=== PATIENT | male | born 1975 | race Caucasian/White ===

== ENCOUNTER 2017-08-25 01:57 | Emergency (ER) | payer BC, OTHER ==
[~2017-08-25] VITALS: Ht 172.7 cm; Wt 94.3 kg
[~2017-08-25 01:57] MED LIST: ERYTHROMYCIN S PO; LEVAQUIN500 MG PO; LORTAB 7.5-5001 EACH PO; PREDNISONE10 MG PO; SYMBICORT 80-10.2 GM INH; TAMSULOSIN HCL0.4 MG PO; TYLENOL WITH C1 EACH PO; VICODIN ES 7.51 EACH PO; ZOFRAN8 MG PO
[2017-08-25] MEDS ORDERED: TRAZODONE HCL50 MG PO (02:51)
[2017-08-25] MEDS ORDERED: PERCOCET 10-321 EACH (02:51)
[2017-08-25] MEDS ORDERED: XANAX0.5 MG (02:51)
[2017-08-25] MEDS ORDERED: BACLOFEN10 MG PO (02:51)
[2017-08-25] MEDS ORDERED: GABAPENTIN400 MG PO (02:51)
[2017-08-25] MEDS ORDERED: METHYLPREDNISOLONE SOD SUCC 125 MG/2ML VIAL IM ONE (03:00)
== END 2017-08-25 02:55 | disposition home or self-care (01) ==
LOC: FSED 01:57
DX: T63.441A Toxic effect of venom of bees, accidental (unintentional), initial encounter (principal); S60.465A Insect bite (nonvenomous) of left ring finger, initial encounter; T78.49XA Other allergy, initial encounter; F17.210 Nicotine dependence, cigarettes, uncomplicated
CPT/HCPCS: 99282; J2930

== ENCOUNTER 2018-02-27 18:04 | Emergency (ER) | payer OTHER ==
[~2018-02-27] VITALS: Ht 172.7 cm; Wt 94.3 kg
[~2018-02-27 18:04] MED LIST changes: +BACLOFEN10 MG PO; +GABAPENTIN400 MG PO; +PERCOCET 10-321 EACH; +TRAZODONE HCL50 MG PO; +XANAX0.5 MG
--- OUTSIDE RECORDS SUMMARY | 2018-02-27 18:11 | XMS REPORT | CCD ---
Author Author Auto Generated Organization [facility] Address Unknown Phone Unavailable Care Team Providers Care Melter Helper Name Role Phone Vic Mauricio CP Allergies, Adverse Reactions, Alerts Substance Reaction Status naproxen Active penicillins Active [place] C Active Toradol Active traMADol Active Ultram Active Zofran Active Problem List Condition Effective Dates Status Kidney calculus Resolved Stent Resolved Medications Medication Instructions Start Date End Date Status morphine Sulfate 4 mg, Route: IVP, Drug form: INJ, 05/16/2013 05/16/2013 Completed ONCE, Dosing Weight 88.636, kg, Priority: STAT, Start date: 05/16/13 15:16:00, Stop date: 05/16/13 15:16:00 Phenergan 12.5 mg, Route: IVPB, ONCE, Dosing 05/16/2013 05/16/2013 Completed Weight 88.636, kg, Priority: STAT, Start date: 05/16/13 15:16:00, Stop date: 05/16/13 15:16:00 Sodium Chloride 0.9% 1,000 mL, Rate: 1,000 ml/hr, Infuse 05/16/2013 05/16/2013 Completed (Bolus) IV 1000 mL over: 1 hr, Route: IV, Dosing Weight 88.636 kg, Total Volume: 1,000, Priority: STAT, Start date: 05/16/13 15:16:00, Duration: 1 doses or times, Stop date: 05/16/13 16:15:00, Bolus Dose Bolus Dose [place] 7.5/325 oral See Instructions, Pain, 1-2 tab PO 05/16/2013 Ordered tablet Q4-6H 5 day, # 12 tab, 0 Refill(s) 1-2 tab PO Q4-6H 5 day morphine Sulfate 2 mg, Route: IVP, Drug form: INJ, 05/16/2013 05/16/2013 Completed ONCE, Dosing Weight 88.636, kg, Priority: STAT, Start date: 05/16/13 16:44:00, Stop date: 05/16/13 16:44:00 influenza virus 0.5 ml, Route: IM, Drug Form: INJ, 02/20/2007 02/20/2007 Completed vaccine, inactivated Start date: 02/20/07 9:00:00 Immunizations Vaccine Date Status influenza virus vaccine, inactivated 02/20/2007 Modified Vital Signs Most recent to oldest [Reference Range]: 1 2 Height 177.8 cm (05/16/2013 15:02:00) Temperature Oral [96.4-99.1 DegF] 98.4 DegF (05/16/2013 17:40:00) 98.2 DegF (05/16/2013 15:02:00) Systolic Blood Pressure [90-140 mmHg] 107 mmHg (05/16/2013 17:40:00) 122 mmHg (05/16/2013 15:02:00) Diastolic Blood Pressure [60-90 mmHg] 65 mmHg (05/16/2013 17:40:00) 79 mmHg (05/16/2013 15:02:00) Respiratory Rate [14-20 BRMIN] 18 BRMIN (05/16/2013 17:40:00) 18 BRMIN (05/16/2013 15:02:00) Peripheral Pulse Rate [60-100 bpm] 62 bpm (05/16/2013 17:40:00) 96 bpm (05/16/2013 15:02:00) Weight 88.636 kg (05/16/2013 15:02:00) Results URINALYSIS Most recent to oldest [Reference Range]: 1 UA Turbidity [Clear] Marked *ABN* (05/16/2013:25:00) UA Color [Yellow] Yellow *NA* (05/16/2013:25:00) UA pH [5.0-8.0] 6.0 (05/16/2013:25:00) UA Spec Grav [<=1.030] 1.011 (05/16/2013:25:00) UA Glucose [Negative mg/dL] Negative mg/dL *NA* (05/16/2013:25:00) UA Blood [Negative] Large *ABN* (05/16/2013:25:00) UA Ketones [Negative mg/dL] Negative mg/dL *NA* (05/16/2013:25:00) UA Protein [Negative mg/dL] Negative mg/dL (05/16/2013:25:00) UA Urobilinogen [0.1-1.0 mg/dL] <=1.0 mg/dL *NA* (05/16/2013:25:00) UA Bili [Negative] Negative *NA* (05/16/2013:25:00) UA Leuk Est [Negative] Small *ABN* (05/16/2013:25:00) UA Nitrite [Negative] Negative (05/16/2013:25:00) UA WBC [0-5 /HPF] 7 /HPF *HI* (05/16/2013:25:00) UA RBC [0-2 /HPF] >182 /HPF *HI* (05/16/2013:25:00) UA Bacteria [None Seen /HPF] Occasional /HPF *NA* (05/16/2013:25:00) UA Sq Epi [Few /LPF] Few /LPF *NA* (05/16/2013:25:00) UA Mucus [None Seen /LPF] Few /LPF *NA* (05/16/2013:25:00) CHEMISTRY Most recent to oldest [Reference Range]: 1 Sodium Lvl [135-145 mEq/L] 138 mEq/L (05/16/2013 15:46:00) Potassium Lvl [3.5-5.1 mEq/L] 3.4 mEq/L *LOW* (05/16/2013:46:00) Chloride Lvl [95-109 mEq/L] 105 mEq/L (05/16/2013:46:00) CO2 [24-32 mEq/L] 25 mEq/L (05/16/2013:46:00) AGAP [10.0-20.0 mEq/L] 11.4 mEq/L (05/16/2013:46:00) Creatinine Lvl [0.5-1.4 mg/dL] 0.9 mg/dL (05/16/2013:46:00) eGFR 106 mL/min/1.73m2 1 *NA* (05/16/2013 15:46:00) BUN [7-22 mg/dL] 6 mg/dL *LOW* (05/16/2013:46:00) Glucose Lvl [70-99 mg/dL] 105 mg/dL 2 *HI* (05/16/2013:46:00) Calcium Lvl [8.5-10.5 mg/dL] 10.2 mg/dL (05/16/2013:46:00) 1Result Comment: The eGFR is calculated using the CKD-EPI formula. In most young, healthy individuals the eGFR will be >90 mL/min/1.73m2. The eGFR declines with age. An eGFR of 60-89 may be normal in some populations, particularly the elderly, for whom the CKD-EPI formula has not been extensively validated. Use of the eGFR is not recommended in the following populations: Individuals with unstable creatinine concentrations, including patients and those with serious co-morbid conditions. Patients with extremes in muscle mass or diet. The data above are obtained from the National Kidney Disease Education Program ( NKDEP) which additionally recommends that when the eGFR is used in patients with extremes of body mass index for purposes of drug dosing, the eGFR should be mul tiplied by the estimated BMI. 2Interpretive Data: Adult reference range values reflect the clinical guidelines of the [place] [employer]. HEMATOLOGY Most recent to oldest [Reference Range]: 1 WBC [3.7-10.4 K/CMM] 13.9 K/CMM *HI* (05/16/2013:46:) RBC [4.70-6.10 M/CMM] 5.01 M/CMM (05/16/2013:46:00) Hgb [14.0-18.0 g/dL] 14.8 g/dL (05/16/2013:46:00) Hct [42.0-54.0 %] 44.3 % (05/16/2013:46:00) MCV [80.0-94.0 fL] 88.4 fL (05/16/2013:46:00) MCH [27.0-31.0 pg] 29.5 pg (05/16/2013:46:00) MCHC [32.0-36.0 g/dL] 33.4 g/dL (05/16/2013 15:46:00) RDW [11.5-14.5 %] 15.7 % *HI* (05/16/2013 15:46:00) Platelet [133-450 K/CMM] 205 K/CMM (05/16/2013 15:46:00) MPV [7.4-10.4 fL] 9.7 fL (05/16/2013 15:46:00) Segs [45.0-75.0 %] 74.8 % (05/16/2013 15:46:00) Lymphocytes [20.0-40.0 %] 17.1 % *LOW* (05/16/2013 15:46:00) Monocytes [2.0-12.0 %] 5.5 % (05/16/2013 15:46:00) Eosinophils [0.0-4.0 %] 2.1 % (05/16/2013 15:46:00) Basophils [0.0-1.0 %] 0.5 % (05/16/2013 15:46:00) Segs-Bands # [1.5-8.1 K/CMM] 10.4 K/CMM *HI* (05/16/2013 15:46:00) Lymphocytes # [1.0-5.5 K/CMM] 2.4 K/CMM (05/16/2013 15:46:00) Monocytes # [0.0-0.8 K/CMM] 0.8 K/CMM (05/16/2013 15:46:00) Eosinophils # [0.0-0.5 K/CMM] 0.3 K/CMM (05/16/2013 15:46:00) Basophils # [0.0-0.2 K/CMM] 0.1 K/CMM (05/16/2013 15:46:00) PT [12.0-14.7 seconds] 11.4 seconds *LOW* (05/16/2013 15:46:00) INR [0.85-1.17] 0.83 3 *LOW* (05/16/2013 15:46:00) PTT [22.9-35.8 seconds] 27.1 seconds 4 (05/16/2013 15:46:00) 3Interpretive Data: RECOMMENDED RANGES FOR PROTIME INR: 2.0-3.0 for most medical and surgical thromboembolic states. 2.5-3.5 for artificial heart valves and recurrent embolism. INR SHOULD BE USED ONLY FOR PATIENTS ON STABLE ANTICOAGULANT THERAPY. 4Interpretive Data: Heparin Therapeutic Range: 57 - 92 Seconds
--- OUTSIDE RECORDS SUMMARY | 2018-02-27 18:11 | XMS REPORT | CCD ---
Author Author Auto Generated Organization [facility] Address Unknown Phone Unavailable Care Team Providers Care Dice Table Person Name Role Phone Vic Mauricio CP Allergies, Adverse Reactions, Alerts Substance Reaction Status naproxen Active penicillins Active [place] C Active Toradol Active traMADol Active Ultram Active Zofran Active Problem List Condition Effective Dates Status Kidney calculus Resolved Stent Resolved Medications Medication Instructions Start Date End Date Status influenza virus 0.5 ml, Route: IM, Drug Form: INJ, 02/20/2007 02/20/2007 Completed vaccine, inactivated Start date: 02/20/07 9:00:00 Immunizations Vaccine Date Status influenza virus vaccine, inactivated 02/20/2007 Modified Vital Signs Most recent to oldest [Reference Range]: 1 Height 177.8 cm (02/25/2013 15:47:00) Temperature Oral [96.4-99.1 DegF] 98.5 DegF (02/25/2013 15:47:00) Systolic Blood Pressure [90-140 mmHg] 109 mmHg (02/25/2013 15:47:00) Diastolic Blood Pressure [60-90 mmHg] 65 mmHg (02/25/2013 15:47:00) Respiratory Rate [14-20 BRMIN] 18 BRMIN (02/25/2013 15:47:00) Peripheral Pulse Rate [60-100 bpm] 88 bpm (02/25/2013 15:47:00) Weight 88.636 kg (02/25/2013 15:47:00)
--- OUTSIDE RECORDS SUMMARY | 2018-02-27 18:11 | XMS REPORT | Continuity of Care Document ---
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 ml/hr, Infuse over: 4 hr, Route: IV, Dosing Weight 94.591 kg, Total Volume: 500, Start date: 05/23/16 10:10:00 [employer], Duration: 30 day, Stop date: 06/22/16 10:09:00 [employer] No Longer Active 05/23/2016 [facility] Calcium Chloride 0.0014 MEQ/ML / Potassium Chloride 0.004 MEQ/ML / Sodium Chloride 0.103 MEQ/ML / Sodium Lactate 0.028 MEQ/ML Injectable Solution 1,000 mL, Rate: 125 ml/hr, Infuse over: 8 hr, Route: IV, Dosing Weight 94.591 kg, Total Volume: 1,000, Start date: 05/23/16 10:10:00 [employer], Duration: 30 day, Stop date: 06/22/16 10:09:00 [employer] No Longer Active 05/23/2016 [facility] propofol (ANES) Route: IV, Drug form: INJ, ONCE, Stop date: 05/23/16 10:01:00 [employer] Inactive 05/23/2016 [facility] lidocaine (ANES) Route: IV, Drug form: INJ, ONCE, Stop date: 05/23/16 10:01:00 [employer] Inactive 05/23/2016 [facility] fentaNYL (ANES) Route: IV, Drug form: INJ, ONCE, Stop date: 05/23/16 10:01:00 [employer] Inactive 05/23/2016 [facility] dexamethasone (ANES) Route: IV, Drug form: INJ, ONCE, Stop date: 05/23/16 9:56:00 [employer] Inactive 05/23/2016 [facility] famotidine (ANES) Route: IV, Drug form: INJ, ONCE, Stop date: 05/23/16 9:56:00 [employer] Inactive 05/23/2016 [facility] metoclopramide (ANES) Route: IV, Drug form: INJ, ONCE, Stop date: 05/23/16 9:56:00 [employer] Inactive 05/23/2016 [facility] midazolam (ANES) Route: IV, Drug form: SOLN, ONCE, Stop date: 05/23/16 9:46:00 [employer] Inactive 05/23/2016 [facility] LR 1000 mL INJ (ANES) Route: IV, Total Volume: 1,000, Start date: 05/23/16 9:05:00 [employer], Stop date: 05/23/16 10:05:00 [employer] Inactive 05/23/2016 [facility] Albuterol 0.833 MG/ML / Ipratropium Barry 0.167 MG/ML Inhalant Solution 3 mL, Route: NEB, Dosing Weight 94.591, kg, ONCE, STAT, Start date: 05/23/16 8:55:00 [employer], Stop date: 05/23/16 8:55:00 [employer] Inactive 05/23/2016 [facility] Calcium Chloride 0.0014 MEQ/ML / Potassium Chloride 0.004 MEQ/ML / Sodium Chloride 0.103 MEQ/ML / Sodium Lactate 0.028 MEQ/ML Injectable Solution 1,000 mL, Rate: 25 ml/hr, Infuse over: 40 hr, Route: IV, Dosing Weight 94.591 kg, Total Volume: 1,000, Start date: 05/23/16 8:55:00 [employer], Duration: 30 day, Stop date: 06/22/16 8:54:00 [employer] Inactive 05/23/2016 [facility] Sodium Chloride 0.154 MEQ/ML Injectable Solution 500 mL, Rate: 25 ml/hr, Infuse over: 20 hr, Route: IV, Dosing Weight 94.591 kg, Total Volume: 500, Start date: 05/23/16 8:55:00 [employer], Duration: 30 day, Stop date: 06/22/16 8:54:00 [employer] Inactive 05/23/2016 [facility] Breo Ellipta INHALATION, Daily, 0 Refill(s) Active 05/21/2016 [facility] Albuterol 1 MG/ML Inhalant Solution 2.5 mg, INHALATION, Q6H, PRN wheezing, # 20 ea, 0 Refill(s) Active 05/21/2016 [facility] Acetaminophen 33.3 MG/ML / Diphenhydramine Hydrochloride 1.67 MG/ML Oral Solution [Tylenol PM] 30 ml, PO, Bedtime, PRN for sleep, # 240 ml, 0 Refill(s) Active 05/21/2016 [facility] Trazodone PO, 0 Refill(s) Active 05/21/2016 [facility] Acetaminophen 325 MG / Hydrocodone Bitartrate 10 MG Oral Tablet [[place] 10/325] 1 tab, PO, Q6H, 0 Refill(s) Active 05/21/2016 [facility] Cipro 400 mg, Route: IVPB, [id number], Dosing Weight 99.716, kg, Start date: 05/18/16 9:00:00 [employer], Duration: 30 day, Stop date: 06/16/16 21:00:00 [employer] No Longer Active 05/18/2016 [facility] Breo Ellipta 1 puff Inhalation Active 100-25 MCG/INH Inhalation Once a day Ijeoma 05/09/2016 [facility]ерг[facility] Medrol as directed Orally Active 4 MG Orally as directed 05/09/2016 Сергей [facility] Albuterol Sulfate HFA 2 puffs as needed Inhalation Active 108 (90 Base) MCG/ACT Inhalation every 4 hrs 05/09/2016 Сергей Morales MethylPREDNISolone as directed Orally Active 4 MG Orally as directed 03/14/2016 Сергей Morales Carbamide Peroxide as directed Otic Active 6.5 % Otic as directed 03/14/2016 Сергей Morales Levofloxacin 1 tablet Orally Active 500 MG Orally Once a day 03/14/2016 Сергей Marshall Permethrin as directed Externally Active 1 % Externally as directed 02/06/2016 Сергей Morales Acetaminophen-Codeine #3 1 tablet as needed Orally Active 300- 30 MG Orally twice a day (bid) as needed (prn) [facility] 11/25/2015 Сергей Morales Synthroid 1 tablet Orally Active 75 MCG Orally Once a day [facility] 07/14/2015 Сергей Morales fentaNYL 50 mcg/hr transdermal film, extended release 1 patch, TOP, Q72H, # 10 patch, 0 Refill(s), given to patient Active 11/04/2014 [facility] Acetaminophen 325 MG / Hydrocodone Bitartrate 10 MG Oral Tablet [[place] 10/325] 1 tab, PO, Q4H, PRN for pain, X 10 day, # 60 tab, 0 Refill(s), given to patient Active 11/04/2014 [facility] Duragesic-50 1 patch, Route: TOP, Dosing Weight 88.636, kg, Q72H, Start date: 11/04/14 14:00:00, Duration: 30 day, Stop date: 12/01/14 14:00:00 Inactive 11/04/2014 [facility] Metronidazole 500 MG Oral Tablet [Flagyl] 500 mg=1 tab, PO, Q8H, X 7 day, # 21 tab, 0 Refill(s) Active 11/04/2014 [facility] Ciprofloxacin 500 MG Oral Tablet [Cipro] 500 mg=1 tab, PO, Q12H, X 7 day, # 14 tab, 0 Refill(s) Active 11/04/2014 [facility] temazepam 15 mg oral capsule 15 mg=1 cap, PO, Bedtime, PRN Sleep, # 30 cap, 0 Refill(s) Active 11/04/2014 [facility] levothyroxine 75 mcg (0.075 mg) oral tablet 75 microgram=1 tab, PO, Daily, # 30 tab, 0 Refill(s) Active 11/04/2014 [facility] Duragesic-25 1 patch, Route: TOP, Drug Form: ERFILM, Q72H, Start date: 11/04/14 10:00:00, Duration: 30 day, Stop date: 12/01/14 10:00:00Notes: (Same as: Duragesic) Check for product integrity. Apply to intact skin "Remove old patch before application of new patch" Inactive 11/04/2014 [facility] Acetaminophen 325 MG / Hydrocodone Bitartrate 10 MG Oral Tablet 1 tab, Route: PO, Drug Form: TAB, Dosing Weight 88.636, kg, Q4H, PRN Pain Score 1-5, Start date: 11/04/14 9:23:00, Duration: 30 day, Stop date: 12/04/14 9:22:00Notes: Do not exceed 4gm/day of acetaminophen. (Same as: [place] 325/10) Inactive 11/04/2014 [facility] pantoprazole 40 mg, 1 tab, Route: PO, Drug form: ECTAB, Before Dinner, Dosing Weight 88.636, kg, Start date: 11/03/14 16:30:00, Duration: 30 day, Stop date: 12/02/14 16:30:00Notes: Tablet should not be chewed or crushed. (Same as: Protonix) No Longer Active 11/03/2014 [facility] meropenem 500 mg, Route: IVPB, ABXQ6H, Dosing Weight 88.636, kg, CrCL=26 -49 ml/min, Extended infusion, infuse over 3 hours, Start date: 11/03/14 11:00:00, Duration: 30 day, Stop date: 12/03/14 5:00:00Notes: Same as Merrem MEDICATION WASTE Product Size: 500 mg Product Wasted: ___ mg No Longer Active 11/03/2014 [facility] Tylenol 650 mg, 2 tab, Route: PO, Drug form: TAB, TID, Dosing Weight 88.636, kg, PRN For Temp > 100.4 F, Start date: 11/03/14 10:09:00, Duration: 30 day, Stop date: 12/03/14 10:08:00, feverNotes: Do not exceed 4 gm/day. (Same as: Tylenol) No Longer Active 11/03/2014 [facility] pantoprazole 40 mg, 1 tab, Route: PO, Drug form: ECTAB, Daily, Dosing Weight 88.636, kg, Start date: 11/03/14 9:00:00, Duration: 30 day, Stop date: 12/02/14 9:00:00Notes: Tablet should not be chewed or crushed. ( Same as: Protonix) No Longer Active 11/03/2014 [facility] Famotidine 20 mg, 1 tab, Route: PO, Drug form: TAB, Q12H, Dosing Weight 88.636, kg, Start date: 11/02/14 21:00:00, Duration: 30 day, Stop date: 12/02/14 9:00:00Notes: (Same as: Pepcid) No Longer Active 11/03/2014 [facility] Dilaudid 0.5 mg, Route: IVP, ONCE, Dosing Weight 88.636, kg, Priority: STAT, Start date: 11/02/14 14:38:00, Stop date: 11/02/14 14:38:00 Inactive 11/02/2014 [facility] Dilaudid 0.5 mg, Route: IVP, ONCE, Dosing Weight 88.636, kg, Priority: STAT, Start date: 11/02/14 14:36:00, Stop date: 11/02/14 14:36:00 Inactive 11/02/2014 [facility] Fentanyl 50 microgram, Route: IVP, ONCE, Dosing Weight 88.636, kg, Start date: 11/02/14 14:26:00, Stop date: 11/02/14 14:26:00 Inactive 11/02/2014 [facility] Fentanyl 50 microgram, Route: IVP, ONCE, Dosing Weight 88.636, kg, Start date: 11/02/14 14:18:00, Stop date: 11/02/14 14:18:00 Inactive 11/02/2014 [facility] NS + KCL 20mEq/L 1000ml (Premix) 1,000 mL 1,000 mL, Rate: 60 ml/hr, Infuse over: 16.7 hr, Route: IV, Dosing Weight 88.636 kg, Total Volume: 1,000, Start date: 11/02/14 13:28:00, Duration: 30 day, Stop date: 12/02/14 13:27:00Notes: PREMIX IV - Do Not Alter No Longer Active 11/02/2014 [facility] Hydromorphone 1 mg, 1 mL, Route: IVP, Drug form: INJ, Q3H, Dosing Weight 88.636, kg, PRN Pain Score 4-6, Start date: 11/02/14 13:28:00, Duration: 30 day, Stop date: 12/02/14 13:27:00 No Longer Active 11/02/2014 [facility] Ondansetron 4 mg, 2 mL, Route: IVP, Drug form: INJ, Q6H, Dosing Weight 88.636, kg, PRN Nausea & Vomiting, Start date: 11/02/14 13:28:00, Duration: 30 day, Stop date: 12/02/14 13:27:00Notes: (Same as: Zofran) MEDICATION WASTE Product Size: 4 mg Product Wasted: ___ mg No Longer Active 11/02/2014 [facility] Cefoxitin 2 gm, Route: IVPB, ONCE, Dosing Weight 88.636, kg, Start date: 11/02/14 12:14:00, Stop date: 11/02/14 12:14:00Notes: (Same As: Mefoxin) MEDICATION WASTE Product Size: 2000 mg Product Wasted: ___ mg Inactive 11/02/2014 [facility] onabotulinumtoxinA 100 unit, Route: INJ, Drug form: INJ, ONCE, Dosing Weight 88.636, kg, Start date: 11/02/14 12:04:00, Stop date: 11/02/14 12:04:00Notes: "TO BE RECONSTITUTED AND ADMINISTERED ONLY BY A PHYSICIAN" Reconstitute with preservative free NS only. Stability=4 hours after reconstitution. (Same As: Botox) Inactive 11/02/2014 [facility] Exparel 20 mL, Route: InFILtration(local), Drug Form: INJ, Dosing Weight 88.636, kg, ONCALL, For Hemorrhoidectomy, Start date: 11/02/14 12:00:00, Duration: 1 day, Stop date: 11/03/14 11:59:00Notes: (Same as: Exparel) NOT FOR IV use Postoperative analgesia: Infiltration (local): Dose is based on surgical site and volume required to cover the area (in general, the maximum total dose is 266 mg). Bunionectomy: 7 mL into the tissues surrounding the osteotomy and 1 mL into the subcutaneous tissue of the surgical site (total dose=8 mL [106 mg]) Hemorrhoidectomy: 30 mL (20 mL vial diluted with 10 mL NS) d ivided and administered as 6 injections of 5 mL each (total dose=30 mL [266 mg]) No Longer Active 11/02/2014 [facility] Lactated Ringers IV 500 mL 500 mL, Rate: 25 ml/hr, Infuse over: 20 hr, Route: IV, Dosing Weight 88.636 kg, Total Volume: 500, Start date: 11/02/14 11:41:00, Duration: 30 day, Stop date: 12/02/14 11:40:00 Inactive 11/02/2014 [facility] Ativan 1 mg, 0.5 mL, Route: IVP, Drug form: INJ, ONCE, Dosing Weight 88.636, kg, PRN Anxiety, Start date: 11/02/14 9:31:00Notes: (Same as: Ativan) Inactive 11/02/2014 [facility] 120 ACTUAT Fluticasone propionate 0.05 MG/ACTUAT Nasal Inhaler 50 microgram, Route: NASAL, Drug Form: SPRY, Dosing Weight 88.636, kg, Daily, Start date: 11/02/14 9:00:00, Duration: 30 day, Stop date: 12/01/14 9:00:00Notes: (Same as: Flonase) No Longer Active 11/02/2014 [facility] Thyroxine 50 microgram, 1 tab, Route: PO, Drug form: TAB, Q630AM, Dosing Weight 88.636, kg, Start date: 11/02/14 6:30:00, Duration: 30 day, Stop date: 12/01/14 6:30:00Notes: Take 1 hour before or 2 hours after meal; Enteral feeds may interefere with the absorption of this medication.(Same as:Levothroid, Synthroid) No Longer Active 11/02/2014 [facility] Amitriptyline 25 mg, 1 tab, Route: PO, Drug form: TAB, Bedtime, Dosing Weight 88.636, kg, Start date: 11/01/14 21:00:00, Duration: 30 day, Stop date: 11/30/14 21:00:00Notes: (Same as: Elavil) No Longer Active 11/02/2014 [facility] quetiapine 100 mg, 1 tab, Route: PO, Drug form: TAB, Bedtime, Dosing Weight 88.636, kg, Start date: 11/01/14 21:00:00, Duration: 30 day, Stop date: 11/30/14 21:00:00Notes: (Same as: SEROquel) No Longer Active 11/02/2014 [facility] Temazepam 15 mg, 1 cap, Route: PO, Drug form: CAP, Bedtime, Dosing Weight 88.636, kg, PRN Sleep, Start date: 11/01/14 17:24:00, Duration: 30 day, Stop date: 12/01/14 17:23:00Notes: (Same As: Restoril) No Longer Active 11/01/2014 [facility] metaxalone 800 mg, 1 tab, Route: PO, Drug form: TAB, BID, Dosing Weight 88.636, kg, Start date: 11/01/14 17:00:00, Duration: 30 day, Stop date: 12/01/14 9:00:00Notes: (Same as: Skelaxin) No Longer Active 11/01/2014 [facility] Hydrocortisone 25 MG/ML Rectal Cream [Anusol HC] 1 appl, Route: KS, BID, Drug form: CRM/A, Start date: 11/01/14 17:00:00, Duration: 30 day, Stop date: 12/01/14 9:00:00Notes: (Same as: Anusol-HC, Proctosol-HC) No Longer Active 11/01/2014 [facility] pantoprazole 40 mg, 1 tab, Route: PO, Drug form: ECTAB, Before Dinner, Dosing Weight 88.636, kg, Start date: 11/01/14 16:30:00, Duration: 30 day, Stop date: 11/30/14 16:30:00Notes: Tablet should not be chewed or crushed. (Same as: Protonix) No Longer Active 11/01/2014 [facility] Duragesic-25 1 patch, Route: TOP, Drug Form: ERFILM, Q72H, Start date: 11/01/14 15:00:00, Duration: 30 day, Stop date: 11/28/14 15:00:00Notes: (Same as: Duragesic) Check for product integrity. Apply to intact skin "Remove old patch before application of new patch" No Longer Active 11/01/2014 [facility] Dilaudid 1 mg, 1 mL, Route: IVP, Drug form: INJ, Q3H, Dosing Weight 88.636, kg, PRN Pain Score 7-10, Start date: 11/01/14 14:56:00, Duration: 30 day, Stop date: 12/01/14 14:55:00 No Longer Active 11/01/2014 [facility] Nicotine Route: TOP, Drug form: ERFILM, Q24H, Dosing Weight 88.636, kg, Start date: 11/01/14 13:00:00, Duration: 30 day, Stop date: 11/30/14 13:00:00Notes: (Same as: Habitrol) "Remove old patch before application of new patch" No Longer Active 11/01/2014 [facility] gabapentin 600 MG Oral Tablet 600 mg, 2 cap, Route: PO, Drug form: CAP, TID, Dosing Weight 88.636, kg, Start date: 11/01/14 13:00:00, Duration: 30 day, Stop date: 12/01/14 9:00:00Notes: (Same as: Neurontin) No Longer Active 11/01/2014 [facility] Baclofen Route: PO, Drug form: TAB, TID, Dosing Weight 88.636, kg, Start date: 11/01/14 13:00:00, Duration: 30 day, Stop date: 12/01/14 9:00:00Notes: (Same As: Lioresal) No Longer Active 11/01/2014 [facility] Alprazolam 2 MG Oral Tablet [Xanax] 2 mg, 2 tab, Route: PO, Drug form: TAB, TID, Dosing Weight 88.636, kg, Start date: 11/01/14 13:00:00, Duration: 30 day, Stop date: 12/01/14 9:00:00Notes: With food or milk (Same as: Xanax) No Longer Active 11/01/2014 [facility] Fentanyl 25 microgram, Route: TOP, Drug form: ERFILM, Q72H, Dosing Weight 88.636, kg, Start date: 11/01/14 11:00:00, Duration: 30 day, Stop date: 11/28/14 11:00:00Notes: (Same as: Duragesic) Check for product integrity. Apply to intact skin "Remove old patch before application of new patch" Inactive 11/01/2014 [facility] Phenergan 12.5 mg, 0.5 mL, Route: IVPB, TID, Dosing Weight 88.636, kg, PRN as needed for nausea/vomiting, Priority: STAT, Start date: 11/01/14 10:49:00, Duration: 30 day, Stop date: 12/01/14 10:48:00Notes: Do not give IV push. (Same as: Phenergan) No Longer Active 11/01/2014 [facility] Docusate 100 mg, Route: PO, BID, Dosing Weight 88.636, kg, PRN Constipation, Start date: 11/01/14 10:47:00, Duration: 30 day, Stop date: 12/01/14 10:46:00 Inactive 11/01/2014 [facility] Promethazine 25 mg, 1 tab, Route: PO, Drug form: TAB, Q6H, Dosing Weight 88.636, kg, PRN as needed for nausea/vomiting, Start date: 11/01/14 10:43:00, Duration: 30 day, Stop date: 12/01/14 10:42:00Notes: (Same as : Phenergan) No Longer Active 11/01/2014 [facility] Docusate Sodium 100 MG Oral Capsule [Colace] 100 mg, 1 cap, Route: PO, Drug form: CAP, BID, Dosing Weight 88.636, kg, PRN as needed for constipation, Start date: 11/01/14 10:42:00, Duration: 30 day, Stop date: 12/01/14 10:41:00Notes: (Same as: Colace) (Do Not Crush) No Longer Active 11/01/2014 [facility] Acetaminophen 325 MG / Hydrocodone Bitartrate 10 MG Oral Tablet 1 tab, Route: PO, Drug Form: TAB, Dosing Weight 88.636, kg, Q6H, PRN Pain Score 1-5, Start date: 11/01/14 10:42:00, Duration: 30 day, Stop date: 12/01/14 10:41:00Notes: Do not exceed 4gm/day of acetaminophen. (Same as: [place] 325/10) No Longer Active 11/01/2014 [facility] Phenergan 12.5 mg, 0.5 mL, Route: IVPB, ONCE, Dosing Weight 88.636, kg, Priority: STAT, Start date: 11/01/14 9:21:00, Stop date: 11/01/14 9:21:00Notes: Do not give IV push. (Same as: Phenergan) Inactive 11/01/2014 [facility] Morphine 4 mg, 2 mL, Route: IVP, Drug form: INJ, ONCE, Dosing Weight 88.636, kg, Priority: STAT, Start date: 11/01/14 7:35:00, Stop date: 11/01/14 7:35:00Notes: (Same as:MORPhine Sulfate) Inactive 11/01/2014 [facility] Sodium Chloride 0.154 MEQ/ML Injectable Solution 1,000 mL, 1000 ml/hr, Infuse Over: 1 hr, Route: IV, 1,000, Drug form: INJ, ONCE, Priority: STAT, Dosing Weight 88.636 kg, Start date: 11/01/14 7:35:00, Duration: 1 doses or times, Stop date: 11/01/14 7:35:00 Inactive 11/01/2014 [facility] Saline Flush 0.9% 10 mL, Route: IVP, Drug Form: INJ, Dosing Weight 88.636, kg, PRN, PRN Line Flush, Start date: 11/01/14 7:35:00, Duration: 30 day, Stop date: 12/01/14 7:34:00Notes: (Same as: BD Posiflush) No Longer Active 11/01/2014 [facility] Alprazolam 2 MG Oral Tablet [Xanax] 2 mg=1 tab, PO, TID, 0 Refill(s) Active 11/01/2014 [facility] quetiapine 100 mg, PO, Bedtime, 0 Refill(s) Active 11/01/2014 [facility] metaxalone 800 mg, PO, BID, 0 Refill(s) Active 11/01/2014 [facility] Lidocaine 40 MG/ML Topical Cream 1 appl, Route: TOP, TID, Start date: 10/22/14 9:00:00, Duration: 30 day, Stop date: 11/20/14 17:00:00 Inactive 10/22/2014 [facility] Docusate Sodium 100 MG Oral Capsule [Colace] 100 mg=1 cap, PO, BID, PRN Constipation, # 20 cap, 0 Refill(s) Active 10/22/2014 [facility] Hydrocortisone 25 MG/ML Rectal Cream [Anusol HC] 1 appl, KS, BID, X 14 day, # 30 gm, 0 Refill(s) Active 10/22/2014 [facility] Lidocaine 40 MG/ML Topical Cream 1 appl, Route: TOP, ONCE, Drug form: OINT, Start date: 10/22/14 3:53:00, Stop date: 10/22/14 3:53:00Notes: (Same as: Xylocaine) Inactive 10/22/2014 [facility] 24 HR Nicotine 0.875 MG/HR Transdermal Patch =1 patch, TOP, Daily, X 42 day, # 42 patch, 0 Refill(s) Active 09/27/2014 [facility] Aspirin 81 MG Enteric Coated Tablet 81 mg=1 tab, PO, Daily, 0 Refill(s) Active 09/27/2014 [facility] pantoprazole 40 mg, 1 tab, Route: PO, Drug form: ECTAB, Daily, Dosing Weight 89.091, kg, Start date: 09/27/14 9:00:00, Duration: 30 day, Stop date: 10/26/14 9:00:00Notes: Tablet should not be chewed or crushed. ( Same as: Protonix) Inactive 09/27/2014 [facility] Thyroxine 50 microgram, 1 tab, Route: PO, Drug form: TAB, Daily, Dosing Weight 89.091, kg, Start date: 09/27/14 9:00:00, Duration: 30 day, Stop date: 10/26/14 9:00:00Notes: Take 1 hour before or 2 hours after meal; Enteral feeds may interefere with the absorption of this medication.(Same as:Levothroid, Synthroid) Inactive 09/27/2014 [facility] gabapentin 600 MG Oral Tablet 600 mg, 2 cap, Route: PO, Drug form: CAP, TID, Dosing Weight 89.091, kg, Start date: 09/27/14 9:00:00, Duration: 30 day, Stop date: 10/26/14 17:00:00Notes: (Same as: Neurontin) No Longer Active 09/27/2014 [facility] 120 ACTUAT Fluticasone propionate 0.05 MG/ACTUAT Nasal Inhaler 50 microgram, Route: NASAL, Drug Form: SPRY, Dosing Weight 89.091, kg, Daily, Start date: 09/27/14 9:00:00, Duration: 30 day, Stop date: 10/26/14 9:00:00Notes: (Same as: Flonase) Inactive 09/27/2014 [facility] Baclofen Route: PO, Drug form: TAB, TID, Dosing Weight 89.091, kg, Start date: 09/27/14 9:00:00, Duration: 30 day, Stop date: 10/26/14 17:00:00Notes: (Same As: Lioresal) No Longer Active 09/27/2014 [facility] Aspirin 81 MG Enteric Coated Tablet 81 mg, 1 tab, Route: PO, Drug form: ECTAB, Daily, Dosing Weight 89.205, kg, Start date: 09/27/14 9:00:00, Duration: 30 day, Stop date: 10/26/14 9:00:00Notes: Do not crush or chew. (Same As: Ecotrin) Inactive 09/27/2014 [facility] Baclofen Route: PO, Drug form: TAB, TID, Dosing Weight 89.091, kg, Start date: 09/26/14 21:00:00, Duration: 30 day, Stop date: 10/26/14 17:00:00Notes: (Same As: Lioresal) No Longer Active 09/27/2014 [facility] gabapentin 600 MG Oral Tablet 600 mg, 2 cap, Route: PO, Drug form: CAP, TID, Dosing Weight 89.091, kg, Start date: 09/26/14 21:00:00, Duration: 30 day, Stop date: 10/26/14 17:00:00Notes: (Same as: Neurontin) No Longer Active 09/27/2014 [facility] Amitriptyline 25 mg, 1 tab, Route: PO, Drug form: TAB, Bedtime, Dosing Weight 89.091, kg, Start date: 09/26/14 21:00:00, Duration: 30 day, Stop date: 10/25/14 21:00:00Notes: (Same as: Elavil) No Longer Active 09/27/2014 [facility] Saline Flush 0.9% 10 ml, Route: IVP, Drug Form: INJ, Dosing Weight 89.205, kg, Q12H, Start date: 09/26/14 21:00:00, Duration: 30 day, Stop date: 10/26/14 9:00:00Notes: (Same as: BD Posiflush) No Longer Active 09/27/2014 [facility] Fentanyl 25 microgram, Route: TOP, Drug form: ERFILM, Q72H, Dosing Weight 89.091, kg, Start date: 09/26/14 18:00:00, Duration: 30 day, Stop date: 10/23/14 18:00:00Notes: (Same as: Duragesic) Check for product integrity. Apply to intact skin "Remove old patch before application of new patch" No Longer Active 09/26/2014 [facility] Promethazine 25 mg, 1 tab, Route: PO, Drug form: TAB, Q6H, Dosing Weight 89.091, kg, PRN as needed for nausea/vomiting, Start date: 09/26/14 17:52:00, Duration: 30 day, Stop date: 10/26/14 17:51:00Notes: (Same as : Phenergan) No Longer Active 09/26/2014 [facility] Acetaminophen 325 MG / Hydrocodone Bitartrate 10 MG Oral Tablet [[place] 10/325] 2 tab, Route: PO, Drug Form: TAB, Dosing Weight 89.091, kg, Q6H, PRN Pain Score 6-10, Start date: 09/26/14 17:51:00, Duration: 30 day, Stop date: 10/26/14 17:50:00Notes: Do not exceed 4gm/day of acetaminophen. (Same as: [place] 325/10) No Longer Active 09/26/2014 [facility] Acetaminophen 325 MG / Hydrocodone Bitartrate 10 MG Oral Tablet 1 tab, Route: PO, Drug Form: TAB, Dosing Weight 89.091, kg, Q6H, PRN Pain Score 1-5, Start date: 09/26/14 17:51:00, Duration: 30 day, Stop date: 10/26/14 17:50:00Notes: Do not exceed 4gm/day of acetaminophen. (Same as: [place] 325/10) No Longer Active 09/26/2014 [facility] Nicotine 21 mg, 1 patch, Route: TOP, Drug form: ERFILM, Daily, Dosing Weight 89.091, kg, Priority: NOW, Start date: 09/26/14 16:18:00, Duration: 30 day, Stop date: 10/26/14 9:00:00Notes: (Same as: Habitrol) &quo t;Remove old patch before application of new patch" No Longer Active 09/26/2014 [facility] gabapentin 600 MG Oral Tablet 600 mg=1 tab, PO, TID Active 09/26/2014 [facility] fentaNYL 25 mcg/hr transdermal film, extended release 1 patch, TOP, Q72H Active 09/26/2014 [facility] promethazine 25 mg oral tablet 25 mg=1 tab, PO, Q6H, PRN as needed for nausea/vomiting, 0 Refill(s) Active 09/26/2014 [facility] Acetaminophen 325 MG / Hydrocodone Bitartrate 10 MG Oral Tablet [[place] 10/325] 2 tab, PO, Q6H, PRN Pain Score 6-10, 0 Refill(s) No Longer Active 09/26/2014 [facility] amitriptyline 25 mg oral tablet 25 mg=1 tab, PO, Bedtime, 0 Refill(s) Active 09/26/2014 [facility] atropine 0.5 mg, 5 mL, Route: IVP, Drug form: INJ, PRN, PRN Bradycardia, Start date: 09/26/14 14:56:00, Duration: 30 day, Stop date: 10/26/14 14:55:00 No Longer Active 09/26/2014 [facility] Saline Flush 0.9% 10 ml, Route: IVP, Drug Form: INJ, Dosing Weight 89.205, kg, PRN, PRN Line Flush, Start date: 09/26/14 14:42:00, Duration: 30 day, Stop date: 10/26/14 14:41:00 Inactive 09/26/2014 [facility] Nitroglycerin 0.4 mg, 1 tab, Route: SL, Drug form: TAB, Q5Min, Dosing Weight 89.205, kg, PRN Chest Pain, Start date: 09/26/14 14:42:00, Duration: 3 doses or times, Stop date: Limited # of timesNotes: (Same as:Nitroqu ick, Nitrostat) "Do Not Crush" Sublingual tablet No Longer Active 09/26/2014 [facility] Lovenox 90 mg, 0.9 mL, Route: SUB-Q, Drug form: INJ, ONCE, Dosing Weight 89.205, kg, Priority: NOW, Start date: 09/26/14 14:04:00, Stop date: 09/26/14 14:04:00Notes: Nurse to ensure documentation of patient education per anticoagulation policy. (Same as: Lovenox) Inactive 09/26/2014 [facility] 120 ACTUAT Fluticasone propionate 0.05 MG/ACTUAT Nasal Inhaler 1 spray, NASAL, Daily, in each nostrilSpecial Instructions: in each nostril Active 09/26/2014 [facility] baclofen 10 mg oral tablet 1 tab-2tab, PO, TID Active 09/26/2014 [facility] gabapentin 300 MG Oral Capsule 600 mg=2 cap, PO, TID Inactive 09/26/2014 [facility] Acetaminophen 325 MG / Hydrocodone Bitartrate 10 MG Oral Tablet 1 tab, PO, Q6H, PRN Pain Score 1-5 Active 09/26/2014 [facility] fentaNYL 50 mcg/hr transdermal film, extended release 1 patch, TOP, Q72H Inactive 09/26/2014 [facility] levothyroxine 50 mcg (0.05 mg) oral tablet 50 microgram=1 tab, PO, Daily Active 09/26/2014 [facility] pantoprazole 40 mg oral enteric coated tablet 40 mg=1 tab, PO, Daily Active 09/26/2014 [facility] Aspirin 324 mg, Route: PO, ONCE, Dosing Weight 89.205, kg, Priority: STAT, Start date: 09/26/14 8:08:00, Stop date: 09/26/14 8:08:00 Inactive 09/26/2014 [facility] Saline Flush 0.9% 10 mL, Route: IVP, Drug Form: INJ, Dosing Weight 89.205, kg, PRN, PRN Line Flush, Start date: 09/26/14 8:08:00, Duration: 30 day, Stop date: 10/26/14 8:07:00Notes: (Same as: BD Posiflush) Inactive 09/26/2014 [facility] Acetaminophen 325 MG / Hydrocodone Bitartrate 5 MG Oral Tablet [[place] 5/325] 1-2 tab, PO, Q4-6H, PRN Pain, X 5 day, # 15 tab, 0 Refill(s) Active 08/29/2014 [facility] Dilaudid 0.5 mg, Route: IM, ONCE, Dosing Weight 84.545, kg, Start date: 08/29/14 12:12:00, Stop date: 08/29/14 12:12:00 Inactive 08/29/2014 [facility] Morphine 4 mg, Route: IVP, Drug form: INJ, ONCE, Dosing Weight 84.545, kg, Priority: STAT, Start date: 08/29/14 11:41:00, Stop date: 08/29/14 11:41:00 Inactive 08/29/2014 [facility] Acetaminophen 325 MG / Hydrocodone Bitartrate 5 MG Oral Tablet [[place] 5/325] 2 tab, Route: PO, Dosing Weight 84.545, kg, ONCE, Start date: 08/29/14 10:41:00, Stop date: 08/29/14 10:41:00 Inactive 08/29/2014 [facility] Acetaminophen 325 MG / Hydrocodone Bitartrate 7.5 MG Oral Tablet [[place] 7.5/325] 1 tab, Route: PO, Dosing Weight 87.273, kg, ONCE, Start date: 09/21/13 21:09:00, Stop date: 09/21/13 21:09:00 Inactive 09/22/2013 [facility] Acetaminophen 325 MG / Hydrocodone Bitartrate 5 MG Oral Tablet [[place] 5/325] 1-2 tab, PO, Q4-6H, Pain, # 24 tab, 0 Refill(s) Active 09/22/2013 [facility] [place] 7.5/325 oral tablet See Instructions, Pain, 1-2 tab PO Q4-6H 5 day, # 12 tab, 0 Refill(s)1-2 tab PO Q4-6H 5 day Active Osiel 05/16/2013 [facility] morphine Sulfate 2 mg, Route: IVP, Drug form: INJ, ONCE, Dosing Weight 88.636, kg, Priority: STAT, Start date: 05/16/13 16:44:00, Stop date: 05/16/13 16:44:00 Inactive Enrique 05/16/2013 [facility] morphine Sulfate 4 mg, Route: IVP, Drug form: INJ, ONCE, Dosing Weight 88.636, kg, Priority: STAT, Start date: 05/16/13 15:16:00, Stop date: 05/16/13 15:16:00 Inactive Nunez 05/16/2013 [facility] Phenergan 12.5 mg, Route: IVPB, ONCE, Dosing Weight 88.636, kg, Priority: STAT, Start date: 05/16/13 15:16:00, Stop date: 05/16/13 15:16:00 Inactive Nunez 05/16/2013 [facility] Sodium Chloride 0.9% (Bolus) IV 1000 mL 1,000 mL, Rate: 1,000 ml/hr, Infuse over: 1 hr, Route: IV, Dosing Weight 88.636 kg, Total Volume: 1,000, Priority: STAT, Start date: 05/16/13 15:16:00, Duration: 1 doses or times, Stop date: 05/16/13 16:15:00, Bolus DoseBolus Dose Inactive Nunez 05/16/2013 [facility] influenza virus vaccine, inactivated 0.5 ml, Route: IM, Drug Form: INJ, Start date: 02/20/07 9:00:00 Inactive Kt 02/20/2007 [facility] Fentanyl 1 patch to skin Transdermal Active 25 MCG/HR Transdermal Ijeoma Marshall Albuterol Sulfate 3 ml as needed Inhalation Active 0.083 Inhalation every 6 hrs Ijeoma [facility] Tizanidine HCl 1 tablet as needed Orally Active 4 mg Orally twice a day (bid) Ijeoma [facility] Percocet 1 tablet as needed Orally Active 10-325 MG Orally every 6 hrs Ijeoma [facility] Gabapentin 1 tablet Orally Active 600 MG Orally Three times a day Ijeoma [facility] Seroquel 2 tablet at bedtime Orally Active 400 MG Orally once every night Ijeoma [facility] Xanax 1 tablet Orally Active 2 MG Orally Three times a day [facility] Trazodone HCl 1 tablet at bedtime as needed Orally Active 50 mg Orally Once a day [facility] Protonix 1 tablet Orally Active 40 MG Orally Once a day Ijeoma Enlewis Morales Quetiapine Fumarate TAKE TWO TABLETS BY MOUTH AT BEDTIME ONCE EVERY NIGHT FOR 15 DAYS NA Active 400MG [facility] Сергей Morales Trazodone HCl 1 tablet at bedtime as needed Orally Active 50 mg Orally Once a day [facility] Сергей Morales Gabapentin 1 tablet Orally Active 800 MG Orally Three times a day [facility] Сергей Morales Allergies, Adverse Reactions, Alerts Substance Category Reaction Severity Reaction type Status Date Reported Comments Source penicillin Adverse Reaction anaphylaxis Adverse Reaction Active 05/09/2016 Сергей Morales naproxen Assertion Drug allergy Active [facility] penicillins Assertion breathing trouble Drug allergy Active [facility] Stedman C Assertion Drug allergy Active [facility] Toradol Assertion Drug allergy Active [facility] traMADol Assertion Drug allergy Active [facility] Ultram Assertion Drug allergy Active [facility] Zofran Assertion Drug allergy Active [facility] Other Food Allergy Assertion coconut Drug allergy Active [facility] lamoTRIgine Assertion rash Drug allergy Active [facility] Immunizations Immunization Date Given Site Status Last Updated Comments Source pneumococcal 23-valent vaccine 04/02/2017 Left deltoid completed [facility] influenza virus vaccine, inactivated 04/01/2017 Right deltoid completed [facility] DEPO MEDROL 40 mg 03/14/2016 [facility] Rocephin 250 mg 03/14/2016 completed Сергей [facility] influenza virus vaccine, inactivated 02/20/2007 [facility] influenza virus vaccine, inactivated 02/20/2007 Right Deltoid completed [facility] Results Order Name Results Value Reference Range Date Interpretation Comments Source ED Abdomen/Pelvis IV contrast only CT ED Abdomen/Pelvis IV contrast only CT Exam: ED Abdomen/Pelvis IV contrast only CT Clinical Indication: Right lower quadrant abdominal pain with nausea; diarrhea with dark stools. Comparison: CT pelvis 11/01/[address] abdomen and pelvis 05/16/2013 TECHNIQUE: Sequential trans-axial images of the abdomen and pelvis were obtained with a multi-detector helical CT after administration of intravenous iodinated contrast. Coronal and sagittal reconstructions were obtained. 100 mL of intravenous omnipaque contrast material was used for the exam. Oral contrast was not administered for the exam. CT imaging performed at this location utilizes radiation dose optimization techniques which include one or more of the following: -Automated exposure control -Adjustment of the mA and/or kV according to patient size -Use of iterative reconstruction technique CT Radiation Dose DLP 1139.69 mGy-cm FINDINGS: VISUALIZED LUNG BASES: Mild left lower lobe and lingula subsegmental atelectasis and minimal right lower lobe dependent atelectasis. ABDOMINAL SOLID ORGANS: The liver, spleen, pancreas, adrenals and kidneys are unremarkable. Status post cholecystectomy. No significant extrahepatic or intrahepatic biliary dilatation. STOMACH AND BOWEL: The stomach is unremarkable. The small bowel loops are unremarkable without evidence of obstruction. Evidence of prior appendectomy. The colon is unremarkable without evidence of obstruction. PERITONEUM AND RETROPERITONEUM: No pneumoperitoneum or ascites. The retroperitoneal region appears unremarkable. LYMPH NODES: No abdominal, pelvic, or inguinal adenopathy. VASCULAR STRUCTURES: The abdominal aorta appears unremarkable. The inferior vena cava appears normal. The renal veins, mesenteric veins and portal vein appear unremarkable. BLADDER: The urinary bladder appears unremarkable. REPRODUCTIVE ORGANS: The prostate and seminal vesicles are unremarkable. OSSEOUS STRUCTURES: No acute osseous abnormality identified. SOFT TISSUE STRUCTURES: Unremarkable. IMPRESSION: 1. No acute abdominal or pelvic abnormalities. 2. Status post cholecystectomy and appendectomy. SL: [id number] 01/26/2018 - - Read by: Vikash Ortega MD Dictated Date/time: 01/26/18 09:16 Electronically Signed by: Vikash Ortega MD 01/26/18 09:21 FINAL REPORT [facility] ELECTROLYTES AGAP 12.2 meq/L 10.0 - 20.0 03/31/2017 [facility] ELECTROLYTES eGFR 97 mL/min/1.73m2 03/31/2017 Result Comment: The eGFR is calculated using the [...] from the National Kidney Disease Education Program (NKDEP) which additionally recommends that when the eGFR is used in patients with extremes of body mass index for purposes of drug dosing, the eGFR should be multiplied by the estimated BMI. [facility] ELECTROLYTES BUN 12 mg/dL 7 - 22 03/31/2017 [facility] ELECTROLYTES Glucose Lvl 120 mg/dL 70 - 99 03/31/2017 [facility] ELECTROLYTES Calcium Lvl 9.0 mg/dL 8.5 - 10.5 03/31/2017 [facility] ELECTROLYTES Chloride Lvl 99 meq/L 95 - 109 03/31/2017 [facility] ELECTROLYTES CO2 30 meq/L 24 - 32 03/31/2017 [facility] ELECTROLYTES Potassium Lvl 4.2 meq/L 3.5 - 5.1 03/31/2017 [facility] ELECTROLYTES Sodium Lvl 137 meq/L 135 - 145 03/31/2017 [facility] ELECTROLYTES Creatinine Lvl 0.96 mg/dL 0.50 - 1.40 03/31/2017 [facility] HEMATOLOGY Platelet 179 K/CMM 133 - 450 03/31/2017 [facility] HEMATOLOGY RDW 16.9 % 11.5 - 14.5 03/31/2017 [facility] HEMATOLOGY MPV 9.8 fL 7.4 - 10.4 03/31/2017 [facility] MCV 84.1 fL 80.0 - 94.0 03/31/2017 [facility] MCHC 33.3 g/dL 32.0 - 36.0 03/31/2017 [facility] HEMATOLOGY WBC 10.9 K/CMM 3.7 - 10.4 03/31/2017 [facility] HEMATOLOGY RBC 4.95 M/CMM 4.70 - 6.10 03/31/2017 [facility] HEMATOLOGY Hct 41.6 % 42.0 - 54.0 03/31/2017 [facility] MCH 28.0 pg 27.0 - 31.0 03/31/2017 [facility] Hgb 13.9 g/dL 14.0 - 18.0 03/31/2017 [facility] HEMATOLOGY Monocytes # 0.3 K/CMM 0.0 - 0.8 03/31/2017 [facility] HEMATOLOGY Lymphocytes # 0.6 K/CMM 1.0 - 5.5 03/31/2017 [facility] HEMATOLOGY Monocytes 2.6 % 2.0 - 12.0 03/31/2017 [facility] HEMATOLOGY Eosinophils 0.6 % 0.0 - 4.0 03/31/2017 [facility] Lymphocytes 6.0 % 20.0 - 40.0 03/31/2017 [facility] HEMATOLOGY Eosinophils # 0.1 K/CMM 0.0 - 0.5 03/31/2017 [facility] HEMATOLOGY Basophils 0.1 % 0.0 - 1.0 03/31/2017 [facility] HEMATOLOGY Segs-Bands # 9.8 K/CMM 1.5 - 8.1 03/31/2017 [facility] HEMATOLOGY Segs 90.7 % 45.0 - 75.0 03/31/2017 [facility] Chest wo contrast CT Chest wo contrast CT Patient Name: ZOHRA JOSEPH : 1975; Age: 41 years y/o Male MR: [id number] Study: Chest wo contrast CT 03/30/2017 7:38 PM [employer] Clinical Indication: CT dose DLP 337.38 mGy-cm - possible pneumonia/ Shortness of Breath; Comparison: 09/26/2014 TECHNIQUE: Sequential trans-axial images were obtained thru the chest and upper abdomen without the administration of intravenous contrast. Coronal and sagittal reconstructions were obtained. FINDINGS: AIRWAY: The tracheobronchial tree is unremarkable. LUNG PARENCHYMA AND PLEURA: Emphysematous changes are seen about the upper lungs bilaterally with small bullae about the lung apices bilaterally. There is patchy areas of groundglass opacity scattered about the right upper lobe, left upper lobe and right lower lobe representing nonspecific alveolitis bilaterally. There is a small amount of pleural thickening seen to the posterior left mid lung and left lung base. Small amount of consolidation along the posterior aspect of the left lower lobe felt to represent atelectatic change. No other parenchymal lung abnormality identified bilaterally. No pleural effusion bilaterally. No pneumothorax bilaterally. MEDIASTINUM: Small nonspecific pretracheal, anterior mediastinal and subcarinal nodes are similar to prior study. No mediastinal, hilar or axillary adenopathy. No pericardial effusion. No evidence for thoracic aortic aneurysm. OSSEOUS STRUCTURES: There are no definite significant osseous abnormalities seen. VISUALIZED NON-CONTRAST UPPER ABDOMEN: Patient is status post cholecystectomy. Views of the upper abdomen are otherwise unremarkable. IMPRESSION: 1. Scattered patchy groundglass opacity about the upper lobes bilaterally and right lower lobe representing nonspecific bilateral alveolitis. 2. Small amount of pleural thickening to the posterior left mid lung and left lung base with atelectasis in the posterior left lower lobe as above. 3. Status post cholecystectomy. 4. Emphysematous changes. SL: LAWSON 03/30/2017 - - Read by: Bladimir Zhao MD Dictated Date/time: 03/30/17 21:21 Electronically Signed by: Bladimir Zhao MD 03/30/17 21:30 FINAL REPORT [facility] CARDIAC ENZYMES Troponin-I null 0.00 - 0.40 03/30/2017 [facility] CARDIAC ENZYMES BNP 34 pg/mL <=100 pg/mL 03/30/2017 [facility] CARDIAC ENZYMES Total CK 68 unit/L 12 - 191 03/30/2017 [facility] CARDIAC ENZYMES CK MB 1.0 ng/mL 0.5 - 3.6 03/30/2017 [facility] CARDIAC ENZYMES CK MB Index 1.5 0.0 - 2.5 03/30/2017 [facility] CHEM PANEL Magnesium Lvl 2.3 mg/dL 1.8 - 2.4 03/30/2017 [facility] CHEM PANEL eGFR 101 mL/min/1.73m2 03/30/2017 Result Comment: The eGFR is calculated using the [...] from the National Kidney Disease Education Program (NKDEP) which additionally recommends that when the eGFR is used in patients with extremes of body mass index for purposes of drug dosing, the eGFR should be multiplied by the estimated BMI. [facility] CHEM PANEL Chloride Lvl 99 meq/L 95 - 109 03/30/2017 [facility] CHEM PANEL A/G Ratio 1.0 0.7 - 1.6 03/30/2017 [facility] CHEM PANEL Globulin 3.8 g/dL 2.7 - 4.2 03/30/2017 [facility] CHEM PANEL CO2 33 meq/L 24 - 32 03/30/2017 [facility] CHEM PANEL Potassium Lvl 3.9 meq/L 3.5 - 5.1 03/30/2017 [facility] CHEM PANEL Total Protein 7.5 g/dL 6.4 - 8.4 03/30/2017 [facility] CHEM PANEL Albumin Lvl 3.7 g/dL 3.5 - 5.0 03/30/2017 [facility] CHEM PANEL Calcium Lvl 8.7 mg/dL 8.5 - 10.5 03/30/2017 [facility] CHEM PANEL Sodium Lvl 139 meq/L 135 - 145 03/30/2017 [facility] CHEM PANEL Bili Total 0.4 mg/dL 0.2 - 1.3 03/30/2017 [facility] CHEM PANEL B/C Ratio 11 6 - 25 03/30/2017 [facility] CHEM PANEL AGAP 10.9 meq/L 10.0 - 20.0 03/30/2017 [facility] CHEM PANEL AST 12 unit/L 0 - 37 03/30/2017 [facility] CHEM PANEL ALT 13 unit/L 0 - 65 03/30/2017 [facility] CHEM PANEL Alk Phos 115 unit/L 39 - 136 03/30/2017 [facility] CHEM PANEL BUN 10 mg/dL 7 - 22 03/30/2017 [facility] CHEM PANEL Creatinine Lvl 0.92 mg/dL 0.50 - 1.40 03/30/2017 [facility] CHEM PANEL Glucose Lvl 96 mg/dL 70 - 99 03/30/2017 [facility] CHEM PANEL Lactic Acid Lvl 0.6 mMol/L 0.5 - 2.2 03/30/2017 [facility] HEMATOLOGY INR 0.81 0.85 - 1.17 03/30/2017 [facility] HEMATOLOGY PT 11.2 s 12.0 - 14.7 03/30/2017 [facility] HEMATOLOGY RDW 17.0 % 11.5 - 14.5 03/30/2017 [facility] HEMATOLOGY Platelet 192 K/CMM 133 - 450 03/30/2017 [facility] MCHC 33.3 g/dL 32.0 - 36.0 03/30/2017 [facility] MCH 28.0 pg 27.0 - 31.0 03/30/2017 [facility] MCV 84.1 fL 80.0 - 94.0 03/30/2017 [facility] HEMATOLOGY MPV 9.8 fL 7.4 - 10.4 03/30/2017 [facility] HEMATOLOGY Hct 42.4 % 42.0 - 54.0 03/30/2017 [facility] Hgb 14.1 g/dL 14.0 - 18.0 03/30/2017 [facility] HEMATOLOGY RBC 5.04 M/CMM 4.70 - 6.10 03/30/2017 [facility] HEMATOLOGY WBC 12.3 K/CMM 3.7 - 10.4 03/30/2017 [facility] HEMATOLOGY Eosinophils # 0.3 K/CMM 0.0 - 0.5 03/30/2017 [facility] HEMATOLOGY Monocytes # 1.0 K/CMM 0.0 - 0.8 03/30/2017 [facility] HEMATOLOGY Lymphocytes # 2.1 K/CMM 1.0 - 5.5 03/30/2017 [facility] HEMATOLOGY Segs-Bands # 8.8 K/CMM 1.5 - 8.1 03/30/2017 [facility] HEMATOLOGY Basophils 0.4 % 0.0 - 1.0 03/30/2017 [facility] HEMATOLOGY Eosinophils 2.6 % 0.0 - 4.0 03/30/2017 [facility] HEMATOLOGY Segs 71.6 % 45.0 - 75.0 03/30/2017 [facility] Monocytes 8.0 % 2.0 - 12.0 03/30/2017 [facility] Lymphocytes 17.4 % 20.0 - 40.0 03/30/2017 [facility] VIRAL - SEROLOGY Influ A Negative (03/30/17 10:35 AM) Negative 03/30/2017 [facility] VIRAL - SEROLOGY Influ B Negative (03/30/17 10:35 AM) Negative 03/30/2017 [facility] Chest 2 views DX Chest 2 views DX Chest 2 views DX 03/30/2017 10:19 AM [employer] Ordering Physician: Loi Dumont MD CLINICAL HISTORY: - cough, congestion; shortness of breath; history pneumonia TECHNIQUE: PA and lateral upright views of the chest were obtained. COMPARISON: August 2014 FINDINGS: Lungs are clear. No pleural effusion or pneumothorax is present. Cardiomediastinal silhouette is normal. Bones are normal. IMPRESSION: No acute abnormality of the chest. SL: [id number] 03/30/2017 - - Read by: Mica Bernard MD Dictated Date/time: 03/30/17 10:33 Electronically Signed by: Mica Bernard MD 03/30/17 10:35 FINAL REPORT [facility] Basophils # 0.1 K/CMM 0.0 - 0.2 12/11/2016 [facility] HEMATOLOGY Lymphocytes 28.6 % 20.0 - 40.0 12/11/2016 [facility] HEMATOLOGY Segs 60.6 % 45.0 - 75.0 12/11/2016 [facility] HEMATOLOGY Monocytes 6.5 % 2.0 - 12.0 12/11/2016 [facility] HEMATOLOGY Segs-Bands # 4.5 K/CMM 1.5 - 8.1 12/11/2016 [facility] HEMATOLOGY Basophils 0.8 % 0.0 - 1.0 12/11/2016 [facility] HEMATOLOGY Lymphocytes # 2.1 K/CMM 1.0 - 5.5 12/11/2016 [facility] HEMATOLOGY Eosinophils 3.5 % 0.0 - 4.0 12/11/2016 [facility] HEMATOLOGY Eosinophils # 0.3 K/CMM 0.0 - 0.5 12/11/2016 [facility] HEMATOLOGY Monocytes # 0.5 K/CMM 0.0 - 0.8 12/11/2016 [facility] MPV 9.6 fL 7.4 - 10.4 12/11/2016 [facility] Platelet 208 K/CMM 133 - 450 12/11/2016 [facility] Hct 41.5 % 42.0 - 54.0 12/11/2016 [facility] Hgb 13.7 g/dL 14.0 - 18.0 12/11/2016 [facility] RBC 4.87 M/CMM 4.70 - 6.10 12/11/2016 [facility] WBC 7.5 K/CMM 3.7 - 10.4 12/11/2016 [facility] MCH 28.1 pg 27.0 - 31.0 12/11/2016 [facility] MCV 85.1 fL 80.0 - 94.0 12/11/2016 [facility] RDW 17.2 % 11.5 - 14.5 12/11/2016 [facility] MCHC 33.0 g/dL 32.0 - 36.0 12/11/2016 [facility] RBC 5.41 M/CMM 4.70 - 6.10 11/14/2016 [facility] MCV 84.5 fL 80.0 - 94.0 11/14/2016 [facility] Hgb 15.2 g/dL 14.0 - 18.0 11/14/2016 [facility] WBC 9.9 K/CMM 3.7 - 10.4 11/14/2016 [facility] HEMATOLOGY Hct 45.7 % 42.0 - 54.0 11/14/2016 [facility] RDW 16.9 % 11.5 - 14.5 11/14/2016 [facility] HEMATOLOGY Platelet 214 K/CMM 133 - 450 11/14/2016 [facility] MCHC 33.3 g/dL 32.0 - 36.0 11/14/2016 [facility] MPV 10.0 fL 7.4 - 10.4 11/14/2016 [facility] MCH 28.1 pg 27.0 - 31.0 11/14/2016 [facility] HEMATOLOGY Monocytes 6.2 % 2.0 - 12.0 11/14/2016 [facility] HEMATOLOGY Eosinophils 1.9 % 0.0 - 4.0 11/14/2016 [facility] Basophils 1.5 % 0.0 - 1.0 11/14/2016 [facility] HEMATOLOGY Segs-Bands # 6.7 K/CMM 1.5 - 8.1 11/14/2016 [facility] Lymphocytes # 2.2 K/CMM 1.0 - 5.5 11/14/2016 [facility] Monocytes # 0.6 K/CMM 0.0 - 0.8 11/14/2016 [facility] Eosinophils # 0.2 K/CMM 0.0 - 0.5 11/14/2016 [facility] Basophils # 0.1 K/CMM 0.0 - 0.2 11/14/2016 [facility] Segs 68.0 % 45.0 - 75.0 11/14/2016 [facility] Lymphocytes 22.4 % 20.0 - 40.0 11/14/2016 [facility] Renal pyelogram retrograde DX Renal pyelogram retrograde DX Bilateral retrograde pyelogram: Spot images from Cystoscopy are submitted. Bilateral ureteroscopy is demonstrated with the scope demonstrated in the both collecting systems. Contrast injection shows moderate dilatation of the renal pelvis bilaterally. Final images show bilateral ureteral stents in good position. SL DLAWRENCE-PC 05/23/2016 - - Read by: Dex Wiggins MD Dictated Date/time: 05/23/16 17:51 Electronically Signed by: Dex Wiggins MD 05/23/16 17:53 FINAL REPORT [facility] CHEM PANEL Calcium Lvl 9.7 mg/dL 8.5 - 10.5 05/21/2016 [facility] CHEM PANEL Potassium Lvl 4.0 meq/L 3.5 - 5.1 05/21/2016 [facility] CHEM PANEL Chloride Lvl 101 meq/L 95 - 109 05/21/2016 [facility] CHEM PANEL CO2 29 meq/L 24 - 32 05/21/2016 [facility] CHEM PANEL eGFR 92 mL/min/1.73m2 05/21/2016 Result Comment: The eGFR is calculated using the [...] from the National Kidney Disease Education Program (NKDEP) which additionally recommends that when the eGFR is used in patients with extremes of body mass index for purposes of drug dosing, the eGFR should be multiplied by the estimated BMI. [facility] CHEM PANEL BUN 10 mg/dL 7 - 22 05/21/2016 [facility] CHEM PANEL Creatinine Lvl 1.00 mg/dL 0.50 - 1.40 05/21/2016 [facility] CHEM PANEL Sodium Lvl 137 meq/L 135 - 145 05/21/2016 [facility] CHEM PANEL Glucose Lvl 81 mg/dL 70 - 99 05/21/2016 [facility] CHEM PANEL AGAP 11.0 meq/L 10.0 - 20.0 05/21/2016 [facility] HEMATOLOGY Segs 72.5 % 45.0 - 75.0 05/21/2016 [facility] HEMATOLOGY Lymphocytes 20.7 % 20.0 - 40.0 05/21/2016 [facility] HEMATOLOGY Monocytes 4.8 % 2.0 - 12.0 05/21/2016 [facility] HEMATOLOGY Eosinophils 1.2 % 0.0 - 4.0 05/21/2016 [facility] HEMATOLOGY Monocytes # 0.5 K/CMM 0.0 - 0.8 05/21/2016 [facility] HEMATOLOGY Lymphocytes # 2.2 K/CMM 1.0 - 5.5 05/21/2016 [facility] HEMATOLOGY Eosinophils # 0.1 K/CMM 0.0 - 0.5 05/21/2016 [facility] HEMATOLOGY Segs-Bands # 7.7 K/CMM 1.5 - 8.1 05/21/2016 [facility] HEMATOLOGY Basophils 0.8 % 0.0 - 1.0 05/21/2016 [facility] HEMATOLOGY Basophils # 0.1 K/CMM 0.0 - 0.2 05/21/2016 [facility] HEMATOLOGY MCV 85.6 fL 80.0 - 94.0 05/21/2016 [facility] HEMATOLOGY Hct 46.7 % 42.0 - 54.0 05/21/2016 [facility] MCH 28.3 pg 27.0 - 31.0 05/21/2016 [facility] HEMATOLOGY RDW 17.5 % 11.5 - 14.5 05/21/2016 [facility] MCHC 33.1 g/dL 32.0 - 36.0 05/21/2016 [facility] HEMATOLOGY MPV 9.6 fL 7.4 - 10.4 05/21/2016 [facility] HEMATOLOGY Platelet 292 K/CMM 133 - 450 05/21/2016 [facility] HEMATOLOGY Hgb 15.4 g/dL 14.0 - 18.0 05/21/2016 [facility] RBC 5.45 M/CMM 4.70 - 6.10 05/21/2016 [facility] WBC 10.6 K/CMM 3.7 - 10.4 05/21/2016 [facility] MCH 28.5 pg 27.0 - 31.0 11/04/2014 [facility] MCV 86.0 fL 80.0 - 94.0 11/04/2014 [facility] Hct 34.0 % 42.0 - 54.0 11/04/2014 [facility] MCHC 33.1 g/dL 32.0 - 36.0 11/04/2014 [facility] WBC 8.4 K/CMM 3.7 - 10.4 11/04/2014 [facility] RDW 15.1 % 11.5 - 14.5 11/04/2014 [facility] Platelet 145 K/CMM 133 - 450 11/04/2014 [facility] MPV 10.0 fL 7.4 - 10.4 11/04/2014 [facility] RBC 3.95 M/CMM 4.70 - 6.10 11/04/2014 [facility] Hgb 11.3 g/dL 14.0 - 18.0 11/04/2014 [facility] Basophils # 0.1 K/CMM 0.0 - 0.2 11/04/2014 [facility] HEMATOLOGY Basophils 0.7 % 0.0 - 1.0 11/04/2014 [facility] Lymphocytes # 1.9 K/CMM 1.0 - 5.5 11/04/2014 [facility] HEMATOLOGY Segs-Bands # 5.1 K/CMM 1.5 - 8.1 11/04/2014 [facility] HEMATOLOGY Eosinophils # 0.5 K/CMM 0.0 - 0.5 11/04/2014 [facility] HEMATOLOGY Monocytes # 0.8 K/CMM 0.0 - 0.8 11/04/2014 [facility] HEMATOLOGY Monocytes 9.7 % 2.0 - 12.0 11/04/2014 [facility] HEMATOLOGY Eosinophils 5.9 % 0.0 - 4.0 11/04/2014 [facility] HEMATOLOGY Lymphocytes 22.6 % 20.0 - 40.0 11/04/2014 [facility] HEMATOLOGY Segs 61.1 % 45.0 - 75.0 11/04/2014 [facility] ELECTROLYTES Sodium Lvl 139 meq/L 135 - 145 11/03/2014 [facility] ELECTROLYTES Potassium Lvl 3.6 meq/L 3.5 - 5.1 11/03/2014 [facility] ELECTROLYTES Chloride Lvl 104 meq/L 95 - 109 11/03/2014 [facility] ELECTROLYTES eGFR 106 mL/min/1.73m2 11/03/2014 1Result Comment: The eGFR is calculated using [...] from the National Kidney Disease Education Program (NKDEP) which additionally recommends that when the eGFR is used in patients with extremes of body mass index for purposes of drug dosing, the eGFR should be multiplied by the estimated BMI. [facility] ELECTROLYTES Calcium Lvl 8.8 mg/dL 8.5 - 10.5 11/03/2014 [facility] ELECTROLYTES CO2 28 meq/L 24 - 32 11/03/2014 [facility] ELECTROLYTES BUN 8 mg/dL 7 - 22 11/03/2014 [facility] ELECTROLYTES Creatinine Lvl 0.9 mg/dL 0.5 - 1.4 11/03/2014 [facility] ELECTROLYTES Glucose Lvl 98 mg/dL 70 - 99 11/03/2014 3Interpretive Data: Adult reference range values reflect the clinical guidelines of the [place] [employer]. [facility] ELECTROLYTES AGAP 10.6 meq/L 10.0 - 20.0 11/03/2014 [facility] Hct 36.0 % 42.0 - 54.0 11/03/2014 [facility] Hgb 12.0 g/dL 14.0 - 18.0 11/03/2014 [facility] INR 1.02 0.85 - 1.17 11/02/2014 5Interpretive Data: RECOMMENDED RANGES FOR PROTIME INR: 2.0-3.0 for most medical and surgical thromboembolic states. 2.5-3.5 for artificial heart valves and recurrent embolism. INR SHOULD BE USED ONLY FOR PATIENTS ON STABLE ANTICOAGULANT THERAPY. [facility] PT 13.4 s 12.0 - 14.7 11/02/2014 [facility] MCH 28.8 pg 27.0 - 31.0 11/02/2014 [facility] MCHC 33.5 g/dL 32.0 - 36.0 11/02/2014 [facility] MCV 86.1 fL 80.0 - 94.0 11/02/2014 [facility] RDW 15.1 % 11.5 - 14.5 11/02/2014 [facility] Platelet 160 K/CMM 133 - 450 11/02/2014 [facility] MPV 10.2 fL 7.4 - 10.4 11/02/2014 [facility] Hct 36.7 % 42.0 - 54.0 11/02/2014 [facility] Hgb 12.3 g/dL 14.0 - 18.0 11/02/2014 [facility] RBC 4.26 M/CMM 4.70 - 6.10 11/02/2014 [facility] WBC 6.6 K/CMM 3.7 - 10.4 11/02/2014 [facility] Monocytes 8.7 % 2.0 - 12.0 11/02/2014 [facility] Segs 50.5 % 45.0 - 75.0 11/02/2014 [facility] Lymphocytes 32.9 % 20.0 - 40.0 11/02/2014 [facility] Eosinophils 7.3 % 0.0 - 4.0 11/02/2014 [facility] Basophils 0.6 % 0.0 - 1.0 11/02/2014 [facility] Segs-Bands # 3.3 K/CMM 1.5 - 8.1 11/02/2014 [facility] Lymphocytes # 2.2 K/CMM 1.0 - 5.5 11/02/2014 [facility] HEMATOLOGY Monocytes # 0.6 K/CMM 0.0 - 0.8 11/02/2014 [facility] HEMATOLOGY Eosinophils # 0.5 K/CMM 0.0 - 0.5 11/02/2014 [facility] LIPIDS VLDL 35 11/02/2014 [facility] LIPIDS LDL (Calculated) 121 mg/dL <=99 mg/dL 11/02/2014 [facility] LIPIDS CHD Risk 7.24 4.00 - 7.30 11/02/2014 [facility] LIPIDS Trig 175 mg/dL <=149 mg/dL 11/02/2014 [facility] LIPIDS Chol 181 mg/dL <=199 mg/dL 11/02/2014 [facility] LIPIDS HDL 25 mg/dL >=61 mg/dL 11/02/2014 [facility] THYROID PANEL TSH 11.200 uIU/mL 0.360 - 3.740 11/02/2014 [facility] THYROID PANEL T3 Uptake 33 % 31 - 39 11/02/2014 [facility] THYROID PANEL T4 6.1 ug/dl 4.7 - 13.3 11/02/2014 [facility] THYROID PANEL FTI 2.0 11/02/2014 [facility] URINE AND STOOL UA Sq Epi None Seen 11/02/2014 [facility] URINE AND STOOL UA Spec Grav >=1.050 *ABN* (11/01/14 11:35 PM) <=1.030 11/02/2014 [facility] URINE AND STOOL UA Urobilinogen <=1.0 mg/dL 0.1 - 1.0 11/02/2014 [facility] URINE AND STOOL UA Color Ltyellow 11/02/2014 [facility] URINE AND STOOL UA RBC 1 /HPF 0 - 2 11/02/2014 [facility] URINE AND STOOL UA WBC 1 /HPF 0 - 5 11/02/2014 [facility] URINE AND STOOL UA Ketones Negative mg/dL Negative mg/dL 11/02/2014 [facility] URINE AND STOOL UA Nitrite Negative (11/01/14 11:35 PM) Negative 11/02/2014 [facility] URINE AND STOOL UA Leuk Est Negative (11/01/14 11:35 PM) Negative 11/02/2014 [facility] URINE AND STOOL UA Blood Small *ABN* (11/01/14 11:35 PM) Negative 11/02/2014 [facility] URINE AND STOOL UA Bili Negative *NA* (7/6/15 11:35 PM) Negative 11/02/2014 [facility] URINE AND STOOL UA Protein Negative mg/dL Negative mg/dL 11/02/2014 [facility] URINE AND STOOL UA Glucose Negative mg/dL Negative mg/dL 11/02/2014 [facility] URINE AND STOOL UA pH 6.0 5.0 - 8.0 11/02/2014 [facility] URINE AND STOOL UA Turbidity Clear (11/01/14 11:35 PM) Clear 11/02/2014 [facility] CHEM PANEL Phosphorus 3.6 mg/dL 2.5 - 4.5 11/02/2014 [facility] CHEM PANEL Magnesium Lvl 1.9 mg/dL 1.8 - 2.4 11/02/2014 [facility] Pelvis w IV contrast CT Pelvis w IV contrast CT EXAMINATION: CT of the pelvis with contrast HISTORY: Abdominal pain, acute COMPARISON: CT of the abdomen and pelvis from 05/16/2013. DLP: 906.94 TECHNIQUE: Multiple transaxial images through the pelvis were acquired following administration of intravenous contrast material. Oral contrast was administered. Multiplanar reformatted images were performed. FINDINGS: The lung bases are clear bilaterally. The bladder and prostate are unremarkable. Postoperative changes of appendectomy are seen. No intraperitoneal free air or free fluid is seen. Mildly prominent bilateral inguinal lymph nodes are seen with largest measuring 2.4 cm in greatest axial dimension on the right. The superficial soft tissues are unremarkable. Specifically, no perinephric fluid collections are seen. Osseous structures are unremarkable. IMPRESSION: No acute abnormality of the pelvis and no evidence of perirectal abscess. SL: 16 11/01/2014 - - Read by: Santosh Oviedo MD Dictated Date/time: 11/01/14 20:21 Electronically Signed by: Santosh Oviedo MD 11/01/14 20:23 FINAL REPORT [facility] BLOOD BANK RESULTS ABO/Rh B POS 11/01/2014 [facility] BLOOD BANK RESULTS Antibody Scrn Negative (11/01/14 7:32 AM) 11/01/2014 [facility] ELECTROLYTES Sodium Lvl 140 meq/L 135 - 145 11/01/2014 [facility] ELECTROLYTES Potassium Lvl 3.4 meq/L 3.5 - 5.1 11/01/2014 [facility] ELECTROLYTES Chloride Lvl 106 meq/L 95 - 109 11/01/2014 [facility] ELECTROLYTES eGFR 93 mL/min/1.73m2 11/01/2014 2Result Comment: The eGFR is calculated using the [...] from the National Kidney Disease Education Program (NKDEP) which additionally recommends that when the eGFR is used in patients with extremes of body mass index for purposes of drug dosing, the eGFR should be multiplied by the estimated BMI. [facility] ELECTROLYTES AST 16 unit/L 0 - 37 11/01/2014 [facility] ELECTROLYTES ALT 16 unit/L 0 - 65 11/01/2014 [facility] ELECTROLYTES Alk Phos 111 unit/L 39 - 136 11/01/2014 [facility] ELECTROLYTES Bili Total 0.2 mg/dL 0.2 - 1.3 11/01/2014 [facility] ELECTROLYTES Albumin Lvl 3.5 g/dL 3.5 - 5.0 11/01/2014 [facility] ELECTROLYTES Total Protein 7.2 g/dL 6.4 - 8.4 11/01/2014 [facility] ELECTROLYTES Glucose Lvl 90 mg/dL 70 - 99 11/01/2014 4Interpretive Data: Adult reference range values reflect the clinical guidelines of the [place] [employer]. [facility] ELECTROLYTES Creatinine Lvl 1.0 mg/dL 0.5 - 1.4 11/01/2014 [facility] ELECTROLYTES BUN 12 mg/dL 7 - 22 11/01/2014 [facility] ELECTROLYTES Calcium Lvl 9.1 mg/dL 8.5 - 10.5 11/01/2014 [facility] ELECTROLYTES CO2 26 meq/L 24 - 32 11/01/2014 [facility] ELECTROLYTES Globulin 3.7 g/dL 2.0 - 4.0 11/01/2014 [facility] ELECTROLYTES B/C Ratio 12 6 - 25 11/01/2014 [facility] ELECTROLYTES AGAP 11.4 meq/L 10.0 - 20.0 11/01/2014 [facility] ELECTROLYTES A/G Ratio 0.9 0.7 - 1.6 11/01/2014 [facility] HEMATOLOGY Segs-Bands # 6.7 K/CMM 1.5 - 8.1 11/01/2014 [facility] HEMATOLOGY Monocytes # 0.9 K/CMM 0.0 - 0.8 11/01/2014 [facility] HEMATOLOGY Lymphocytes # 1.8 K/CMM 1.0 - 5.5 11/01/2014 [facility] HEMATOLOGY Eosinophils # 0.6 K/CMM 0.0 - 0.5 11/01/2014 [facility] Basophils # 0.1 K/CMM 0.0 - 0.2 11/01/2014 [facility] HEMATOLOGY Segs 66.2 % 45.0 - 75.0 11/01/2014 [facility] Eosinophils 6.4 % 0.0 - 4.0 11/01/2014 [facility] Basophils 0.7 % 0.0 - 1.0 11/01/2014 [facility] Lymphocytes 18.2 % 20.0 - 40.0 11/01/2014 [facility] Monocytes 8.5 % 2.0 - 12.0 11/01/2014 [facility] RBC 4.36 M/CMM 4.70 - 6.10 11/01/2014 [facility] MCV 85.8 fL 80.0 - 94.0 11/01/2014 [facility] MCHC 33.7 g/dL 32.0 - 36.0 11/01/2014 [facility] MCH 28.9 pg 27.0 - 31.0 11/01/2014 [facility] Platelet 189 K/CMM 133 - 450 11/01/2014 [facility] RDW 15.5 % 11.5 - 14.5 11/01/2014 [facility] MPV 10.6 fL 7.4 - 10.4 11/01/2014 [facility] WBC 10.0 K/CMM 3.7 - 10.4 11/01/2014 [facility] PTT 31.8 s 22.9 - 35.8 11/01/2014 6Interpretive Data: Heparin Therapeutic Range: 57 - 92 Seconds [facility] BLOOD BANK RESULTS ABO/Rh B POS 10/22/2014 [facility] BLOOD BANK RESULTS Antibody Scrn Negative (10/22/14 4:05 AM) 10/22/2014 [facility] CHEM PANEL eGFR 83 mL/min/1.73m2 10/22/2014 1Result Comment: The eGFR is calculated using [...] from the National Kidney Disease Education Program (NKDEP) which additionally recommends that when the eGFR is used in patients with extremes of body mass index for purposes of drug dosing, the eGFR should be multiplied by the estimated BMI. [facility] CHEM PANEL Calcium Lvl 9.2 mg/dL 8.5 - 10.5 10/22/2014 [facility] CHEM PANEL Potassium Lvl 3.7 meq/L 3.5 - 5.1 10/22/2014 [facility] CHEM PANEL Creatinine Lvl 1.1 mg/dL 0.5 - 1.4 10/22/2014 [facility] CHEM PANEL Chloride Lvl 107 meq/L 95 - 109 10/22/2014 [facility] CHEM PANEL Sodium Lvl 140 meq/L 135 - 145 10/22/2014 [facility] CHEM PANEL Bili Total null 0.2 - 1.3 10/22/2014 [facility] CHEM PANEL CO2 27 meq/L 24 - 32 10/22/2014 [facility] CHEM PANEL Albumin Lvl 3.5 g/dL 3.5 - 5.0 10/22/2014 [facility] CHEM PANEL Total Protein 7.3 g/dL 6.4 - 8.4 10/22/2014 [facility] CHEM PANEL Alk Phos 118 unit/L 39 - 136 10/22/2014 [facility] CHEM PANEL AST 13 unit/L 0 - 37 10/22/2014 [facility] CHEM PANEL ALT 17 unit/L 0 - 65 10/22/2014 [facility] CHEM PANEL BUN 10 mg/dL 7 - 22 10/22/2014 [facility] CHEM PANEL Glucose Lvl 95 mg/dL 70 - 99 10/22/2014 2Interpretive Data: Adult reference range values reflect the clinical guidelines of the [place] [employer]. [facility] CHEM PANEL AGAP 9.7 meq/L 10.0 - 20.0 10/22/2014 [facility] CHEM PANEL Globulin 3.8 g/dL 2.0 - 4.0 10/22/2014 [facility] CHEM PANEL B/C Ratio 9 6 - 25 10/22/2014 [facility] CHEM PANEL A/G Ratio 0.9 0.7 - 1.6 10/22/2014 [facility] HEMATOLOGY Lymphocytes # 2.7 K/CMM 1.0 - 5.5 10/22/2014 [facility] HEMATOLOGY Monocytes # 0.6 K/CMM 0.0 - 0.8 10/22/2014 [facility] HEMATOLOGY Eosinophils # 0.8 K/CMM 0.0 - 0.5 10/22/2014 [facility] HEMATOLOGY Basophils # 0.1 K/CMM 0.0 - 0.2 10/22/2014 [facility] HEMATOLOGY Segs 68.9 % 45.0 - 75.0 10/22/2014 [facility] Lymphocytes 20.4 % 20.0 - 40.0 10/22/2014 [facility] Monocytes 4.3 % 2.0 - 12.0 10/22/2014 [facility] Eosinophils 5.8 % 0.0 - 4.0 10/22/2014 [facility] Basophils 0.6 % 0.0 - 1.0 10/22/2014 [facility] Segs-Bands # 9.2 K/CMM 1.5 - 8.1 10/22/2014 [facility] PTT 32.6 s 22.9 - 35.8 10/22/2014 4Interpretive Data: Heparin Therapeutic Range: 57 - 92 Seconds [facility] PT 13.2 s 12.0 - 14.7 10/22/2014 [facility] INR 1.00 0.85 - 1.17 10/22/2014 3Interpretive Data: RECOMMENDED RANGES FOR PROTIME INR: 2.0-3.0 for most medical and surgical thromboembolic states. 2.5-3.5 for artificial heart valves and recurrent embolism. INR SHOULD BE USED ONLY FOR PATIENTS ON STABLE ANTICOAGULANT THERAPY. [facility] MPV 9.2 fL 7.4 - 10.4 10/22/2014 [facility] Hct 38.1 % 42.0 - 54.0 10/22/2014 [facility] Hgb 12.8 g/dL 14.0 - 18.0 10/22/2014 [facility] MCV 86.5 fL 80.0 - 94.0 10/22/2014 [facility] MCH 29.0 pg 27.0 - 31.0 10/22/2014 [facility] RDW 15.8 % 11.5 - 14.5 10/22/2014 [facility] HEMATOLOGY Platelet 266 K/CMM 133 - 450 10/22/2014 [facility] HEMATOLOGY MCHC 33.5 g/dL 32.0 - 36.0 10/22/2014 [facility] HEMATOLOGY RBC 4.40 M/CMM 4.70 - 6.10 10/22/2014 [facility] WBC 13.4 K/CMM 3.7 - 10.4 10/22/2014 [facility] ELECTROLYTES AGAP 9.3 meq/L 10.0 - 20.0 09/27/2014 [facility] ELECTROLYTES eGFR 93 mL/min/1.73m2 09/27/2014 1Result Comment: The eGFR is calculated using [...] from the National Kidney Disease Education Program (NKDEP) which additionally recommends that when the eGFR is used in patients with extremes of body mass index for purposes of drug dosing, the eGFR should be multiplied by the estimated BMI. [facility] ELECTROLYTES CO2 30 meq/L 24 - 32 09/27/2014 [facility] ELECTROLYTES Creatinine Lvl 1.0 mg/dL 0.5 - 1.4 09/27/2014 [facility] ELECTROLYTES BUN 13 mg/dL 7 - 22 09/27/2014 [facility] ELECTROLYTES Glucose Lvl 83 mg/dL 70 - 99 09/27/2014 3Interpretive Data: Adult reference range values reflect the clinical guidelines of the [place] [employer]. [facility] ELECTROLYTES Calcium Lvl 9.5 mg/dL 8.5 - 10.5 09/27/2014 [facility] ELECTROLYTES Sodium Lvl 140 meq/L 135 - 145 09/27/2014 [facility] ELECTROLYTES Chloride Lvl 105 meq/L 95 - 109 09/27/2014 [facility] ELECTROLYTES Potassium Lvl 4.3 meq/L 3.5 - 5.1 09/27/2014 [facility] HEMATOLOGY Segs-Bands # 5.5 K/CMM 1.5 - 8.1 09/27/2014 [facility] HEMATOLOGY Basophils 1.1 % 0.0 - 1.0 09/27/2014 [facility] HEMATOLOGY Eosinophils 10.3 % 0.0 - 4.0 09/27/2014 [facility] HEMATOLOGY Monocytes # 0.7 K/CMM 0.0 - 0.8 09/27/2014 [facility] HEMATOLOGY Monocytes 7.1 % 2.0 - 12.0 09/27/2014 [facility] HEMATOLOGY Lymphocytes # 2.5 K/CMM 1.0 - 5.5 09/27/2014 [facility] HEMATOLOGY Lymphocytes 25.4 % 20.0 - 40.0 09/27/2014 [facility] HEMATOLOGY Segs 56.1 % 45.0 - 75.0 09/27/2014 [facility] HEMATOLOGY Eosinophils # 1.0 K/CMM 0.0 - 0.5 09/27/2014 [facility] HEMATOLOGY Basophils # 0.1 K/CMM 0.0 - 0.2 09/27/2014 [facility] MPV 9.6 fL 7.4 - 10.4 09/27/2014 [facility] Hct 39.1 % 42.0 - 54.0 09/27/2014 [facility] Platelet 217 K/CMM 133 - 450 09/27/2014 [facility] RDW 16.6 % 11.5 - 14.5 09/27/2014 [facility] MCHC 33.3 g/dL 32.0 - 36.0 09/27/2014 [facility] MCH 29.1 pg 27.0 - 31.0 09/27/2014 [facility] MCV 87.2 fL 80.0 - 94.0 09/27/2014 [facility] WBC 9.7 K/CMM 3.7 - 10.4 09/27/2014 [facility] Hgb 13.0 g/dL 14.0 - 18.0 09/27/2014 [facility] RBC 4.48 M/CMM 4.70 - 6.10 09/27/2014 [facility] DRUG SCREEN U Benzodia Scr Negative *NA* (09/26/14 10:45 PM) Negative 09/27/2014 [facility] DRUG SCREEN U Cocaine Scr Negative *NA* (09/26/14 10:45 PM) Negative 09/27/2014 [facility] DRUG SCREEN U Cannab Scr Negative *NA* (09/26/14 10:45 PM) Negative 09/27/2014 [facility] DRUG SCREEN U Amira Scr Negative *NA* (09/26/14 10:45 PM) Negative 09/27/2014 [facility] DRUG SCREEN U Amph Scr Negative *NA* (09/26/14 10:45 PM) Negative 09/27/2014 [facility] DRUG SCREEN U Phencyc Scr Negative *NA* (09/26/14 10:45 PM) Negative 09/27/2014 [facility] DRUG SCREEN UDS Note See Note 5 (09/26/14 10:45 PM) 09/27/2014 5Interpretive Data: Drugs reported as positive have not been confirmed by a second method and should be used for medical purposes only. To order confirmation, contact laboratory. note: Below are cut-off concentrations for all urine drugs of abuse performed in the laboratory. Some drugs listed in the table may not be included in this panel. Description Cut-off concentration Amphetamine 1000 ng/mL Barbiturates 200 ng/mL Benzodiazepines 300 ng/mL Cocaine metabolites 300 ng/mL Opiates 300 ng/mL Phencyclidine 25 ng/mL Propoxyphene 300 ng/mL Marijuana metabolites 50 ng/mL Methadone 300 ng/mL Urine alcohol 20 mg/dL [facility] DRUG SCREEN U Opiate Scr Positive *ABN* (09/26/14 10:45 PM) Negative 09/27/2014 [facility] CARDIAC ENZYMES Troponin-I null 0.00 - 0.40 09/27/2014 [facility] CARDIAC ENZYMES Total CK 82 unit/L 12 - 191 09/27/2014 [facility] CARDIAC ENZYMES CK MB Index null 0.0 - 2.5 09/27/2014 [facility] CARDIAC ENZYMES CK MB null 0.5 - 3.6 09/27/2014 [facility] CARDIAC ENZYMES Troponin-I null 0.00 - 0.40 09/26/2014 [facility] CARDIAC ENZYMES Total CK 92 unit/L 12 - 191 09/26/2014 [facility] CARDIAC ENZYMES CK MB Index 0.8 0.0 - 2.5 09/26/2014 [facility] CARDIAC ENZYMES CK MB 0.7 ng/mL 0.5 - 3.6 09/26/2014 [facility] CARDIAC ENZYMES proBNP 115 pg/mL 0 - 125 09/26/2014 [facility] CARDIAC ENZYMES CK MB 1.0 ng/mL 0.5 - 3.6 09/26/2014 [facility] CARDIAC ENZYMES Total CK 124 unit/L 12 - 191 09/26/2014 [facility] CARDIAC ENZYMES Troponin-I null 0.00 - 0.40 09/26/2014 [facility] CARDIAC ENZYMES CK MB Index 0.8 0.0 - 2.5 09/26/2014 [facility] CHEM PANEL Phosphorus 2.6 mg/dL 2.5 - 4.5 09/26/2014 [facility] CHEM PANEL Magnesium Lvl 2.0 mg/dL 1.8 - 2.4 09/26/2014 [facility] ELECTROLYTES Chloride Lvl 105 meq/L 95 - 109 09/26/2014 [facility] ELECTROLYTES Sodium Lvl 137 meq/L 135 - 145 09/26/2014 [facility] ELECTROLYTES Potassium Lvl 4.2 meq/L 3.5 - 5.1 09/26/2014 [facility] ELECTROLYTES eGFR 106 mL/min/1.73m2 09/26/2014 2Result Comment: The eGFR is calculated using the [...] from the [employer] (NKDEP) which additionally recommends that when the eGFR is used in patients with extremes of body mass index for purposes of drug dosing, the eGFR should be multiplied by the estimated BMI. [facility] ELECTROLYTES B/C Ratio 12 6 - 25 09/26/2014 [facility] ELECTROLYTES Globulin 3.2 g/dL 2.0 - 4.0 09/26/2014 [facility] ELECTROLYTES AGAP 10.2 meq/L 10.0 - 20.0 09/26/2014 [facility] ELECTROLYTES Bili Total 0.3 mg/dL 0.2 - 1.3 09/26/2014 [facility] ELECTROLYTES A/G Ratio 1.1 0.7 - 1.6 09/26/2014 [facility] ELECTROLYTES Alk Phos 98 unit/L 39 - 136 09/26/2014 [facility] ELECTROLYTES AST 18 unit/L 0 - 37 09/26/2014 [facility] ELECTROLYTES Albumin Lvl 3.5 g/dL 3.5 - 5.0 09/26/2014 [facility] ELECTROLYTES ALT 19 unit/L 0 - 65 09/26/2014 [facility] ELECTROLYTES Total Protein 6.7 g/dL 6.4 - 8.4 09/26/2014 [facility] ELECTROLYTES Calcium Lvl 8.8 mg/dL 8.5 - 10.5 09/26/2014 [facility] ELECTROLYTES CO2 26 meq/L 24 - 32 09/26/2014 [facility] ELECTROLYTES Creatinine Lvl 0.9 mg/dL 0.5 - 1.4 09/26/2014 [facility] ELECTROLYTES BUN 11 mg/dL 7 - 22 09/26/2014 [facility] ELECTROLYTES Glucose Lvl 98 mg/dL 70 - 99 09/26/2014 4Interpretive Data: Adult reference range values reflect the clinical guidelines of the [place] [employer]. [facility] MCH 29.4 pg 27.0 - 31.0 09/26/2014 [facility] Hgb 13.0 g/dL 14.0 - 18.0 09/26/2014 [facility] MCV 87.4 fL 80.0 - 94.0 09/26/2014 [facility] RBC 4.42 M/CMM 4.70 - 6.10 09/26/2014 [facility] Hct 38.6 % 42.0 - 54.0 09/26/2014 [facility] WBC 11.5 K/CMM 3.7 - 10.4 09/26/2014 [facility] Platelet 211 K/CMM 133 - 450 09/26/2014 [facility] RDW 17.2 % 11.5 - 14.5 09/26/2014 [facility] MCHC 33.7 g/dL 32.0 - 36.0 09/26/2014 [facility] MPV 9.8 fL 7.4 - 10.4 09/26/2014 [facility] D-Dimer 2.57 ug/mL FEU 09/26/2014 7Interpretive Data: In DIC, quantitative D-Dimer is generally greater than 0.66 ug/mL FEU. Values of quantitative D-Dimer less than 0.40 ug/mL FEU have been reported to be associated with a low probability of deep vein thrombosis/pulmonary embolism. This test alone should not be used to rule out DVT/PE. [facility] HEMATOLOGY INR 0.96 0.85 - 1.17 09/26/2014 6Interpretive Data: RECOMMENDED RANGES FOR PROTIME INR: 2.0-3.0 for most medical and surgical thromboembolic states. 2.5-3.5 for artificial heart valves and recurrent embolism. INR SHOULD BE USED ONLY FOR PATIENTS ON STABLE ANTICOAGULANT THERAPY. [facility] PTT 33.3 s 22.9 - 35.8 09/26/2014 8Interpretive Data: Heparin Therapeutic Range: 57 - 92 Seconds [facility] PT 12.8 s 12.0 - 14.7 09/26/2014 [facility] Basophils # 0.1 K/CMM 0.0 - 0.2 09/26/2014 [facility] Segs 65.0 % 45.0 - 75.0 09/26/2014 [facility] Eosinophils 10.0 % 0.0 - 4.0 09/26/2014 [facility] Monocytes 8.1 % 2.0 - 12.0 09/26/2014 [facility] Lymphocytes 15.7 % 20.0 - 40.0 09/26/2014 [facility] Lymphocytes # 1.8 K/CMM 1.0 - 5.5 09/26/2014 [facility] Monocytes # 0.9 K/CMM 0.0 - 0.8 09/26/2014 [facility] Eosinophils # 1.2 K/CMM 0.0 - 0.5 09/26/2014 [facility] Basophils 1.2 % 0.0 - 1.0 09/26/2014 [facility] Segs-Bands # 7.5 K/CMM 1.5 - 8.1 09/26/2014 [facility] Chest Pulmonary Embolism CTA Chest Pulmonary Embolism CTA HISTORY: Chest pain with elevated d-dimer. CT chest with IV contrast, attention pulmonary arteries. 3-D CTA post process reformat imaging. FINDINGS: No CT or CTA evidence for pulmonary embolus. No thoracic aortic aneurysm or dissection. Bullous emphysematous and fibrotic changes are noted within upper lobes and lung apices. Residual thymic tissue within the anterior mediastinum. No pathologically enlarged mediastinal or hilar lymph node. Limited visualized upper abdomen demonstrates previous cholecystectomy. Nondisplaced healing fracture or the left lateral sixth and seventh ribs. Small left pleural effusion and left lower lobe atelectasis. IMPRESSION: No evidence for pulmonary embolus. Bullous and fibrotic changes within the upper lung zones. Left rib fractures which appear recent, although some early healing may be present. Small left pleural fluid and left lung base atelectasis. No pneumothorax. SL:13 09/26/2014 - - Read by: Ronald Foster MD Dictated Date/time: 09/26/14 11:16 Electronically Signed by: Ronald Foster MD 09/26/14 11:21 FINAL REPORT [facility] Chest 1view DX Chest 1view DX HISTORY: Chest pain. Portable chest one view. Comparison 08/29/2014. Lungs are clear. Cardiac silhouette normal. No pleural effusion or pneumothorax. IMPRESSION: Negative. SL:09/26/2014 - - Read by: Ronald Foster MD Dictated Date/time: 09/26/14 09:50 Electronically Signed by: Ronald Foster MD 09/26/14 09:52 FINAL REPORT [facility] Ribs unilateral 3 views w PA chest DX Ribs unilateral 3 views w PA chest DX LEFT RIB SERIES WITH PA CHEST 5 VIEWS INDICATION: Trauma COMPARISON: Chest radiograph 02/19/2007 IMPRESSION: 1. No fractures or osteolytic or sclerotic lesions are visualized. 2. No acute intrathoracic abnormalities are visualized. SL: 16 08/29/2014 - - Read by: Jim Cerna MD Dictated Date/time: 08/29/14 11:41 Electronically Signed by: Jim Cerna MD 08/29/14 11:43 FINAL REPORT [facility] Finger AP lateral oblique Finger AP lateral oblique Left thumb 3 views: There is a nondisplaced longitudinal fracture involving the mid and distal shaft of the proximal phalanx. There does not appear to be any definite articular involvement on either side There is no other fracture or dislocation. SL:09/21/2013 - - Read by: Dex Wiggins MD Dictated Date/time: 09/21/13 19:18 Electronically Signed by: Dex Wiggins MD 09/21/13 19:19 FINAL REPORT [facility] CHEMISTRY eGFR 106 mL/min/1.73m2 05/16/2013 1Result Comment: The eGFR is calculated using [...] from the National Kidney Disease Education Program (NKDEP) which additionally recommends that when the eGFR is used in patients with extremes of body mass index for purposes of drug dosing, the eGFR should be multiplied by the estimated BMI. [facility] CHEMISTRY Chloride Lvl 105 meq/L 95 - 109 05/16/2013 Normal [facility] CHEMISTRY Potassium Lvl 3.4 meq/L 3.5 - 5.1 05/16/2013 LOW [facility] CHEMISTRY Sodium Lvl 138 meq/L 135 - 145 05/16/2013 Normal [facility] CHEMISTRY Creatinine Lvl 0.9 mg/dL 0.5 - 1.4 05/16/2013 Normal [facility] CHEMISTRY BUN 6 mg/dL 7 - 22 05/16/2013 LOW [facility] CHEMISTRY Glucose Lvl 105 mg/dL 70 - 99 05/16/2013 HI 2Interpretive Data: Adult reference range values reflect the clinical guidelines of the [place] [employer]. [facility] CHEMISTRY Calcium Lvl 10.2 mg/dL 8.5 - 10.5 05/16/2013 Normal [facility] CHEMISTRY CO2 25 meq/L 24 - 32 05/16/2013 Normal [facility] CHEMISTRY AGAP 11.4 meq/L 10.0 - 20.0 05/16/2013 Normal [facility] HEMATOLOGY Hgb 14.8 g/dL 14.0 - 18.0 05/16/2013 Normal [facility] HEMATOLOGY RBC X 10x6 5.01 M/CMM 4.70 - 6.10 05/16/2013 Normal [facility] HEMATOLOGY MPV 9.7 fL 7.4 - 10.4 05/16/2013 Normal [facility] HEMATOLOGY Platelet 205 K/CMM 133 - 450 05/16/2013 Normal [facility] HEMATOLOGY RDW 15.7 % 11.5 - 14.5 05/16/2013 HI [facility] HEMATOLOGY MCHC 33.4 g/dL 32.0 - 36.0 05/16/2013 Normal [facility] HEMATOLOGY WBC X 10x3 13.9 K/CMM 3.7 - 10.4 05/16/2013 [facility] HEMATOLOGY MCH 29.5 pg 27.0 - 31.0 05/16/2013 Normal [facility] HEMATOLOGY MCV 88.4 fL 80.0 - 94.0 05/16/2013 Normal [facility] HEMATOLOGY Hct 44.3 % 42.0 - 54.0 05/16/2013 Normal [facility] HEMATOLOGY Eosinophils 2.1 % 0.0 - 4.0 05/16/2013 Normal [facility] HEMATOLOGY Monocytes 5.5 % 2.0 - 12.0 05/16/2013 Normal [facility] HEMATOLOGY Segs 74.8 % 45.0 - 75.0 05/16/2013 Normal [facility] HEMATOLOGY Lymphocytes 17.1 % 20.0 - 40.0 05/16/2013 LOW [facility] HEMATOLOGY Basophils # 0.1 K/CMM 0.0 - 0.2 05/16/2013 Normal [facility] HEMATOLOGY Eosinophils # 0.3 K/CMM 0.0 - 0.5 05/16/2013 Normal [facility] HEMATOLOGY Monocytes # 0.8 K/CMM 0.0 - 0.8 05/16/2013 Normal [facility] HEMATOLOGY Lymphocytes # 2.4 K/CMM 1.0 - 5.5 05/16/2013 Normal [facility] HEMATOLOGY Segs-Bands # 10.4 K/CMM 1.5 - 8.1 05/16/2013 HI [facility] HEMATOLOGY Basophils 0.5 % 0.0 - 1.0 05/16/2013 Normal [facility] INR 0.83 0.85 - 1.17 05/16/2013 LOW 3Interpretive Data: RECOMMENDED RANGES FOR PROTIME INR: 2.0-3.0 for most medical and surgical thromboembolic states. 2.5-3.5 for artificial heart valves and recurrent embolism. INR SHOULD BE USED ONLY FOR PATIENTS ON STABLE ANTICOAGULANT THERAPY. [facility] PROTIME 11.4 s 12.0 - 14.7 05/16/2013 LOW [facility] aPTT 27.1 s 22.9 - 35.8 05/16/2013 Normal 4Interpretive Data: Heparin Therapeutic Range: 57 - 92 Seconds [facility] URINALYSIS UA Urobilinogen <=1.0 mg/dL 0.1 - 1.0 05/16/2013 [facility] URINALYSIS UA Glucose Negative mg/dL Negative 05/16/2013 [facility] URINALYSIS UA Blood Large *ABN* (05/16/2013 15:25:00) Negative 05/16/2013 ABN [facility] URINALYSIS UA Nitrite Negative (05/16/2013 15:25:00) Negative 05/16/2013 Normal [facility] URINALYSIS UA Ketones Negative mg/dL Negative 05/16/2013 [facility] URINALYSIS UA Bili Negative *NA* (05/16/2013 15:25:00) Negative 05/16/2013 [facility] URINALYSIS UA Color Yellow *NA* (05/16/2013 15:25:00) Yellow 05/16/2013 [facility] URINALYSIS UA Mucus Few /LPF None Seen 05/16/2013 [facility] URINALYSIS UA Spec Grav 1.011 <=1.030 05/16/2013 Normal [facility] URINALYSIS UA Protein Negative mg/dL Negative 05/16/2013 Normal [facility] URINALYSIS UA pH 6.0 5.0 - 8.0 05/16/2013 Normal [facility] URINALYSIS UA Leuk Est Small *ABN* (05/16/2013 15:25:00) Negative 05/16/2013 ABN [facility] URINALYSIS UA RBC null 0 - 2 05/16/2013 HI [facility] URINALYSIS UA Sq Epi Few /LPF Few 05/16/2013 [facility] URINALYSIS UA Bacteria Occasional /HPF None Seen 05/16/2013 [facility] URINALYSIS UA WBC 7 /HPF 0 - 5 05/16/2013 HI [facility] URINALYSIS UA Turbidity Marked *ABN* (05/16/2013 15:25:00) Clear 05/16/2013 ABN [facility] Abdomen/Pelvis wo IV contrast CT Abdomen/Pelvis wo IV contrast CT CT abdomen without contrast, CT pelvis without contrast. COMPARISON: 12/20/2012. TECHNIQUE: Contiguous transaxial images of the abdomen and pelvis were performed from the lung bases to the pubic rami without IV or oral contrast. CT ABDOMEN: 2 calyceal calculi in the upper to midportion of right kidney are stable in appearance from previous study. No ureteric calculi. No hydronephrosis is evident on either side. Given the limitations of a noncontrast study, no gross abnormality is noted in the liver, spleen, pancreas, and both adrenals. Status post cholecystectomy. Additional surgical clips are noted in the right lower abdomen. There is no evidence for free fluid or free air in the abdomen. No significant retroperitoneal lymphadenopathy is noted. CT PELVIS: There is no evidence for distal ureteric or bladder calculi. Occasional phleboliths are incidentally noted. Given the limitation of a noncontrast study, no gross abnormality is seen in the bladder, prostate gland or the seminal vesicles. No free fluid is present in the pelvis. Bony structures are grossly unremarkable IMPRESSION: Nonobstructing calyceal calculi are visualized in the right kidney. No obstructing ureteric calculi. No hydronephrosis No significant acute abnormality is evident. SL:13 05/16/2013 - - Read by: Luis Enrique Tsai Dictated Date/time: 05/16/13 15:40 Electronically Signed by: Luis Enrique Tsai MD 05/16/13 15:46 FINAL REPORT [facility] Vital Signs Vital Sign Value Date Comments Source Weight 95 04/03/2017 [facility] Systolic (mm Hg) 144 04/03/2017 [facility] Diastolic (mm Hg) 85 04/03/2017 [facility] Respitory Rate 20 04/03/2017 [facility] Heart Rate 79 04/03/2017 [facility] Temperature Oral (F) 98.1 F 04/03/2017 [facility] Respitory Rate 20 04/03/2017 [facility] Respitory Rate 18 04/03/2017 [facility] Systolic (mm Hg) 112 04/03/2017 [facility] Diastolic (mm Hg) 71 04/03/2017 [facility] Heart Rate 68 04/03/2017 [facility] Temperature Oral (F) 97.9 F 04/03/2017 [facility] Temperature Oral (F) 97.9 F 04/03/2017 [facility] Heart Rate 76 04/03/2017 [facility] Systolic (mm Hg) 113 04/03/2017 [facility] Diastolic (mm Hg) 68 04/03/2017 [facility] Weight 95.455 03/30/2017 [facility] Height 175.26 cm 03/30/2017 [facility] BMI Calculated 31.08 03/30/2017 [facility] Height 175.26 cm 03/30/2017 [facility] BMI Calculated 31.08 03/30/2017 [facility] Weight 95.455 03/30/2017 [facility] Systolic (mm Hg) 99 12/11/2016 [facility] Diastolic (mm Hg) 57 12/11/2016 [facility] Systolic (mm Hg) 98 12/11/2016 [facility] Diastolic (mm Hg) 50 12/11/2016 [facility] Systolic (mm Hg) 104 12/11/2016 [facility] Diastolic (mm Hg) 59 12/11/2016 [facility] Respitory Rate 9 12/11/2016 [facility] Respitory Rate 12 12/11/2016 [facility] Respitory Rate 16 12/11/2016 [facility] BMI Calculated 31.69 12/07/2016 [facility] Height 172.72 cm 12/07/2016 [facility] Weight 94.545 12/07/2016 [facility] Respitory Rate 14 11/15/2016 [facility] Systolic (mm Hg) 110 11/15/2016 [facility] Diastolic (mm Hg) 67 11/15/2016 [facility] Heart Rate 60 11/15/2016 [facility] Respitory Rate 14 11/15/2016 [facility] Systolic (mm Hg) 113 11/15/2016 [facility] Diastolic (mm Hg) 77 11/15/2016 [facility] Heart Rate 64 11/15/2016 [facility] Systolic (mm Hg) 101 11/15/2016 [facility] Diastolic (mm Hg) 69 11/15/2016 [facility] Respitory Rate 13 11/15/2016 [facility] Temperature Oral (F) 98.3 F 11/14/2016 [facility] Heart Rate 83 11/14/2016 [facility] Weight 94.545 11/14/2016 [facility] BMI Calculated 31.69 11/14/2016 [facility] Height 172.72 cm 11/14/2016 [facility] Respitory Rate 14 05/23/2016 [facility] Systolic (mm Hg) 119 05/23/2016 [facility] Diastolic (mm Hg) 69 05/23/2016 [facility] Respitory Rate 14 05/23/2016 [facility] Systolic (mm Hg) 128 05/23/2016 [facility] Diastolic (mm Hg) 84 05/23/2016 [facility] Respitory Rate 14 05/23/2016 [facility] Systolic (mm Hg) 132 05/23/2016 [facility] Diastolic (mm Hg) 82 05/23/2016 [facility] Temperature Oral (F) 95.5 F 05/21/2016 [facility] Heart Rate 82 05/21/2016 [facility] Weight 94.591 05/21/2016 [facility] Height 177.8 cm 05/21/2016 [facility] BMI Calculated 29.92 05/21/2016 [facility] Weight 220 05/09/2016 Enayet Rahim Height 69 05/09/2016 Enay[facility] Temperature Oral (F) 97.3 F 05/09/2016 [facility]ay[facility] Diastolic (mm Hg) 83 05/09/2016 Enay[facility] Systolic (mm Hg) 123 05/09/2016 Enay[facility] Weight 212 03/14/2016 Enayet Rahim Height 69 03/14/2016 Enayet Rahim Temperature Oral (F) 97.1 F 03/14/2016 Enay[facility] Diastolic (mm Hg) 79 03/14/2016 Enay[facility] Rah[facility] Systolic (mm Hg) 123 03/14/2016 [facility]ay[facility] Weight 210 02/06/2016 Enayet Rahim Height 69 02/06/2016 Enayet Rahim Temperature Oral (F) 97.4 F 02/06/2016 Enayet Rahim Diastolic (mm Hg) 75 02/06/2016 Enayet Rahim Systolic (mm Hg) 123 02/06/2016 [facility] Weight 214 11/25/2015 Enay[facility] Rahim Height 69 11/25/2015 Enayet Rah[facility] Temperature Oral (F) 97.3 F 11/25/2015 Enay[facility] Rah[facility] Diastolic (mm Hg) 76 11/25/2015 [facility] Systolic (mm Hg) 107 11/25/2015 Enay[facility] Rahim Heart Rate 99 11/04/2014 [facility] Systolic (mm Hg) 105 11/04/2014 [facility] Diastolic (mm Hg) 61 11/04/2014 [facility] Heart Rate 91 11/04/2014 [facility] Temperature Oral (F) 98.8 F 11/04/2014 [facility] Systolic (mm Hg) 93 11/04/2014 [facility] Diastolic (mm Hg) 54 11/04/2014 [facility] Respitory Rate 16 11/04/2014 [facility] Respitory Rate 16 11/04/2014 [facility] Weight 88.636 11/04/2014 [facility] Systolic (mm Hg) 118 11/04/2014 [facility] Diastolic (mm Hg) 71 11/04/2014 [facility] Temperature Oral (F) 98.8 F 11/04/2014 [facility] Heart Rate 92 11/04/2014 [facility] Respitory Rate 16 11/04/2014 [facility] Temperature Oral (F) 98.8 F 11/04/2014 [facility] Height 172.72 cm 11/01/2014 [facility] Weight 88.636 11/01/2014 [facility] BMI Calculated 29.71 11/01/2014 [facility] Weight 88.636 11/01/2014 [facility] BMI Calculated 29.71 11/01/2014 [facility] Height 172.72 cm 11/01/2014 [facility] Temperature Oral (F) 98 F 10/22/2014 [facility] Heart Rate 65 10/22/2014 [facility] Systolic (mm Hg) 95 10/22/2014 [facility] Diastolic (mm Hg) 61 10/22/2014 [facility] Respitory Rate 16 10/22/2014 [facility] Height 172.72 cm 10/22/2014 [facility] Weight 88.182 10/22/2014 [facility] BMI Calculated 29.56 10/22/2014 [facility] Systolic (mm Hg) 113 10/22/2014 [facility] Diastolic (mm Hg) 69 10/22/2014 [facility] Temperature Oral (F) 97.9 F 10/22/2014 [facility] Heart Rate 66 10/22/2014 [facility] Respitory Rate 18 10/22/2014 [facility] Systolic (mm Hg) 100 09/27/2014 [facility] Diastolic (mm Hg) 63 09/27/2014 [facility] Temperature Oral (F) 98 F 09/27/2014 [facility] Heart Rate 81 09/27/2014 [facility] Respitory Rate 15 09/27/2014 [facility] Temperature Oral (F) 98.1 F 09/27/2014 [facility] Heart Rate 68 09/27/2014 [facility] Systolic (mm Hg) 105 09/27/2014 [facility] Diastolic (mm Hg) 69 09/27/2014 [facility] Respitory Rate 15 09/27/2014 [facility] Systolic (mm Hg) 107 09/27/2014 [facility] Diastolic (mm Hg) 56 09/27/2014 [facility] Respitory Rate 15 09/27/2014 [facility] Heart Rate 71 09/27/2014 [facility] Temperature Oral (F) 98.4 F 09/27/2014 [facility] Weight 89.091 09/26/2014 [facility] BMI Calculated 29.86 09/26/2014 [facility] Height 172.72 cm 09/26/2014 [facility] Height 172.72 cm 09/26/2014 [facility] Weight 89.205 09/26/2014 [facility] BMI Calculated 29.9 09/26/2014 [facility] Systolic (mm Hg) 118 08/29/2014 [facility] Diastolic (mm Hg) 70 08/29/2014 [facility] Respitory Rate 18 08/29/2014 [facility] Heart Rate 80 08/29/2014 [facility] Temperature Oral (F) 98.1 F 08/29/2014 [facility] Weight 84.545 08/29/2014 [facility] Height 177.8 cm 08/29/2014 [facility] BMI Calculated 26.74 08/29/2014 [facility] Temperature Oral (F) 97.9 F 08/29/2014 [facility] Heart Rate 87 08/29/2014 [facility] Respitory Rate 18 08/29/2014 [facility] Systolic (mm Hg) 118 08/29/2014 [facility] Diastolic (mm Hg) 75 08/29/2014 [facility] Respitory Rate 16 09/22/2013 [facility] Temperature Oral (F) 98.0 F 09/22/2013 [facility] Diastolic (mm Hg) 68 09/22/2013 [facility] Heart Rate 82 09/22/2013 [facility] Systolic (mm Hg) 133 09/22/2013 [facility] Weight 87.273 09/21/2013 [facility] BMI Calculated 27.61 09/21/2013 [facility] Height 177.8 cm 09/21/2013 [facility] Temperature Oral (F) 98.2 F 09/21/2013 [facility] Heart Rate 81 09/21/2013 [facility] Respitory Rate 20 09/21/2013 [facility] Systolic (mm Hg) 138 09/21/2013 [facility] Diastolic (mm Hg) 84 09/21/2013 [facility] Respitory Rate 18 05/16/2013 [facility] Systolic (mm Hg) 107 05/16/2013 [facility] Heart Rate 62 05/16/2013 [facility] Diastolic (mm Hg) 65 05/16/2013 [facility] Temperature Oral (F) 98.4 F 05/16/2013 [facility] Weight 88.636 05/16/2013 [facility] Height 177.8 cm 05/16/2013 [facility] Temperature Oral (F) 98.2 F 05/16/2013 [facility] Heart Rate 96 05/16/2013 [facility] Respitory Rate 18 05/16/2013 [facility] Systolic (mm Hg) 122 05/16/2013 [facility] Diastolic (mm Hg) 79 05/16/2013 [facility] Weight 88.636 02/25/2013 [facility] Height 177.8 cm 02/25/2013 [facility] Diastolic (mm Hg) 65 02/25/2013 [facility] Heart Rate 88 02/25/2013 [facility] Systolic (mm Hg) 109 02/25/2013 [facility] Temperature Oral (F) 98.5 F 02/25/2013 [facility] Respitory Rate 18 02/25/2013 [facility] Encounters Location Location Details Encounter Type Encounter Number Reason For Visit Attending Provider ADM Date DC Date Status Source [facility] Emergency [id number] GAYLA CACERES 02/25/2013 02/25/2013 Active [facility] Emergency [id number] GAYLA CACERES 05/16/2013 05/16/2013 Active [facility] [id number] Gale Lenz 09/21/2013 09/22/2013 [facility] [id number] Jamel Finkamnbina 03/01/2014 03/01/2014 [facility] [id number] Smita Phadtare 08/29/2014 08/29/2014 [facility] OBS Observation Patient [id number] Paulette Westbrook 09/26/2014 09/27/2014 [facility] [id number] Loi Dumont 10/22/2014 10/22/2014 [facility] Inpatient [id number] Randell Ellison 11/01/2014 11/04/2014 [facility] Сергей Morales MD, PA ANNUAL PHYSICAL [id number] 11/25/2015 11/25/2015 Сергей Morales MD, PA ANNUAL PHYSICAL [id number] 11/25/2015 11/25/2015 Сергей Morales MD, PA ANNUAL PHYSICAL [id number] 11/25/2015 11/25/2015 Сергей Morales MD, PA ANNUAL PHYSICAL [id number] 11/25/2015 11/25/2015 Сергей Morales MD, PA ANNUAL PHYSICAL [id number] 11/25/2015 11/25/2015 Сергей Morales, MD, PA Unknown [id number] 12/08/2015 12/08/2015 Сергей Morales MD, PA Unknown [id number] 12/08/2015 12/08/2015 Сергей Morales MD, PA Unknown [id number] 12/08/2015 12/08/2015 Сергей Morales MD, PA Unknown [id number] 12/08/2015 12/08/2015 Сергей Morales MD, PA Unknown [id number] 12/08/2015 12/08/2015 Сергей Morales MD, PA Unknown [id number] 12/08/2015 12/08/2015 Сергей Morales MD, PA dr Raphael only [id number] 02/06/2016 02/06/2016 Сергей Morales MD, PA dr Raphael only [id number] 02/06/2016 02/06/2016 Сергей Morales MD, PA dr Raphael only [id number] 02/06/2016 02/06/2016 Сергей Morales MD, PA dr Raphael only [id number] 02/06/2016 02/06/2016 Сергей Morales MD, PA sick visit [id number] 03/14/2016 03/14/2016 Сергей Morales MD, PA sick visit [id number] 03/14/2016 03/14/2016 Сергей Morales MD, PA sick visit [id number] 03/14/2016 03/14/2016 Сергей Morales MD, PA Sick Visit [id number] 05/09/2016 05/09/2016 Сергей Morales MD, [facility] Sick Visit [id number] 05/09/2016 05/09/2016 Сергей Morales Outpatient [id number] [facility] 2016 Active [facility] Outpatient [id number] [facility] 2016 [facility] Day Surgery [id number] [facility] 05/23/2016 05/23/2016 [facility] Outpatient [id number] [facility] 06/11/2016 Active [facility] Outpatient [id number] [facility] 06/20/2016 Active [facility] Сергей Morales MD, PA Unknown [id number] 07/05/2016 07/05/2016 Сергей Morales [facility] Day Surgery [id number] Canelo Ng 11/15/2016 11/15/2016 [facility] Day Surgery [id number] Canelo Ng 12/11/2016 12/11/2016 [facility] – [place] [facility] [id number] Miladis Raphael 03/30/2017 04/03/2017 [facility] Procedures Procedure Code Date Perfomer Comments Source Re-release of carpal tunnel [id number] 11/15/2016 [facility] Introduction of needle or intracatheter, vein 92462 02/25/2013 [facility] Venous Catheterization, Not Elsewhere Classified 38.93 02/25/2013 [facility] Adenoidectomy [id number] [facility] Appendectomy [id number] [facility] Biliary lithotripsy [id number] [facility] Carpal tunnel release<sup>1</sup> [id number] Bilateral hands [facility] Cholecystectomy [id number] [facility] Donation of bone marrow [id number] [facility] Extract tooth [id number] [facility] Hemorrhoid operation [id number] [facility] Tonsillectomy [id number] [facility]
--- OUTSIDE RECORDS SUMMARY | 2018-02-27 18:11 | XMS REPORT | CCD ---
Author Author Auto Generated Organization [facility] Address Unknown Phone Unavailable Care Team Providers Care Char Filter Operator Helper Name Role Phone Vic Mauricio CP Allergies, Adverse Reactions, Alerts Substance Reaction Status naproxen Active penicillins Active [place] C Active Toradol Active traMADol Active Ultram [...]
--- OUTSIDE RECORDS SUMMARY | 2018-02-27 18:11 | XMS REPORT | CCD ---
Author Author Auto Generated Organization [facility] Address Unknown Phone Unavailable Care Team Providers Care [employer] Name Role Phone Vic Mauricio CP Allergies, Adverse Reactions, Alerts Substance Reaction Status naproxen Active penicillins Active [place] C Active Toradol Active traMADol Active Ultram [...] (02/25/2013 15:47:00) Weight 88.636 kg (02/25/2013 15:47:00) Procedures Procedures Date Related Diagnosis Introduction of needle or intracatheter, vein 02/25/2013 00:00:00 Venous Catheterization, Not Elsewhere Classified 02/25/2013 00:00:00
--- OUTSIDE RECORDS SUMMARY | 2018-02-27 18:12 | XMS REPORT | Summary of Care ---
Author Organization Unknown Address Unknown Phone Unavailable Encounter OCTAVIO Navarro(SHAHNAZ) [id number] Date(s): 10/22/14 - 10/22/14 [facility] [address] [place] [address]- Discharge Diagnosis: Hemorrhoids, external Discharge Disposition: Home Physician Attending: Loi Dumont MD Vital Signs Most recent to 1 2 oldest [Reference Range]: Height 172.72 cm (10/22/14 3:33 AM) Temperature Oral 98 DegF 97.9 DegF [96.4-99.1 DegF] (10/22/14 5:30 AM) (10/22/14 3:33 AM) Blood Pressure 95/61 mmHg 113/69 mmHg [90-140/60-90 mmHg] (10/22/14 5:30 AM) (10/22/14 3:33 AM) Respiratory Rate 16 BRMIN 18 BRMIN [14-20 BRMIN] (10/22/14 5:30 AM) (10/22/14 3:33 AM) Peripheral Pulse 65 bpm 66 bpm Rate [60-100 bpm] (10/22/14 5:30 AM) (10/22/14 3:33 AM) Weight 88.182 kg (10/22/14 3:33 AM) Body Mass Index 29.56 m2 (10/22/14 3:33 AM) Problem List Condition Effective Dates Status Health Status Informant Back Active injuries(Confirmed)1 Chronic back Active pain(Confirmed) GERD Active (gastroesophageal reflux disease)(Confirmed) Hypothyroidism(Confi Active rmed) Kidney Resolved calculus(Confirmed) Neck Active injuries(Confirmed) Psychiatric(Confirme Active d) Stent(Confirmed) Resolved 1Herniated disk Allergies, Adverse Reactions, Alerts Substance Reaction Severity Status naproxen Active Other Food Allergy coconut Active penicillins Active [place] C Active Toradol Active traMADol Active Ultram Active Zofran Active Medications Anusol-HC 2.5% rectal cream with applicator 1 appl, ME, BID, X 14 day, # 30 gm, 0 Refill(s) Start Date: 10/22/14 Stop Date: 11/05/14 Status: Ordered Colace 100 mg oral capsule 100 mg=1 cap, PO, BID, PRN Constipation, # 20 cap, 0 Refill(s) Start Date: 10/22/14 Status: Ordered lidocaine 4% topical cream 1 appl, Route: TOP, TID, Start date: 10/22/14 9:00:00, Duration: 30 day, Stop da te: 11/20/14 17:00:00 Start Date: 10/22/14 Stop Date: 10/22/14 Status: Canceled Lidocream 1 appl, Route: TOP, ONCE, Drug form: OINT, Start date: 10/22/14 3:53:00, Stop da te: 10/22/14 3:53:00 Notes: (Same as: Xylocaine) Start Date: 10/22/14 Stop Date: 10/22/14 Status: Completed Results BLOOD BANK RESULTS Most recent to 1 oldest [Reference Range]: ABO/Rh B POS *Unknown* (10/22/14 4:05 AM) Antibody Scrn Negative (10/22/14 4:05 AM) ELECTROLYTES Most recent to 1 oldest [Reference Range]: Sodium Lvl [135-145 140 mEq/L mEq/L] (10/22/14 4:05 AM) Potassium Lvl 3.7 mEq/L [3.5-5.1 mEq/L] (10/22/14 4:05 AM) Chloride Lvl [95-109 107 mEq/L mEq/L] (10/22/14 4:05 AM) CO2 [24-32 mEq/L] 27 mEq/L (10/22/14 4:05 AM) AGAP [10.0-20.0 9.7 mEq/L mEq/L] *LOW* (10/22/14 4:05 AM) CHEM PANEL Most recent to 1 oldest [Reference Range]: Creatinine Lvl 1.1 mg/dL [0.5-1.4 mg/dL] (10/22/14 4:05 AM) eGFR 83 mL/min/1.73m2 1 *NA* (10/22/14 4:05 AM) BUN [7-22 mg/dL] 10 mg/dL (10/22/14 4:05 AM) B/C Ratio [6-25] 9 (10/22/14 4:05 AM) Glucose Lvl [70-99 95 mg/dL 2 mg/dL] (10/22/14 4:05 AM) Total Protein 7.3 g/dL [6.4-8.4 g/dL] (10/22/14 4:05 AM) Albumin Lvl [3.5-5.0 3.5 g/dL g/dL] (10/22/14 4:05 AM) Globulin [2.0-4.0 3.8 g/dL g/dL] (10/22/14 4:05 AM) A/G Ratio [0.7-1.6] 0.9 (10/22/14 4:05 AM) Calcium Lvl 9.2 mg/dL [8.5-10.5 mg/dL] (10/22/14 4:05 AM) ALT [0-65 unit/L] 17 unit/L (10/22/14 4:05 AM) AST [0-37 unit/L] 13 unit/L (10/22/14 4:05 AM) Alk Phos [39-136 118 unit/L unit/L] (10/22/14 4:05 AM) Bili Total [0.2-1.3 <0.1 mg/dL mg/dL] *LOW* (10/22/14 4:05 AM) 1Result Comment: The eGFR is calculated using [...] values reflect the clinical guidelines of the [place] [employer]. HEMATOLOGY Most recent to 1 oldest [Reference Range]: WBC [3.7-10.4 K/CMM] 13.4 K/CMM *HI* (10/22/14 4:05 AM) RBC [4.70-6.10 4.40 M/CMM M/CMM] *LOW* (10/22/14 4:05 AM) Hgb [14.0-18.0 g/dL] 12.8 g/dL *LOW* (10/22/14 4:05 AM) Hct [42.0-54.0 %] 38.1 % *LOW* (10/22/14 4:05 AM) MCV [80.0-94.0 fL] 86.5 fL (10/22/14 4:05 AM) MCH [27.0-31.0 pg] 29.0 pg (10/22/14 4:05 AM) MCHC [32.0-36.0 33.5 g/dL g/dL] (10/22/14 4:05 AM) RDW [11.5-14.5 %] 15.8 % *HI* (10/22/14 4:05 AM) Platelet [133-450 266 K/CMM K/CMM] (10/22/14 4:05 AM) MPV [7.4-10.4 fL] 9.2 fL (10/22/14 4:05 AM) Segs [45.0-75.0 %] 68.9 % (10/22/14 4:05 AM) Lymphocytes 20.4 % [20.0-40.0 %] (10/22/14 4:05 AM) Monocytes [2.0-12.0 4.3 % %] (10/22/14 4:05 AM) Eosinophils [0.0-4.0 5.8 % %] *HI* (10/22/14 4:05 AM) Basophils [0.0-1.0 0.6 % %] (10/22/14 4:05 AM) Segs-Bands # 9.2 K/CMM [1.5-8.1 K/CMM] *HI* (10/22/14 4:05 AM) Lymphocytes # 2.7 K/CMM [1.0-5.5 K/CMM] (10/22/14 4:05 AM) Monocytes # [0.0-0.8 0.6 K/CMM K/CMM] (10/22/14 4:05 AM) Eosinophils # 0.8 K/CMM [0.0-0.5 K/CMM] *HI* (10/22/14 4:05 AM) Basophils # [0.0-0.2 0.1 K/CMM K/CMM] (10/22/14 4:05 AM) PT [12.0-14.7 13.2 seconds seconds] (10/22/14 4:05 AM) INR [0.85-1.17] 1.00 3 (10/22/14 4:05 AM) PTT [22.9-35.8 32.6 seconds 4 seconds] (10/22/14 4:05 AM) 3Interpretive Data: RECOMMENDED RANGES FOR PROTIME INR: 2.0-3.0 for most medical and surgical thromboembolic states. 2.5-3.5 for artificial heart valves and recurrent embolism. INR SHOULD BE USED ONLY FOR PATIENTS ON STABLE ANTICOAGULANT THERAPY. 4Interpretive Data: Heparin Therapeutic Range: 57 - 92 Seconds Immunizations Vaccine Date Refusal Reason influenza virus vaccine, inactivated 02/20/07 Procedures Procedure Date Related Diagnosis Body Site Adenoidectomy Appendectomy Biliary lithotripsy Carpal tunnel release1 Cholecystectomy Donation of bone marrow Extract tooth Tonsillectomy 1Bilateral hands Social History Social History Type Response Substance Abuse Use: None. Alcohol Never Smoking Status Current every day smoker; Type: Cigarettes; Tobacco use per day: 20; Exposure to Tobacco Smoke None; Cigarette Smoking Last 365 Days Yes; Reg Smoking Cessation Counseling Yes Assessment and Plan No data available for this section
--- OUTSIDE RECORDS SUMMARY | 2018-02-27 18:12 | XMS REPORT | Summary of Care ---
Author Organization Unknown Address Unknown Phone Unavailable Encounter [facility] Soto_gibran(FIN) [id number] Date(s): 02/28/14 - 02/28/14 [facility] [address] Discharge Disposition: Not Seen Physician Attending: Jamel Duenas MD Reason for Visit FLANK PAIN Problem List Condition Effective Dates Status Health Status Informant Kidney Resolved calculus(Confirmed) Stent(Confirmed) Resolved Allergies, Adverse Reactions, Alerts Substance Reaction Severity Status naproxen Active penicillins Active [place] C Active Toradol Active traMADol Active Ultram Active Zofran Active Medications No data available for this section Medications Administered During Your Visit No data available for this section Immunizations Vaccine Date Refusal Reason influenza virus vaccine, inactivated 02/20/07 Social History Social History Type Response Smoking Status Current every day smoker, Type: Cigarettes, Exposure to Tobacco Smoke None, Cigarette Smoking Last 365 Days Yes, Reg Smoking Cessation Counseling Yes
--- OUTSIDE RECORDS SUMMARY | 2018-02-27 18:12 | XMS REPORT | Summary of Care ---
Author Organization Unknown Address Unknown Phone Unavailable Encounter OCTAVIO Navarro(SHAHNAZ) [id number] Date(s): 08/29/14 - 08/29/14 [facility] [address] [place] [address]- Discharge Diagnosis: Accidental fall Discharge Diagnosis: Rib pain Discharge Disposition: Home Physician Attending: Smita Malik MD Vital Signs Most recent to 1 2 oldest [Reference Range]: Height 177.8 cm (08/29/14 10:30 AM) Temperature Oral 98.1 DegF 97.9 DegF [96.4-99.1 DegF] (08/29/14 12:29 PM) (08/29/14 10:30 AM) Blood Pressure 118/70 mmHg 118/75 mmHg [90-140/60-90 mmHg] (08/29/14 12:29 PM) (08/29/14 10:30 AM) Respiratory Rate 18 BRMIN 18 BRMIN [14-20 BRMIN] (08/29/14 12:29 PM) (08/29/14 10:30 AM) Peripheral Pulse 80 bpm 87 bpm Rate [60-100 bpm] (08/29/14 12:29 PM) (08/29/14 10:30 AM) Weight 84.545 kg (08/29/14 10:30 AM) Body Mass Index 26.74 m2 (08/29/14 10:30 AM) Problem List Condition Effective Dates Status Health Status Informant Kidney Resolved calculus(Confirmed) Stent(Confirmed) Resolved Allergies, Adverse Reactions, Alerts Substance Reaction Severity Status naproxen Active penicillins Active [place] C Active Toradol Active traMADol Active Ultram Active Zofran Active Medications Dilaudid 0.5 mg, Route: IM, ONCE, Dosing Weight 84.545, kg, Start date: 08/29/14 12:12:00 , Stop date: 08/29/14 12:12:00 Start Date: 08/29/14 Stop Date: 08/29/14 Status: Completed morphine Sulfate 4 mg, Route: IVP, Drug form: INJ, ONCE, Dosing Weight 84.545, kg, Priority: STAT , Start date: 08/29/14 11:41:00, Stop date: 08/29/14 11:41:00 Start Date: 08/29/14 Stop Date: 08/29/14 Status: Discontinued [place] 5/325 oral tablet 1-2 tab, PO, Q4-6H, PRN Pain, X 5 day, # 15 tab, 0 Refill(s) Start Date: 08/29/14 Stop Date: 09/03/14 Status: Ordered [place] 5/325 oral tablet 2 tab, Route: PO, Dosing Weight 84.545, kg, ONCE, Start date: 08/29/14 10:41:00, Stop date: 08/29/14 10:41:00 Start Date: 08/29/14 Stop Date: 08/29/14 Status: Completed Results No data available for this section Immunizations Vaccine Date Refusal Reason influenza virus vaccine, inactivated 02/20/07 Procedures No data available for this section Social History Social History Type Response Smoking Status Current every day smoker; Type: Cigarettes; Exposure to Tobacco Smoke None; Cigarette Smoking Last 365 Days Yes; Reg Smoking Cessation Counseling Yes Assessment and Plan No data available for this section
--- OUTSIDE RECORDS SUMMARY | 2018-02-27 18:12 | XMS REPORT | Summary of Care ---
Author Author [facility] Organization [facility] Address Unknown Phone Unavailable Encounter OCTAVIO Navarro(SHAHNAZ) [id number] Date(s): 11/15/16 - 11/15/16 [facility] [address] [place] [address]- [phone] Discharge Disposition: Home or Self Care Attending Physician: Canelo Ng Referring Physician: Canelo Ng Vital Signs 1 2 3 Most recent to oldest [Reference Range]: 172.72 cm (11/14/16 8:38 AM) Height 98.3 DegF (11/14/16 11:55 AM) Temperature Oral [96.4-99.1 DegF] 110/67 mmHg (11/15/16 9:00 AM) 113/77 mmHg (11/15/16 8:15 AM) 101/69 mmHg (11/15/16 8:00 AM) Blood Pressure [90-140/60-90 mmHg] 14 BRMIN (11/15/16 9:00 AM) 14 BRMIN (11/15/16 8:15 AM) 13 BRMIN *LOW* (11/15/16 8:00 AM) Respiratory Rate [14-20 BRMIN] 60 bpm (11/15/16 9:00 AM) 64 bpm (11/15/16 8:15 AM) 83 bpm (11/14/16 11:55 AM) Peripheral Pulse Rate [60-100 bpm] 94.545 kg (11/14/16 8:38 AM) Weight 31.69 m2 (11/14/16 8:38 AM) Body Mass Index Problem List Condition Effective Dates Status Health Status Informant Anxiety(Confirmed) Active Back Active injuries(Confirmed)1 Chronic back Active pain(Confirmed) Wears Active dentures(Confirmed)2 Carpal tunnel Active syndrome, right(Confirmed) GERD Active (gastroesophageal reflux disease)(Confirmed) Hypothyroidism(Confi Active rmed) Kidney Resolved calculus(Confirmed) Neck Active injuries(Confirmed) Obesity(Confirmed) Active Psychiatric(Confirme Active d) Smoker(Confirmed) Active Stent(Confirmed) Resolved 1Herniated disk 2upper denture Allergies, Adverse Reactions, Alerts Substance Reaction Severity Status naproxen Active Other Food Allergy coconut Active penicillins Active [place] C Active Toradol Active traMADol Active Ultram Active Zofran Active Medications acetaminophen 650 mg, Route: PO, Drug form: TAB, Q4H, Dosing Weight 94.545, kg, PRN Pain 1-3/T emp > 100.4 F, Start date: 11/15/16 7:06:00 CDT, Duration: 30 day, Stop date: 12/15/16 7:05:00 CDT Start Date: 11/15/16 Stop Date: 11/15/16 Status: Discontinued albuterol-ipratropium 2.5-0.5 mg inhalation solution 3 mL, Route: NEB, Dosing Weight 94.545, kg, ONCE, STAT, Start date: 11/15/16 5:3 9:00 CDT, Stop date: 11/15/16 5:39:00 CDT Start Date: 11/15/16 Stop Date: 11/15/16 Status: Discontinued ANES acetaminophen 1,000 mg, Route: PO, Drug form: TAB, ONCE, Dosing Weight 94.545, kg, PRN Pain Sc ore 1-3, Start date: 11/15/16 8:18:00 CDT, Duration: 1 doses or times, Stop date : Limited # of times Start Date: 11/15/16 Stop Date: 11/15/16 Status: Discontinued ANES albuterol 0.083% inhalation solution 2.49 mg, Route: NEB, Q20Min, Dosing Weight 94.545, kg, PRN Wheezing, Priority: S TAT, Start date: 11/15/16 8:18:00 CDT, Duration: 30 day, Stop date: 12/15/16 8:1 7:00 CDT Start Date: 11/15/16 Stop Date: 11/15/16 Status: Discontinued ANES diphenhydrAMINE 12.5 mg, Route: IVP, Drug form: INJ, Q6H, Dosing Weight 94.545, kg, PRN Itching, Start date: 11/15/16 8:18:00 CDT, Duration: 30 day, Stop date: 12/15/16 8:17:00 CDT Start Date: 11/15/16 Stop Date: 11/15/16 Status: Discontinued ANES esmolol 10 mg, Route: IVP, Q5Min, Dosing Weight 94.545, kg, PRN Other -See Comment, Star t date: 11/15/16 8:18:00 CDT, Duration: 5 doses or times, Stop date: Limited # o f times Start Date: 11/15/16 Stop Date: 11/15/16 Status: Discontinued ANES flumazenil 0.2 mg, Route: IVP, PRN, Dosing Weight 96.136, kg, PRN Benzodiazepine Reversal, Initial dose, Start date: 11/15/16 8:18:00 CDT, Duration: 30 day, Stop date: 8:17:00 CDT Start Date: 11/15/16 Stop Date: 11/15/16 Status: Discontinued ANES hydrALAZINE 10 mg, Route: IVP, Q20Min, Dosing Weight 94.545, kg, PRN Elevated BP, Start date : 11/15/16 8:18:00 CDT, Duration: 2 doses or times, Stop date: Limited # of time s Start Date: 11/15/16 Stop Date: 11/15/16 Status: Discontinued ANES HYDROmorphone 0.5 mg, Route: IVP, Q5Min, Dosing Weight 96.136, kg, PRN Pain Score 7-10, Start date: 11/15/16 8:18:00 CDT, Duration: 4 doses or times, Stop date: Limited # of times Start Date: 11/15/16 Stop Date: 11/15/16 Status: Discontinued ANES labetalol 10 mg, Route: IVP, Q5Min, Dosing Weight 94.545, kg, PRN Elevated BP, Start date: 11/15/16 8:18:00 CDT, Duration: 5 doses or times, Stop date: Limited # of times Start Date: 11/15/16 Stop Date: 11/15/16 Status: Discontinued ANES meperidine 12.5 mg, Route: IVP, Q30Min, Dosing Weight 94.545, kg, PRN Other -See Comment, F or shivering, Start date: 11/15/16 8:18:00 CDT, Duration: 2 doses or times, Stop date: Limited # of times Start Date: 11/15/16 Stop Date: 11/15/16 Status: Discontinued ANES naloxone 0.4 mg, Route: IVP, Q2MIN, Dosing Weight 96.136, kg, PRN Narcotic Reversal, Star t date: 11/15/16 8:18:00 CDT, Duration: 8 doses or times, Stop date: Limited # o f times Start Date: 11/15/16 Stop Date: 11/15/16 Status: Discontinued ANES oxyCODONE 5 mg, Route: PO, Drug form: TAB, Q4H, Dosing Weight 96.136, kg, PRN Pain Score 4 -6, Start date: 11/15/16 8:18:00 CDT, Duration: 30 day, Stop date: 12/15/16 8:17 :00 CDT Start Date: 11/15/16 Stop Date: 11/15/16 Status: Discontinued ANES promethazine 6.25 mg, Route: IVPB, ONCE, Dosing Weight 94.545, kg, PRN Nausea & Vomiting, Start date: 11/15/16 8:18:00 CDT Start Date: 11/15/16 Stop Date: 11/15/16 Status: Discontinued clindamycin (ANES) Route: IV, Drug form: INJ, ONCE, Stop date: 11/15/16 7:07:00 CDT Start Date: 11/15/16 Stop Date: 11/15/16 Status: Completed clindamycin 300 mg oral capsule 600 mg=2 cap, PO, TID, X 14 day, # 84 cap, 0 Refill(s), given to patient Start Date: 11/14/16 Stop Date: 11/28/16 Status: Ordered clindamycin 300 mg oral capsule 600 mg=2 cap, PO, TID, X 14 day, # 84 cap, 0 Refill(s) Start Date: 11/15/16 Stop Date: 11/29/16 Status: Ordered clindamycin 300 mg oral capsule 600 mg=2 cap, PO, TID, X 14 day, # 84 cap, 0 Refill(s), [id number] Start Date: 11/14/16 Stop Date: 11/28/16 Status: Ordered famotidine (ANES) Route: IV, Drug form: INJ, ONCE, Stop date: 11/15/16 7:20:00 CDT Start Date: 11/15/16 Stop Date: 11/15/16 Status: Completed fentaNYL (ANES) Route: IV, Drug form: INJ, ONCE, Stop date: 11/15/16 7:17:00 CDT Start Date: 11/15/16 Stop Date: 11/15/16 Status: Completed gabapentin 800 mg oral tablet 800 mg=1 tab, PO, TID, # 270 tab, 0 Refill(s) Start Date: 11/14/16 Status: Ordered hydromorphone 0.5 mg, Route: IVP, Q3H, Dosing Weight 94.545, kg, PRN Pain Score 4-6, Start johnny e: 11/15/16 7:06:00 CDT, Duration: 30 day, Stop date: 12/15/16 7:05:00 CDT Start Date: 11/15/16 Stop Date: 11/15/16 Status: Discontinued Lactated Ringers Injection IV 1000 mL 1,000 mL, Rate: 125 ml/hr, Infuse over: 8 hr, Route: IV, Dosing Weight 94.545 kg , Total Volume: 1,000, Start date: 11/15/16 8:18:00 CDT, Duration: 30 day, Stop date: 12/15/16 8:17:00 CDT Start Date: 11/15/16 Stop Date: 11/15/16 Status: Discontinued Lactated Ringers Injection IV 1000 mL 1,000 mL, Rate: 25 ml/hr, Infuse over: 40 hr, Route: IV, Dosing Weight 94.545 kg , Total Volume: 1,000, Start date: 11/15/16 5:39:00 CDT, Duration: 30 day, Stop date: 12/15/16 5:38:00 CDT Start Date: 11/15/16 Stop Date: 11/15/16 Status: Discontinued lidocaine (ANES) Route: IV, Drug form: INJ, ONCE, Stop date: 11/15/16 7:17:00 CDT Start Date: 11/15/16 Stop Date: 11/15/16 Status: Completed LR 1000 mL INJ (ANES) Route: IV, Total Volume: 1,000, Start date: 11/15/16 6:32:00 CDT, Stop date: 7:32:00 CDT Start Date: 11/15/16 Stop Date: 11/15/16 Status: Completed metoclopramide (ANES) Route: IV, Drug form: INJ, ONCE, Stop date: 11/15/16 7:20:00 CDT Start Date: 11/15/16 Stop Date: 11/15/16 Status: Completed midazolam (ANES) Route: IV, Drug form: SOLN, ONCE, Stop date: 11/15/16 7:17:00 CDT Start Date: 11/15/16 Stop Date: 11/15/16 Status: Completed oxyCODONE 5 mg oral tablet 10 mg, Route: PO, Drug form: TAB, ONCE, Dosing Weight 94.545, kg, PRN Pain Score 7-10, Start date: 11/15/16 8:21:00 CDT Start Date: 11/15/16 Stop Date: 11/15/16 Status: Completed propofol (ANES) Route: IV, Drug form: INJ, ONCE, Stop date: 11/15/16 7:17:00 CDT Start Date: 11/15/16 Stop Date: 11/15/16 Status: Completed Results HEMATOLOGY Most recent to 1 oldest [Reference Range]: WBC [3.7-10.4 K/CMM] 9.9 K/CMM (11/14/16 11:44 AM) RBC [4.70-6.10 5.41 M/CMM M/CMM] (11/14/16 11:44 AM) Hgb [14.0-18.0 g/dL] 15.2 g/dL (11/14/16 11:44 AM) Hct [42.0-54.0 %] 45.7 % (11/14/16 11:44 AM) MCV [80.0-94.0 fL] 84.5 fL (11/14/16 11:44 AM) MCH [27.0-31.0 pg] 28.1 pg (11/14/16 11:44 AM) MCHC [32.0-36.0 33.3 g/dL g/dL] (11/14/16 11:44 AM) RDW [11.5-14.5 %] 16.9 % *HI* (11/14/16 11:44 AM) Platelet [133-450 214 K/CMM K/CMM] (11/14/16 11:44 AM) MPV [7.4-10.4 fL] 10.0 fL (11/14/16 11:44 AM) Segs [45.0-75.0 %] 68.0 % (11/14/16 11:44 AM) Lymphocytes 22.4 % [20.0-40.0 %] (11/14/16 11:44 AM) Monocytes [2.0-12.0 6.2 % %] (11/14/16 11:44 AM) Eosinophils [0.0-4.0 1.9 % %] (11/14/16 11:44 AM) Basophils [0.0-1.0 1.5 % %] *HI* (11/14/16 11:44 AM) Segs-Bands # 6.7 K/CMM [1.5-8.1 K/CMM] (11/14/16 11:44 AM) Lymphocytes # 2.2 K/CMM [1.0-5.5 K/CMM] (11/14/16 11:44 AM) Monocytes # [0.0-0.8 0.6 K/CMM K/CMM] (11/14/16 11:44 AM) Eosinophils # 0.2 K/CMM [0.0-0.5 K/CMM] (11/14/16 11:44 AM) Basophils # [0.0-0.2 0.1 K/CMM K/CMM] (11/14/16 11:44 AM) Immunizations Given and Recorded Vaccine Date Status Refusal Reason influenza virus vaccine, inactivated 02/20/07 Given Procedures Procedure Date Related Diagnosis Body Site Adenoidectomy Appendectomy Biliary lithotripsy Carpal tunnel release1 Cholecystectomy Donation of bone marrow Extract tooth Hemorrhoid operation Tonsillectomy 1Bilateral hands Social History Social History Type Response Substance Abuse Use: None. Alcohol Never Smoking Status Current every day smoker; Type: Cigarettes; Tobacco use per day: 20; Exposure to Tobacco Smoke None; Cigarette Smoking Last 365 Days Yes; Reg Smoking Cessation Counseling Yes Assessment and Plan No data available for this section
--- OUTSIDE RECORDS SUMMARY | 2018-02-27 18:12 | XMS REPORT | Summary of Care ---
Author Author [facility] Organization [facility] Address Unknown Phone Unavailable Encounter OCTAVIO Navarro(SHAHNAZ) [id number] Date(s): 12/11/16 - 12/11/16 [facility] [address] [place] [address] [phone] Discharge Disposition: Home or Self Care Attending Physician: Canelo Ng Referring Physician: Canelo Ng Vital Signs 1 2 3 Most recent to oldest [Reference Range]: 172.72 cm (12/07/16 11:05 AM) Height 99/57 mmHg (12/11/16 9:30 AM) 98/50 mmHg (12/11/16 9:00 AM) 104/59 mmHg (12/11/16 8:15 AM) Blood Pressure [90-140/60-90 mmHg] 9 BRMIN *LOW* (12/11/16 8:15 AM) 12 BRMIN *LOW* (12/11/16 8:00 AM) 16 BRMIN (12/11/16 7:45 AM) Respiratory Rate [14-20 BRMIN] 94.545 kg (12/07/16 11:05 AM) Weight 31.69 m2 (12/07/16 11:05 AM) Body Mass Index Problem List Condition [...] Other Food Allergy coconut Active penicillins Active [place] C Active Toradol Active traMADol Active Ultram Active Zofran Active Medications acetaminophen 650 mg, Route: PO, Drug form: TAB, Q4H, Dosing Weight 94.545, kg, PRN Pain 1-3/T emp > 100.4 F, Start date: 12/11/16 6:53:00 CDT, Duration: 30 day, Stop date: 01/10/17 6:52:00 CDT Start Date: 12/11/16 Stop Date: 12/11/16 Status: Discontinued clindamycin 300 mg oral capsule 600 mg=2 cap, PO, TID, X 14 day, # 84 cap, 0 Refill(s) Start Date: 12/10/16 Stop Date: 12/24/16 Status: Ordered ePHEDrine (ANES) Route: IV, Drug form: INJ, ONCE, Stop date: 12/11/16 6:59:00 CDT Start Date: 12/11/16 Stop Date: 12/11/16 Status: Completed famotidine (ANES) Route: IV, Drug form: INJ, ONCE, Stop date: 12/11/16 6:59:00 CDT Start Date: 12/11/16 Stop Date: 12/11/16 Status: Completed fentaNYL (ANES) Route: IV, Drug form: INJ, ONCE, Stop date: 12/11/16 6:59:00 CDT Start Date: 12/11/16 Stop Date: 12/11/16 Status: Completed hydromorphone 0.5 mg, Route: IVP, Q3H, Dosing Weight 94.545, kg, PRN Pain Score 4-6, Start johnny e: 12/11/16 6:53:00 CDT, Duration: 30 day, Stop date: 01/10/17 6:52:00 CDT Start Date: 12/11/16 Stop Date: 12/11/16 Status: Discontinued lidocaine (ANES) Route: IV, Drug form: INJ, ONCE, Stop date: 12/11/16 6:59:00 CDT Start Date: 12/11/16 Stop Date: 12/11/16 Status: Completed LR 1000 mL INJ (ANES) Route: IV, Total Volume: 1,000, Start date: 12/11/16 6:29:00 CDT, Stop date: 7:29:00 CDT Start Date: 12/11/16 Stop Date: 12/11/16 Status: Completed metoclopramide (ANES) Route: IV, Drug form: INJ, ONCE, Stop date: 12/11/16 6:59:00 CDT Start Date: 12/11/16 Stop Date: 12/11/16 Status: Completed midazolam (ANES) Route: IV, Drug form: SOLN, ONCE, Stop date: 12/11/16 6:59:00 CDT Start Date: 12/11/16 Stop Date: 12/11/16 Status: Completed propofol (ANES) Route: IV, Drug form: INJ, ONCE, Stop date: 12/11/16 6:59:00 CDT Start Date: 12/11/16 Stop Date: 12/11/16 Status: Completed vancomycin (ANES) (ANES) Route: IV, Drug form: INJ, Start date: 12/11/16 6:30:00 CDT, Stop date: 12/11/16 7:30:00 CDT Start Date: 12/11/16 Stop Date: 12/11/16 Status: Completed Results HEMATOLOGY Most recent to 1 oldest [Reference Range]: WBC [3.7-10.4 K/CMM] 7.5 K/CMM (12/11/16 6:23 AM) RBC [4.70-6.10 4.87 M/CMM M/CMM] (12/11/16 6:23 AM) Hgb [14.0-18.0 g/dL] 13.7 g/dL *LOW* (12/11/16 6:23 AM) Hct [42.0-54.0 %] 41.5 % *LOW* (12/11/16 6:23 AM) MCV [80.0-94.0 fL] 85.1 fL (12/11/16 6:23 AM) MCH [27.0-31.0 pg] 28.1 pg (12/11/16 6:23 AM) MCHC [32.0-36.0 33.0 g/dL g/dL] (12/11/16 6:23 AM) RDW [11.5-14.5 %] 17.2 % *HI* (12/11/16 6:23 AM) Platelet [133-450 208 K/CMM K/CMM] (12/11/16 6:23 AM) MPV [7.4-10.4 fL] 9.6 fL (12/11/16 6:23 AM) Segs [45.0-75.0 %] 60.6 % (12/11/16 6:23 AM) Lymphocytes 28.6 % [20.0-40.0 %] (12/11/16 6:23 AM) Monocytes [2.0-12.0 6.5 % %] (12/11/16 6:23 AM) Eosinophils [0.0-4.0 3.5 % %] (12/11/16 6:23 AM) Basophils [0.0-1.0 0.8 % %] (12/11/16 6:23 AM) Segs-Bands # 4.5 K/CMM [1.5-8.1 K/CMM] (12/11/16 6:23 AM) Lymphocytes # 2.1 K/CMM [1.0-5.5 K/CMM] (12/11/16 6:23 AM) Monocytes # [0.0-0.8 0.5 K/CMM K/CMM] (12/11/16 6:23 AM) Eosinophils # 0.3 K/CMM [0.0-0.5 K/CMM] (12/11/16 6:23 AM) Basophils # [0.0-0.2 0.1 K/CMM K/CMM] (12/11/16 6:23 AM) Immunizations Given and Recorded Vaccine Date Status Refusal Reason influenza virus vaccine, inactivated 02/20/07 Given Procedures Procedure Date Related Diagnosis Body Site Re-release of carpal tunnel 11/15/16 Adenoidectomy Appendectomy Biliary lithotripsy Carpal tunnel release1 Cholecystectomy Donation of bone marrow Extract tooth Hemorrhoid operation Tonsillectomy 1Bilateral hands Social History Social History Type Response Substance Abuse Use: None. Alcohol Never Smoking Status Current every day smoker; Exposure to Tobacco Smoke None; Cigarette Smoking Last 365 Days Yes; Reg Smoking Cessation Counseling No Assessment and Plan No data available for this section
--- OUTSIDE RECORDS SUMMARY | 2018-02-27 18:12 | XMS REPORT | Summary of Care ---
Author Organization Unknown Address Unknown Phone Unavailable Encounter HQ Ramon(SHAHNAZ) [id number] Date(s): 09/26/14 - 09/27/14 [facility] [address] [place] [address]- Discharge Disposition: Home Physician Attending: Paulette Westbrook MD Physician Admitting: Paulette Westbrook MD Vital Signs 1 2 3 Most recent to oldest [Reference Range]: 172.72 cm (09/26/14 3:47 PM) 172.72 cm (09/26/14 7:26 AM) Height 98 DegF (09/27/14 11:00 AM) 98.1 DegF (09/27/14 3:21 AM) 98.4 DegF (09/26/14 11:49 PM) Temperature Oral [96.4-99.1 DegF] 100/63 mmHg (09/27/14 11:00 AM) 105/69 mmHg (09/27/14 3:21 AM) 107/56 mmHg (09/26/14 11:49 PM) Blood Pressure [90-140/60-90 mmHg] 15 BRMIN (09/27/14 11:00 AM) 15 BRMIN (09/27/14 3:21 AM) 15 BRMIN (09/26/14 11:49 PM) Respiratory Rate [14-20 BRMIN] 81 bpm (09/27/14 11:00 AM) 68 bpm (09/27/14 3:21 AM) 71 bpm (09/26/14 11:49 PM) Peripheral Pulse Rate [60-100 bpm] 89.091 kg (09/26/14 3:47 PM) 89.205 kg (09/26/14 7:26 AM) Weight 29.86 m2 (09/26/14 3:47 PM) 29.9 m2 (09/26/14 7:26 AM) Body Mass Index Problem List Condition Effective Dates Status Health Status Informant Back Active injuries(Confirmed)1 Chronic back Active pain(Confirmed) GERD Resolved (gastroesophageal reflux disease)(Confirmed) Hypothyroidism(Confi Resolved rmed) Kidney Resolved calculus(Confirmed) Neck Active injuries(Confirmed) Psychiatric(Confirme Active d) Stent(Confirmed) Resolved 1Herniated disk Allergies, Adverse Reactions, Alerts Substance Reaction Severity Status naproxen Active Other Food Allergy coconut Active penicillins Active [place] C Active Toradol Active traMADol Active Ultram Active Zofran Active Medications acetaminophen-hydrocodone 325 mg-10 mg oral tablet 1 tab, PO, Q6H, PRN Pain Score 1-5 Start Date: 09/26/14 Status: Ordered acetaminophen-hydrocodone 325 mg-10 mg oral tablet 1 tab, Route: PO, Drug Form: TAB, Dosing Weight 89.091, kg, Q6H, PRN Pain Score 1-5, Start date: 09/26/14 17:51:00, Duration: 30 day, Stop date: 10/26/14 17:50: 00 Notes: Do not exceed 4gm/day of acetaminophen. (Same as: [place] 325/10) Start Date: 09/26/14 Stop Date: 09/27/14 Status: Discontinued amitriptyline 25 mg, 1 tab, Route: PO, Drug form: TAB, Bedtime, Dosing Weight 89.091, kg, Star t date: 09/26/14 21:00:00, Duration: 30 day, Stop date: 10/25/14 21:00:00 Notes: (Same as: Sharathavil) Start Date: 09/26/14 Stop Date: 09/27/14 Status: Discontinued amitriptyline 25 mg oral tablet 25 mg=1 tab, PO, Bedtime, 0 Refill(s) Start Date: 09/26/14 Status: Ordered aspirin 324 mg, Route: PO, ONCE, Dosing Weight 89.205, kg, Priority: STAT, Start date: 0 09/26/14 8:08:00, Stop date: 09/26/14 8:08:00 Start Date: 09/26/14 Stop Date: 09/26/14 Status: Completed aspirin 81 mg tablet, enteric coated 81 mg, 1 tab, Route: PO, Drug form: ECTAB, Daily, Dosing Weight 89.205, kg, Star t date: 09/27/14 9:00:00, Duration: 30 day, Stop date: 10/26/14 9:00:00 Notes: Do not crush or chew.(Same As: Ecotrin) Start Date: 09/27/14 Stop Date: 09/27/14 Status: Discontinued aspirin 81 mg tablet, enteric coated 81 mg=1 tab, PO, Daily, 0 Refill(s) Start Date: 09/27/14 Status: Ordered atropine 0.5 mg, 5 mL, Route: IVP, Drug form: INJ, PRN, PRN Bradycardia, Start date: 08/29 05/13 14:56:00, Duration: 30 day, Stop date: 10/26/14 14:55:00 Start Date: 09/26/14 Stop Date: 09/27/14 Status: Discontinued baclofen Route: PO, Drug form: TAB, TID, Dosing Weight 89.091, kg, Start date: 09/26/14 2 1:00:00, Duration: 30 day, Stop date: 10/26/14 17:00:00 Notes: (Same As: Lioresal) Start Date: 09/26/14 Stop Date: 09/27/14 Status: Discontinued baclofen Route: PO, Drug form: TAB, TID, Dosing Weight 89.091, kg, Start date: 09/27/14 9 :00:00, Duration: 30 day, Stop date: 10/26/14 17:00:00 Notes: (Same As: Lioresal) Start Date: 09/27/14 Stop Date: 09/26/14 Status: Canceled baclofen 10 mg oral tablet 1 tab-2tab, PO, TID Start Date: 09/26/14 Status: Ordered fentaNYL 25 microgram, Route: TOP, Drug form: ERFILM, Q72H, Dosing Weight 89.091, kg, Sta rt date: 09/26/14 18:00:00, Duration: 30 day, Stop date: 10/23/14 18:00:00 Notes: (Same as: Duragesic)Check for product integrity. Apply to intact skin"Re move old patch before application of new patch" Start Date: 09/26/14 Stop Date: 09/27/14 Status: Discontinued fentaNYL 25 mcg/hr transdermal film, extended release 1 patch, TOP, Q72H Start Date: 09/26/14 Status: Ordered fentaNYL 50 mcg/hr transdermal film, extended release 1 patch, TOP, Q72H Start Date: 09/26/14 Stop Date: 09/26/14 Status: Discontinued fluticasone nasal 0.05 mg/inh spray 50 microgram, Route: NASAL, Drug Form: SPRY, Dosing Weight 89.091, kg, Daily, St art date: 09/27/14 9:00:00, Duration: 30 day, Stop date: 10/26/14 9:00:00 Notes: (Same as: Flonase) Start Date: 09/27/14 Stop Date: 09/27/14 Status: Discontinued fluticasone nasal 0.05 mg/inh spray 1 spray, NASAL, Daily, in each nostril Special Instructions: in each nostril Start Date: 09/26/14 Status: Ordered gabapentin 300 mg oral capsule 600 mg=2 cap, PO, TID Start Date: 09/26/14 Stop Date: 09/26/14 Status: Discontinued gabapentin 600 mg oral tablet 600 mg, 2 cap, Route: PO, Drug form: CAP, TID, Dosing Weight 89.091, kg, Start d ate: 09/27/14 9:00:00, Duration: 30 day, Stop date: 10/26/14 17:00:00 Notes: (Same as: Neurontin) Start Date: 09/27/14 Stop Date: 09/26/14 Status: Canceled gabapentin 600 mg oral tablet 600 mg, 2 cap, Route: PO, Drug form: CAP, TID, Dosing Weight 89.091, kg, Start d ate: 09/26/14 21:00:00, Duration: 30 day, Stop date: 10/26/14 17:00:00 Notes: (Same as: Neurontin) Start Date: 09/26/14 Stop Date: 09/27/14 Status: Discontinued gabapentin 600 mg oral tablet 600 mg=1 tab, PO, TID Start Date: 09/26/14 Status: Ordered levothyroxine 50 microgram, 1 tab, Route: PO, Drug form: TAB, Daily, Dosing Weight 89.091, kg, Start date: 09/27/14 9:00:00, Duration: 30 day, Stop date: 10/26/14 9:00:00 Notes: Take 1 hour before or 2 hours after meal; Enteral feeds may interefere wi th the absorption of this medication.(Same as:Levothroid, Synthroid) Start Date: 09/27/14 Stop Date: 09/27/14 Status: Discontinued levothyroxine 50 mcg (0.05 mg) oral tablet 50 microgram=1 tab, PO, Daily Start Date: 09/26/14 Status: Ordered Lovenox 90 mg, 0.9 mL, Route: SUB-Q, Drug form: INJ, ONCE, Dosing Weight 89.205, kg, Feli ority: NOW, Start date: 09/26/14 14:04:00, Stop date: 09/26/14 14:04:00 Notes: Nurse to ensure documentation of patient education per anticoagulation po licy.(Same as: Lovenox) Start Date: 09/26/14 Stop Date: 09/26/14 Status: Completed nicotine 21 mg, 1 patch, Route: TOP, Drug form: ERFILM, Daily, Dosing Weight 89.091, kg, Priority: NOW, Start date: 09/26/14 16:18:00, Duration: 30 day, Stop date: 10/26 9:00:00 Notes: (Same as: Habitrol)"Remove old patch before application of new patch" Start Date: 09/26/14 Stop Date: 09/27/14 Status: Discontinued nicotine 21 mg/24 hr transdermal film, extended release =1 patch, TOP, Daily, X 42 day, # 42 patch, 0 Refill(s) Start Date: 09/27/14 Stop Date: 11/08/14 Status: Ordered nitroglycerin SL Tab 0.4 mg, 1 tab, Route: SL, Drug form: TAB, Q5Min, Dosing Weight 89.205, kg, PRN C hest Pain, Start date: 09/26/14 14:42:00, Duration: 3 doses or times, Stop date: Limited # of times Notes: (Same as:Nitroquick, Nitrostat)"Do Not Crush" Sublingual tablet Start Date: 09/26/14 Stop Date: 09/27/14 Status: Discontinued [place] 10/325 oral tablet 2 tab, Route: PO, Drug Form: TAB, Dosing Weight 89.091, kg, Q6H, PRN Pain Score 6-10, Start date: 09/26/14 17:51:00, Duration: 30 day, Stop date: 10/26/14 17:50 :00 Notes: Do not exceed 4gm/day of acetaminophen. (Same as: [place] 325/10) Start Date: 09/26/14 Stop Date: 09/27/14 Status: Discontinued [place] 10/325 oral tablet 2 tab, PO, Q6H, PRN Pain Score 6-10, 0 Refill(s) Start Date: 09/26/14 Stop Date: 09/27/14 Status: Discontinued pantoprazole 40 mg, 1 tab, Route: PO, Drug form: ECTAB, Daily, Dosing Weight 89.091, kg, Star t date: 09/27/14 9:00:00, Duration: 30 day, Stop date: 10/26/14 9:00:00 Notes: Tablet should not be chewed or crushed.(Same as: Protonix) Start Date: 09/27/14 Stop Date: 09/27/14 Status: Discontinued pantoprazole 40 mg oral enteric coated tablet 40 mg=1 tab, PO, Daily Start Date: 09/26/14 Status: Ordered promethazine 25 mg, 1 tab, Route: PO, Drug form: TAB, Q6H, Dosing Weight 89.091, kg, PRN as n eeded for nausea/vomiting, Start date: 09/26/14 17:52:00, Duration: 30 day, Stop date: 10/26/14 17:51:00 Notes: (Same as: Phenergan) Start Date: 09/26/14 Stop Date: 09/27/14 Status: Discontinued promethazine 25 mg oral tablet 25 mg=1 tab, PO, Q6H, PRN as needed for nausea/vomiting, 0 Refill(s) Start Date: 09/26/14 Status: Ordered Saline Flush 0.9% 10 mL, Route: IVP, Drug Form: INJ, Dosing Weight 89.205, kg, PRN, PRN Line Flush , Start date: 09/26/14 8:08:00, Duration: 30 day, Stop date: 10/26/14 8:07:00 Notes: (Same as: BD Posiflush) Start Date: 09/26/14 Stop Date: 09/26/14 Status: Discontinued Saline Flush 0.9% 10 ml, Route: IVP, Drug Form: INJ, Dosing Weight 89.205, kg, PRN, PRN Line Flush , Start date: 09/26/14 14:42:00, Duration: 30 day, Stop date: 10/26/14 14:41:00 Start Date: 09/26/14 Stop Date: 09/26/14 Status: Deleted Saline Flush 0.9% 10 ml, Route: IVP, Drug Form: INJ, Dosing Weight 89.205, kg, Q12H, Start date: 0 09/26/14 21:00:00, Duration: 30 day, Stop date: 10/26/14 9:00:00 Notes: (Same as: BD Posiflush) Start Date: 09/26/14 Stop Date: 09/27/14 Status: Discontinued Results ELECTROLYTES 1 2 3 Most recent to oldest [Reference Range]: 140 mEq/L (09/27/14 4:20 AM) 137 mEq/L (09/26/14 8:33 AM) Sodium Lvl [135-145 mEq/L] 4.3 mEq/L (09/27/14 4:20 AM) 4.2 mEq/L (09/26/14 8:33 AM) Potassium Lvl [3.5-5.1 mEq/L] 105 mEq/L (09/27/14 4:20 AM) 105 mEq/L (09/26/14 8:33 AM) Chloride Lvl [95-109 mEq/L] 30 mEq/L (09/27/14 4:20 AM) 26 mEq/L (09/26/14 8:33 AM) CO2 [24-32 mEq/L] 9.3 mEq/L *LOW* (09/27/14 4:20 AM) 10.2 mEq/L (09/26/14 8:33 AM) AGAP [10.0-20.0 mEq/L] CHEM PANEL 1 2 3 Most recent to oldest [Reference Range]: 1.0 mg/dL (09/27/14 4:20 AM) 0.9 mg/dL (09/26/14 8:33 AM) Creatinine Lvl [0.5-1.4 mg/dL] 93 mL/min/1.73m2 1 *NA* (09/27/14 4:20 AM) 106 mL/min/1.73m2 2 *NA* (09/26/14 8:33 AM) eGFR 13 mg/dL (09/27/14 4:20 AM) 11 mg/dL (09/26/14 8:33 AM) BUN [7-22 mg/dL] 12 (09/26/14 8:33 AM) B/C Ratio [6-25] 83 mg/dL 3 (09/27/14 4:20 AM) 98 mg/dL 4 (09/26/14 8:33 AM) Glucose Lvl [70-99 mg/dL] 6.7 g/dL (09/26/14 8:33 AM) Total Protein [6.4-8.4 g/dL] 3.5 g/dL (09/26/14 8:33 AM) Albumin Lvl [3.5-5.0 g/dL] 3.2 g/dL (09/26/14 8:33 AM) Globulin [2.0-4.0 g/dL] 1.1 (09/26/14 8:33 AM) A/G Ratio [0.7-1.6] 9.5 mg/dL (09/27/14 4:20 AM) 8.8 mg/dL (09/26/14 8:33 AM) Calcium Lvl [8.5-10.5 mg/dL] 2.6 mg/dL (09/26/14 8:33 AM) Phosphorus [2.5-4.5 mg/dL] 2.0 mg/dL (09/26/14 8:33 AM) Magnesium Lvl [1.8-2.4 mg/dL] 19 unit/L (09/26/14 8:33 AM) ALT [0-65 unit/L] 18 unit/L (09/26/14 8:33 AM) AST [0-37 unit/L] 98 unit/L (09/26/14 8:33 AM) Alk Phos [39-136 unit/L] 0.3 mg/dL (09/26/14 8:33 AM) Bili Total [0.2-1.3 mg/dL] 1Result Comment: The eGFR is calculated using [...] be mul tiplied by the estimated BMI. 2Result Comment: The eGFR is calculated using [...] be mul tiplied by the estimated BMI. 3Interpretive Data: Adult reference range values reflect the clinical guidelines of the [employer]. 4Interpretive Data: Adult reference range values reflect the clinical guidelines of the [employer]. CARDIAC ENZYMES 1 2 3 Most recent to oldest [Reference Range]: 82 unit/L (09/26/14 8:18 PM) 92 unit/L (09/26/14 2:49 PM) 124 unit/L (09/26/14 8:33 AM) Total CK [12-191 unit/L] <0.5 ng/mL (09/26/14 8:18 PM) 0.7 ng/mL (09/26/14 2:49 PM) 1.0 ng/mL (09/26/14 8:33 AM) CK MB [0.5-3.6 ng/mL] <0.6 (09/26/14 8:18 PM) 0.8 (09/26/14 2:49 PM) 0.8 (09/26/14 8:33 AM) CK MB Index [0.0-2.5] <0.02 ng/mL (09/26/14 8:18 PM) <0.02 ng/mL (09/26/14 2:49 PM) <0.02 ng/mL (09/26/14 8:33 AM) Troponin-I [0.00-0.40 ng/mL] 115 pg/mL (09/26/14 8:33 AM) proBNP [0-125 pg/mL] DRUG SCREEN 1 2 3 Most recent to oldest [Reference Range]: Negative *NA* (09/26/14 10:45 PM) U Amph Scr [Negative] Negative *NA* (09/26/14 10:45 PM) U Amira Scr [Negative] Negative *NA* (09/26/14 10:45 PM) U Benzodia Scr [Negative] Negative *NA* (09/26/14 10:45 PM) U Cocaine Scr [Negative] Positive *ABN* (09/26/14 10:45 PM) U Opiate Scr [Negative] Negative *NA* (09/26/14 10:45 PM) U Phencyc Scr [Negative] Negative *NA* (09/26/14 10:45 PM) U Cannab Scr [Negative] See Note 5 (09/26/14 10:45 PM) UDS Note 5Interpretive Data: Drugs reported as positive have [...] Methadone 300 ng/mL Urine alcohol 20 mg/dL HEMATOLOGY 1 2 3 Most recent to oldest [Reference Range]: 9.7 K/CMM (09/27/14 4:20 AM) 11.5 K/CMM *HI* (09/26/14 8:33 AM) WBC [3.7-10.4 K/CMM] 4.48 M/CMM *LOW* (09/27/14 4:20 AM) 4.42 M/CMM *LOW* (09/26/14 8:33 AM) RBC [4.70-6.10 M/CMM] 13.0 g/dL *LOW* (09/27/14 4:20 AM) 13.0 g/dL *LOW* (09/26/14 8:33 AM) Hgb [14.0-18.0 g/dL] 39.1 % *LOW* (09/27/14 4:20 AM) 38.6 % *LOW* (09/26/14 8:33 AM) Hct [42.0-54.0 %] 87.2 fL (09/27/14 4:20 AM) 87.4 fL (09/26/14 8:33 AM) MCV [80.0-94.0 fL] 29.1 pg (09/27/14 4:20 AM) 29.4 pg (09/26/14 8:33 AM) MCH [27.0-31.0 pg] 33.3 g/dL (09/27/14 4:20 AM) 33.7 g/dL (09/26/14 8:33 AM) MCHC [32.0-36.0 g/dL] 16.6 % *HI* (09/27/14 4:20 AM) 17.2 % *HI* (09/26/14 8:33 AM) RDW [11.5-14.5 %] 217 K/CMM (09/27/14 4:20 AM) 211 K/CMM (09/26/14 8:33 AM) Platelet [133-450 K/CMM] 9.6 fL (09/27/14 4:20 AM) 9.8 fL (09/26/14 8:33 AM) MPV [7.4-10.4 fL] 56.1 % (09/27/14 4:20 AM) 65.0 % (09/26/14 8:33 AM) Segs [45.0-75.0 %] 25.4 % (09/27/14 4:20 AM) 15.7 % *LOW* (09/26/14 8:33 AM) Lymphocytes [20.0-40.0 %] 7.1 % (09/27/14 4:20 AM) 8.1 % (09/26/14 8:33 AM) Monocytes [2.0-12.0 %] 10.3 % *HI* (09/27/14 4:20 AM) 10.0 % *HI* (09/26/14 8:33 AM) Eosinophils [0.0-4.0 %] 1.1 % *HI* (09/27/14 4:20 AM) 1.2 % *HI* (09/26/14 8:33 AM) Basophils [0.0-1.0 %] 5.5 K/CMM (09/27/14 4:20 AM) 7.5 K/CMM (09/26/14 8:33 AM) Segs-Bands # [1.5-8.1 K/CMM] 2.5 K/CMM (09/27/14 4:20 AM) 1.8 K/CMM (09/26/14 8:33 AM) Lymphocytes # [1.0-5.5 K/CMM] 0.7 K/CMM (09/27/14 4:20 AM) 0.9 K/CMM *HI* (09/26/14 8:33 AM) Monocytes # [0.0-0.8 K/CMM] 1.0 K/CMM *HI* (09/27/14 4:20 AM) 1.2 K/CMM *HI* (09/26/14 8:33 AM) Eosinophils # [0.0-0.5 K/CMM] 0.1 K/CMM (09/27/14 4:20 AM) 0.1 K/CMM (09/26/14 8:33 AM) Basophils # [0.0-0.2 K/CMM] 12.8 seconds (09/26/14 8:33 AM) PT [12.0-14.7 seconds] 0.96 6 (09/26/14 8:33 AM) INR [0.85-1.17] 2.57 ug/mL FEU 7 *NA* (09/26/14 8:33 AM) D-Dimer 33.3 seconds 8 (09/26/14 8:33 AM) PTT [22.9-35.8 seconds] 6Interpretive Data: RECOMMENDED RANGES FOR PROTIME INR: 2.0-3.0 for most medical and surgical thromboembolic states. 2.5-3.5 for artificial heart valves and recurrent embolism. INR SHOULD BE USED ONLY FOR PATIENTS ON STABLE ANTICOAGULANT THERAPY. 7Interpretive Data: In DIC, quantitative D-Dimer is generally greater than 0.66 ug/mL FEU. Values of quantitative D-Dimer less than 0.40 ug/mL FEU have been reported to be associated with a low probability of deep vein thrombosis/pulmonary embolism. This test alone should not be used to rule out DVT/PE. 8Interpretive Data: Heparin Therapeutic Range: 57 - [...] Smoking Cessation Counseling Yes Assessment and Plan Extracted from: Title: Clinical Document Author: Miladis Raphael MD Date: 09/27/14 Medicine Progress Daily Chief Complaint: chest pain, tobacco abuse, anxiety Subjective & Interval history: Patient seen and examined. post stress, less anxious. wants to quit smoking and wants to know if chantix is an option. Objective: Vital Signs (last 24 hrs) Last Charted Temp Oral98.1 DegF (SEP 27 03:21) Heart Rate [id number] bpm (SEP 27 03:21) Resp Rate 15 BRMIN (SEP 27 03:21) UCC596 mmHg (SEP 27 03:21) DBP69 mmHg (SEP 27:21) Sccscy44.091 kg (SEPTEMBER 26 15:47) Jnsdlh276.72 cm (SEPTEMBER 26 15:47) BMI29.86 (SEPTEMBER 26 15:47) Medications and labs reviewed as below. PHYSICAL EXAM: GENERAL: AAO NAD HEENT: NCAT, perrl, eomi NECK: Supple, midline trachea LUNGS: CTAB, No rales, rhonchi or wheezes. CARDIOVASCULAR: S1, S2 normal. No M/G/R. ABDOMEN: Soft, ND, NT. BS + EXTREMITIES: No C/C , or Edema SKIN: No rashes. MUSCULOSKELETAL: Moving all extremities. Neuro: No new motor or sensory deficits IMPRESSION: 1. Acute chest pain. 2. Multiple risk factors for CAD. 3. Ongoing tobacco abuse. 4. Anxiety and depression. 5. Obsessive compulsive disorder. 6. Chronic radiculopathy, currently under the care of Dr. Nix [facility] T[facility]ATMENT continue home meds' Discussed with patient that chnatix is not a good option due to his anxiety, depression, and historyof suicidal ideations. Continue pain meds and follow up with Dr. Nix. Will start on nicotine patch. patient will be refered to Dr. Hennessy. Information provided. For details see orders. Plan of care discussed with Disposition: Input/Output RecordInOutBal 0124hr Tot 10 0 10 053124hr Tot 10 0 10 Scheduled Meds (10):amitriptyline, aspirin (aspirin 81 mg tablet, enteric coated), baclofen, fentaNYL, fluticasone nasal (fluticasone nasal 0.05 mg/inh spray), gabapentin (gabapentin 600 mg oral tablet), levothyroxine, nicotine, pantoprazole, sodium chloride (Saline Flush 0.9%) Unscheduled Meds: None PRN Meds (5):acetaminophen-hydrocodone (acetaminophen-hydrocodone 325 mg-10 mg oral tablet), acetaminophen-hydrocodone ([place] 10/325 oral tablet), atropine, nitroglycerin (nitroglycerin SL Tab), promethazine One Time Meds (2):(Completed) aspirin, (Completed) enoxaparin (Lovenox) Continuous Infusions: None Labs (Last four charted values) WBC 9.7(SEP 27)H 11.5(SEPTEMBER 26) Hgb L 13.0(SEP 27)L 13.0(SEPTEMBER 26) Hct L 39.1(SEP 27)L 38.6(SEPTEMBER 26) Plt 217(SEP 27)211(SEPTEMBER 26) Na 140(SEP 27)137(SEPTEMBER 26) K 4.3(SEP 27)4.2(SEPTEMBER 26) CO2 30(SEP 27)26(SEPTEMBER 26) Cl 105(SEP 27)105(SEPTEMBER 26) Cr 1.0(SEP 27)0.9(SEPTEMBER 26) BUN 13(SEP 27)11(SEPTEMBER 26) Glucose Random 83(SEP 27)98(SEPTEMBER 26) Mg 2.0(SEPTEMBER 26) Phos 2.6(SEPTEMBER 26) Ca 9.5(SEP 27)8.8(SEPTEMBER 26) PT 12.8(SEPTEMBER 26) INR 0.96(SEPTEMBER 26) PTT 33.3(SEPTEMBER 26) Troponin <0.02(SEPTEMBER 26)<0.02(SEPTEMBER 26)<0.02(SEPTEMBER 26) CK MB <0.5(SEPTEMBER 26)0.7(SEPTEMBER 26)1.0(SEPTEMBER 26) Total CK 82(SEPTEMBER 26)92(SEPTEMBER 26)124(SEPTEMBER 26)
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
--- OUTSIDE RECORDS SUMMARY | 2018-02-27 18:12 | XMS REPORT | Summary of Care ---
Author Organization Unknown Address Unknown Phone Unavailable Encounter [facility](SHAHNAZ) [id number] Date(s): 11/01/14 - 11/04/14 [facility] [address] [place] [address]- Discharge Disposition: Home Physician Attending: Randell Ellison MD Physician Admitting: Randell Ellison MD Vital Signs 1 2 3 Most recent to oldest [Reference Range]: 172.72 cm (11/01/14 6:25 PM) 172.72 cm (11/01/14 6:47 AM) Height 98.8 DegF (11/04/14 11:47 AM) 98.8 DegF (11/04/14 8:04 AM) 98.8 DegF (11/04/14 3:53 AM) Temperature Oral [96.4-99.1 DegF] 105/61 mmHg (11/04/14 1:05 PM) 93/54 mmHg (11/04/14 11:47 AM) 118/71 mmHg (11/04/14 8:04 AM) Blood Pressure [90-140/60-90 mmHg] 16 BRMIN (11/04/14 11:47 AM) 16 BRMIN (11/04/14 9:26 AM) 16 BRMIN (11/04/14 8:04 AM) Respiratory Rate [14-20 BRMIN] 99 bpm (11/04/14 1:05 PM) 91 bpm (11/04/14 11:47 AM) 92 bpm (11/04/14 8:04 AM) Peripheral Pulse Rate [60-100 bpm] 88.636 kg (11/04/14 9:00 AM) 88.636 kg (11/01/14 6:25 PM) 88.636 kg (11/01/14 6:47 AM) Weight 29.71 m2 (11/01/14 6:25 PM) 29.71 m2 (11/01/14 6:47 AM) Body Mass Index Problem List Condition Effective Dates Status Health Status Informant Back Active injuries(Confirmed)1 Chronic back Active pain(Confirmed) GERD Active (gastroesophageal reflux disease)(Confirmed) Hypothyroidism(Confi Active rmed) Kidney Resolved calculus(Confirmed) Neck Active injuries(Confirmed) Psychiatric(Confirme Active d) Stent(Confirmed) Resolved 1Herniated disk Allergies, Adverse Reactions, Alerts Substance Reaction Severity Status naproxen Active Other Food Allergy coconut Active penicillins Active Nelson C Active Toradol Active traMADol Active Ultram Active Zofran Active Medications acetaminophen-hydrocodone 325 mg-10 mg oral tablet 1 tab, Route: PO, Drug Form: TAB, Dosing Weight 88.636, kg, Q6H, PRN Pain Score 1-5, Start date: 11/01/14 10:42:00, Duration: 30 day, Stop date: 12/01/14 10:41: 00 Notes: Do not exceed 4gm/day of acetaminophen. (Same as: [place] 325/10) Start Date: 11/01/14 Stop Date: 11/04/14 Status: Discontinued acetaminophen-hydrocodone 325 mg-10 mg oral tablet 1 tab, Route: PO, Drug Form: TAB, Dosing Weight 88.636, kg, Q4H, PRN Pain Score 1-5, Start date: 11/04/14 9:23:00, Duration: 30 day, Stop date: 12/04/14 9:22:00 Notes: Do not exceed 4gm/day of acetaminophen. (Same as: [place] 325/10) Start Date: 11/04/14 Stop Date: 11/04/14 Status: Discontinued amitriptyline 25 mg, 1 tab, Route: PO, Drug form: TAB, Bedtime, Dosing Weight 88.636, kg, Star t date: 11/01/14 21:00:00, Duration: 30 day, Stop date: 11/30/14 21:00:00 Notes: (Same as: Elavil) Start Date: 11/01/14 Stop Date: 11/04/14 Status: Discontinued Anusol-HC 2.5% rectal cream with applicator 1 appl, Route: ND, BID, Drug form: CRM/A, Start date: 11/01/14 17:00:00, Duratio n: 30 day, Stop date: 12/01/14 9:00:00 Notes: (Same as: Anusol-HC, Proctosol-HC) Start Date: 11/01/14 Stop Date: 11/02/14 Status: Discontinued Ativan 1 mg, 0.5 mL, Route: IVP, Drug form: INJ, ONCE, Dosing Weight 88.636, kg, PRN An xiety, Start date: 11/02/14 9:31:00 Notes: (Same as: Ativan) Start Date: 11/02/14 Stop Date: 11/02/14 Status: Completed baclofen Route: PO, Drug form: TAB, TID, Dosing Weight 88.636, kg, Start date: 11/01/14 1 3:00:00, Duration: 30 day, Stop date: 12/01/14 9:00:00 Notes: (Same As: Lioresal) Start Date: 11/01/14 Stop Date: 11/04/14 Status: Discontinued cefOXitin + Sodium Chloride 0.9% IV 100 mL 2 gm, Route: IVPB, ONCE, Dosing Weight 88.636, kg, Start date: 11/02/14 12:14:00 , Stop date: 11/02/14 12:14:00 Notes: (Same As: Mefoxin) MEDICATION WASTE Product Size: 2000 mgProduct Wasted: ___ mg Start Date: 11/02/14 Stop Date: 11/02/14 Status: Completed Cipro 500 mg oral tablet 500 mg=1 tab, PO, Q12H, X 7 day, # 14 tab, 0 Refill(s) Start Date: 11/04/14 Stop Date: 11/11/14 Status: Ordered Colace 100 mg oral capsule 100 mg, 1 cap, Route: PO, Drug form: CAP, BID, Dosing Weight 88.636, kg, PRN as needed for constipation, Start date: 11/01/14 10:42:00, Duration: 30 day, Stop d ate: 12/01/14 10:41:00 Notes: (Same as: Colace) (Do Not Crush) Start Date: 11/01/14 Stop Date: 11/04/14 Status: Discontinued Dilaudid 0.5 mg, Route: IVP, ONCE, Dosing Weight 88.636, kg, Priority: STAT, Start date: 11/02/14 14:36:00, Stop date: 11/02/14 14:36:00 Start Date: 11/02/14 Stop Date: 11/02/14 Status: Completed Dilaudid 0.5 mg, Route: IVP, ONCE, Dosing Weight 88.636, kg, Priority: STAT, Start date: 11/02/14 14:38:00, Stop date: 11/02/14 14:38:00 Start Date: 11/02/14 Stop Date: 11/02/14 Status: Completed Dilaudid 1 mg, 1 mL, Route: IVP, Drug form: INJ, Q3H, Dosing Weight 88.636, kg, PRN Pain Score 7-10, Start date: 11/01/14 14:56:00, Duration: 30 day, Stop date: 12/01/14 14:55:00 Start Date: 11/01/14 Stop Date: 11/04/14 Status: Discontinued docusate 100 mg, Route: PO, BID, Dosing Weight 88.636, kg, PRN Constipation, Start date: 11/01/14 10:47:00, Duration: 30 day, Stop date: 12/01/14 10:46:00 Start Date: 11/01/14 Stop Date: 11/01/14 Status: Deleted Duragesic-25 1 patch, Route: TOP, Drug Form: ERFILM, Q72H, Start date: 11/04/14 10:00:00, Dur ation: 30 day, Stop date: 12/01/14 10:00:00 Notes: (Same as: Duragesic)Check for product integrity. Apply to intact skin"Re move old patch before application of new patch" Start Date: 11/04/14 Stop Date: 11/04/14 Status: Discontinued Duragesic-25 1 patch, Route: TOP, Drug Form: ERFILM, Q72H, Start date: 11/01/14 15:00:00, Dur ation: 30 day, Stop date: 11/28/14 15:00:00 Notes: (Same as: Duragesic)Check for product integrity. Apply to intact skin"Re move old patch before application of new patch" Start Date: 11/01/14 Stop Date: 11/04/14 Status: Discontinued Duragesic-50 1 patch, Route: TOP, Dosing Weight 88.636, kg, Q72H, Start date: 11/04/14 14:00: 00, Duration: 30 day, Stop date: 12/01/14 14:00:00 Start Date: 11/04/14 Stop Date: 11/04/14 Status: Discontinued Exparel 20 mL, Route: InFILtration(local), Drug Form: INJ, Dosing Weight 88.636, kg, ONC ALL, For Hemorrhoidectomy, Start date: 11/02/14 12:00:00, Duration: 1 day, Stop date: 11/03/14 11:59:00 Notes: (Same as: Exparel) NOT FOR IV use Postoperative analgesia: Infi ltration (local): Dose is based on surgical site and volume required to cover th e area (in general, the maximum total dose is 266 mg).Bunionectomy: 7 mL into th e tissues surrounding the osteotomy and 1 mL into the subcutaneous tissue of the surgical site (total dose=8 mL [106 mg])Hemorrhoidectomy: 30 mL (20 mL vial dil uted with 10 mL NS) divided and administered as 6 injections of 5 mL each (total dose=30 mL [266 mg]) Start Date: 11/02/14 Stop Date: 11/04/14 Status: Discontinued famotidine 20 mg, 1 tab, Route: PO, Drug form: TAB, Q12H, Dosing Weight 88.636, kg, Start d ate: 11/02/14 21:00:00, Duration: 30 day, Stop date: 12/02/14 9:00:00 Notes: (Same as: Pepcid) Start Date: 11/02/14 Stop Date: 11/04/14 Status: Discontinued fentaNYL 25 microgram, Route: TOP, Drug form: ERFILM, Q72H, Dosing Weight 88.636, kg, Sta rt date: 11/01/14 11:00:00, Duration: 30 day, Stop date: 11/28/14 11:00:00 Notes: (Same as: Duragesic)Check for product integrity. Apply to intact skin"Re move old patch before application of new patch" Start Date: 11/01/14 Stop Date: 11/01/14 Status: Discontinued fentaNYL 50 microgram, Route: IVP, ONCE, Dosing Weight 88.636, kg, Start date: 11/02/14 1 4:26:00, Stop date: 11/02/14 14:26:00 Start Date: 11/02/14 Stop Date: 11/02/14 Status: Completed fentaNYL 50 microgram, Route: IVP, ONCE, Dosing Weight 88.636, kg, Start date: 11/02/14 1 4:18:00, Stop date: 11/02/14 14:18:00 Start Date: 11/02/14 Stop Date: 11/02/14 Status: Completed fentaNYL 50 mcg/hr transdermal film, extended release 1 patch, TOP, Q72H, # 10 patch, 0 Refill(s), given to patient Start Date: 11/04/14 Status: Ordered Flagyl 500 mg oral tablet 500 mg=1 tab, PO, Q8H, X 7 day, # 21 tab, 0 Refill(s) Start Date: 11/04/14 Stop Date: 11/11/14 Status: Ordered fluticasone nasal 0.05 mg/inh spray 50 microgram, Route: NASAL, Drug Form: SPRY, Dosing Weight 88.636, kg, Daily, St art date: 11/02/14 9:00:00, Duration: 30 day, Stop date: 12/01/14 9:00:00 Notes: (Same as: Flonase) Start Date: 11/02/14 Stop Date: 11/04/14 Status: Discontinued gabapentin 600 mg oral tablet 600 mg, 2 cap, Route: PO, Drug form: CAP, TID, Dosing Weight 88.636, kg, Start d ate: 11/01/14 13:00:00, Duration: 30 day, Stop date: 12/01/14 9:00:00 Notes: (Same as: Neurontin) Start Date: 11/01/14 Stop Date: 11/04/14 Status: Discontinued hydromorphone 1 mg, 1 mL, Route: IVP, Drug form: INJ, Q3H, Dosing Weight 88.636, kg, PRN Pain Score 4-6, Start date: 11/02/14 13:28:00, Duration: 30 day, Stop date: 12/02/14 13:27:00 Start Date: 11/02/14 Stop Date: 11/04/14 Status: Discontinued Lactated Ringers IV 500 mL 500 mL, Rate: 25 ml/hr, Infuse over: 20 hr, Route: IV, Dosing Weight 88.636 kg, Total Volume: 500, Start date: 11/02/14 11:41:00, Duration: 30 day, Stop date: 0 12/02/14 11:40:00 Start Date: 11/02/14 Stop Date: 11/02/14 Status: Discontinued levothyroxine 50 microgram, 1 tab, Route: PO, Drug form: TAB, Q630AM, Dosing Weight 88.636, kg , Start date: 11/02/14 6:30:00, Duration: 30 day, Stop date: 12/01/14 6:30:00 Notes: Take 1 hour before or 2 hours after meal; Enteral feeds may interefere wi th the absorption of this medication.(Same as:Levothroid, Synthroid) Start Date: 11/02/14 Stop Date: 11/04/14 Status: Discontinued levothyroxine 75 mcg (0.075 mg) oral tablet 75 microgram=1 tab, PO, Daily, # 30 tab, 0 Refill(s) Start Date: 11/04/14 Status: Ordered meropenem + Sodium Chloride 0.9% IV 100 mL 500 mg, Route: IVPB, ABXQ6H, Dosing Weight 88.636, kg, CrCL=26 -49 ml/min, Exten ded infusion, infuse over 3 hours, Start date: 11/03/14 11:00:00, Duration: 30 day, Stop date: 12/03/14 5:00:00 Notes: Same as Merrem MEDICATION WASTE Product Size: 500 mgProduct Wast ed: ___ mg Start Date: 11/03/14 Stop Date: 11/04/14 Status: Discontinued metaxalone 800 mg, 1 tab, Route: PO, Drug form: TAB, BID, Dosing Weight 88.636, kg, Start d ate: 11/01/14 17:00:00, Duration: 30 day, Stop date: 12/01/14 9:00:00 Notes: (Same as: Skelaxin) Start Date: 11/01/14 Stop Date: 11/04/14 Status: Discontinued metaxalone 800 mg, PO, BID, 0 Refill(s) Start Date: 11/01/14 Status: Ordered morphine Sulfate 4 mg, 2 mL, Route: IVP, Drug form: INJ, ONCE, Dosing Weight 88.636, kg, Priority : STAT, Start date: 11/01/14 7:35:00, Stop date: 11/01/14 7:35:00 Notes: (Same as:MORPhine Sulfate) Start Date: 11/01/14 Stop Date: 11/01/14 Status: Completed nicotine Route: TOP, Drug form: ERFILM, Q24H, Dosing Weight 88.636, kg, Start date: 11/01 13:00:00, Duration: 30 day, Stop date: 11/30/14 13:00:00 Notes: (Same as: Habitrol)"Remove old patch before application of new patch" Start Date: 11/01/14 Stop Date: 11/04/14 Status: Discontinued [place] 10/325 oral tablet 1 tab, PO, Q4H, PRN for pain, X 10 day, # 60 tab, 0 Refill(s), given to patient Start Date: 11/04/14 Stop Date: 11/14/14 Status: Ordered NS + KCL 20mEq/L 1000ml (Premix) 1,000 mL 1,000 mL, Rate: 60 ml/hr, Infuse over: 16.7 hr, Route: IV, Dosing Weight 88.636 kg, Total Volume: 1,000, Start date: 11/02/14 13:28:00, Duration: 30 day, Stop d ate: 12/02/14 13:27:00 Notes: PREMIX IV - Do Not Alter Start Date: 11/02/14 Stop Date: 11/04/14 Status: Discontinued ONAbotulinumtoxinA 100 unit, Route: INJ, Drug form: INJ, ONCE, Dosing Weight 88.636, kg, Start date : 11/02/14 12:04:00, Stop date: 11/02/14 12:04:00 Notes: "TO BE RECONSTITUTED AND ADMINISTERED ONLY BY A PHYSICIAN"Reconstitute wi th preservative free NS only. Stability=4 hours after reconstitution. (Same As: Botox) Start Date: 11/02/14 Stop Date: 11/02/14 Status: Completed ondansetron 4 mg, 2 mL, Route: IVP, Drug form: INJ, Q6H, Dosing Weight 88.636, kg, PRN Nause a & Vomiting, Start date: 11/02/14 13:28:00, Duration: 30 day, Stop date: 12/02/14 13:27:00 Notes: (Same as: Zofrshabnam) MEDICATION WASTE Product Size: 4 mgProduct Was tamara: ___ mg Start Date: 11/02/14 Stop Date: 11/04/14 Status: Discontinued pantoprazole 40 mg, 1 tab, Route: PO, Drug form: ECTAB, Before Dinner, Dosing Weight 88.636, kg, Start date: 11/03/14 16:30:00, Duration: 30 day, Stop date: 12/02/14 16:30:0 0 Notes: Tablet should not be chewed or crushed.(Same as: Protonix) Start Date: 11/03/14 Stop Date: 11/02/14 Status: Canceled pantoprazole 40 mg, 1 tab, Route: PO, Drug form: ECTAB, Daily, Dosing Weight 88.636, kg, Star t date: 11/03/14 9:00:00, Duration: 30 day, Stop date: 12/02/14 9:00:00 Notes: Tablet should not be chewed or crushed.(Same as: Protonix) Start Date: 11/03/14 Stop Date: 11/04/14 Status: Discontinued pantoprazole 40 mg, 1 tab, Route: PO, Drug form: ECTAB, Before Dinner, Dosing Weight 88.636, kg, Start date: 11/01/14 16:30:00, Duration: 30 day, Stop date: 11/30/14 16:30:0 0 Notes: Tablet should not be chewed or crushed.(Same as: Protonix) Start Date: 11/01/14 Stop Date: 11/02/14 Status: Discontinued Phenergan + Sodium Chloride 0.9% IV 50 mL 12.5 mg, 0.5 mL, Route: IVPB, TID, Dosing Weight 88.636, kg, PRN as needed for n ausea/vomiting, Priority: STAT, Start date: 11/01/14 10:49:00, Duration: 30 day, Stop date: 12/01/14 10:48:00 Notes: Do not give IV push. (Same as: Phenergan) Start Date: 11/01/14 Stop Date: 11/04/14 Status: Discontinued Phenergan + Sodium Chloride 0.9% IV 50 mL 12.5 mg, 0.5 mL, Route: IVPB, ONCE, Dosing Weight 88.636, kg, Priority: STAT, St art date: 11/01/14 9:21:00, Stop date: 11/01/14 9:21:00 Notes: Do not give IV push. (Same as: Phenergan) Start Date: 11/01/14 Stop Date: 11/01/14 Status: Completed promethazine 25 mg, 1 tab, Route: PO, Drug form: TAB, Q6H, Dosing Weight 88.636, kg, PRN as n eeded for nausea/vomiting, Start date: 11/01/14 10:43:00, Duration: 30 day, Stop date: 12/01/14 10:42:00 Notes: (Same as: Phenergan) Start Date: 11/01/14 Stop Date: 11/04/14 Status: Discontinued QUEtiapine 100 mg, PO, Bedtime, 0 Refill(s) Start Date: 11/01/14 Status: Ordered QUEtiapine 100 mg, 1 tab, Route: PO, Drug form: TAB, Bedtime, Dosing Weight 88.636, kg, Sta rt date: 11/01/14 21:00:00, Duration: 30 day, Stop date: 11/30/14 21:00:00 Notes: (Same as: SEROquel) Start Date: 11/01/14 Stop Date: 11/04/14 Status: Discontinued Saline Flush 0.9% 10 mL, Route: IVP, Drug Form: INJ, Dosing Weight 88.636, kg, PRN, PRN Line Flush , Start date: 11/01/14 7:35:00, Duration: 30 day, Stop date: 12/01/14 7:34:00 Notes: (Same as: BD Posiflush) Start Date: 11/01/14 Stop Date: 11/04/14 Status: Discontinued Sodium Chloride 0.9% (Bolus) IV 1,000 mL, 1000 ml/hr, Infuse Over: 1 hr, Route: IV, 1,000, Drug form: INJ, ONCE, Priority: STAT, Dosing Weight 88.636 kg, Start date: 11/01/14 7:35:00, Duration: 1 doses or times, Stop date: 11/01/14 7:35:00 Start Date: 11/01/14 Stop Date: 11/01/14 Status: Completed temazepam 15 mg, 1 cap, Route: PO, Drug form: CAP, Bedtime, Dosing Weight 88.636, kg, PRN Sleep, Start date: 11/01/14 17:24:00, Duration: 30 day, Stop date: 12/01/14 17:2 3:00 Notes: (Same As: Restoril) Start Date: 11/01/14 Stop Date: 11/04/14 Status: Discontinued temazepam 15 mg oral capsule 15 mg=1 cap, PO, Bedtime, PRN Sleep, # 30 cap, 0 Refill(s) Start Date: 11/04/14 Stop Date: 12/05/14 Status: Ordered Tylenol 650 mg, 2 tab, Route: PO, Drug form: TAB, TID, Dosing Weight 88.636, kg, PRN For Temp > 100.4 F, Start date: 11/03/14 10:09:00, Duration: 30 day, Stop date: 12/03/14 10:08:00, fever Notes: Do not exceed 4 gm/day. (Same as: Tylenol) Start Date: 11/03/14 Stop Date: 11/04/14 Status: Discontinued Xanax 2 mg oral tablet 2 mg, 2 tab, Route: PO, Drug form: TAB, TID, Dosing Weight 88.636, kg, Start johnny e: 11/01/14 13:00:00, Duration: 30 day, Stop date: 12/01/14 9:00:00 Notes: With food or milk(Same as: Xanax) Start Date: 11/01/14 Stop Date: 11/04/14 Status: Discontinued Xanax 2 mg oral tablet 2 mg=1 tab, PO, TID, 0 Refill(s) Start Date: 11/01/14 Status: Ordered Results BLOOD BANK RESULTS 1 2 3 Most recent to oldest [Reference Range]: B POS *Unknown* (11/01/14 7:32 AM) ABO/Rh Negative (11/01/14 7:32 AM) Antibody Scrn ELECTROLYTES 1 2 3 Most recent to oldest [Reference Range]: 139 mEq/L (11/03/14 5:02 AM) 140 mEq/L (11/01/14 7:32 AM) Sodium Lvl [135-145 mEq/L] 3.6 mEq/L (11/03/14 5:02 AM) 3.4 mEq/L *LOW* (11/01/14 7:32 AM) Potassium Lvl [3.5-5.1 mEq/L] 104 mEq/L (11/03/14 5:02 AM) 106 mEq/L (11/01/14 7:32 AM) Chloride Lvl [95-109 mEq/L] 28 mEq/L (11/03/14 5:02 AM) 26 mEq/L (11/01/14 7:32 AM) CO2 [24-32 mEq/L] 10.6 mEq/L (11/03/14 5:02 AM) 11.4 mEq/L (11/01/14 7:32 AM) AGAP [10.0-20.0 mEq/L] CHEM PANEL 1 2 3 Most recent to oldest [Reference Range]: 0.9 mg/dL (11/03/14 5:02 AM) 1.0 mg/dL (11/01/14 7:32 AM) Creatinine Lvl [0.5-1.4 mg/dL] 106 mL/min/1.73m2 1 *NA* (11/03/14 5:02 AM) 93 mL/min/1.73m2 2 *NA* (11/01/14 7:32 AM) eGFR 8 mg/dL (11/03/14 5:02 AM) 12 mg/dL (11/01/14 7:32 AM) BUN [7-22 mg/dL] 12 (11/01/14 7:32 AM) B/C Ratio [6-25] 98 mg/dL 3 (11/03/14 5:02 AM) 90 mg/dL 4 (11/01/14 7:32 AM) Glucose Lvl [70-99 mg/dL] 7.2 g/dL (7/6/15 7:32 AM) Total Protein [6.4-8.4 g/dL] 3.5 g/dL (11/01/14 7:32 AM) Albumin Lvl [3.5-5.0 g/dL] 3.7 g/dL (11/01/14 7:32 AM) Globulin [2.0-4.0 g/dL] 0.9 (11/01/14 7:32 AM) A/G Ratio [0.7-1.6] 8.8 mg/dL (11/03/14 5:02 AM) 9.1 mg/dL (11/01/14 7:32 AM) Calcium Lvl [8.5-10.5 mg/dL] 3.6 mg/dL (11/01/14 10:40 PM) Phosphorus [2.5-4.5 mg/dL] 1.9 mg/dL (11/01/14 10:40 PM) Magnesium Lvl [1.8-2.4 mg/dL] 16 unit/L (11/01/14 7:32 AM) ALT [0-65 unit/L] 16 unit/L (11/01/14 7:32 AM) AST [0-37 unit/L] 111 unit/L (11/01/14 7:32 AM) Alk Phos [39-136 unit/L] 0.2 mg/dL (11/01/14 7:32 AM) Bili Total [0.2-1.3 mg/dL] 1Result Comment: [...] values reflect the clinical guidelines of the [place] [employer]. 4Interpretive Data: Adult reference range values reflect the clinical guidelines of the [place] [employer]. LIPIDS 1 2 3 Most recent to oldest [Reference Range]: 7.24 (11/02/14 5:47 AM) CHD Risk [4.00-7.30] 181 mg/dL (11/02/14 5:47 AM) Chol [<=199 mg/dL] 175 mg/dL *HI* (11/02/14 5:47 AM) Trig [<=149 mg/dL] 25 mg/dL *LOW* (11/02/14 5:47 AM) HDL [>=61 mg/dL] 121 mg/dL *HI* (11/02/14 5:47 AM) LDL (Calculated) [<=99 mg/dL] 35 *NA* (11/02/14 5:47 AM) VLDL THYROID PANEL 1 2 3 Most recent to oldest [Reference Range]: 33 % (11/02/14 5:47 AM) T3 Uptake [31-39 %] 6.1 ug/dl (11/02/14 5:47 AM) T4 [4.7-13.3 ug/dl] 2.0 *NA* (11/02/14 5:47 AM) FTI 11.200 uIU/mL *HI* (11/02/14 5:47 AM) TSH [0.360-3.740 uIU/mL] URINE AND STOOL 1 2 3 Most recent to oldest [Reference Range]: Clear (11/01/14 11:35 PM) UA Turbidity [Clear] Ltyellow *NA* (11/01/14 11:35 PM) UA Color 6.0 (11/01/14 11:35 PM) UA pH [5.0-8.0] >=1.050 *ABN* (11/01/14 11:35 PM) UA Spec Grav [<=1.030] Negative mg/dL *NA* (11/01/14 11:35 PM) UA Glucose [Negative mg/dL] Small *ABN* (11/01/14 11:35 PM) UA Blood [Negative] Negative mg/dL *NA* (11/01/14 11:35 PM) UA Ketones [Negative mg/dL] Negative mg/dL (11/01/14 11:35 PM) UA Protein [Negative mg/dL] <=1.0 mg/dL *NA* (11/01/14 11:35 PM) UA Urobilinogen [0.1-1.0 mg/dL] Negative *NA* (11/01/14 11:35 PM) UA Bili [Negative] Negative (11/01/14 11:35 PM) UA Leuk Est [Negative] Negative (11/01/14 11:35 PM) UA Nitrite [Negative] 1 /HPF (11/01/14 11:35 PM) UA WBC [0-5 /HPF] 1 /HPF (11/01/14 11:35 PM) UA RBC [0-2 /HPF] None Seen *NA* (11/01/14 11:35 PM) UA Sq Epi HEMATOLOGY 1 2 3 Most recent to oldest [Reference Range]: 8.4 K/CMM (11/04/14 5:06 AM) 6.6 K/CMM (11/02/14 5:47 AM) 10.0 K/CMM (11/01/14 7:32 AM) WBC [3.7-10.4 K/CMM] 3.95 M/CMM *LOW* (11/04/14 5:06 AM) 4.26 M/CMM *LOW* (11/02/14 5:47 AM) 4.36 M/CMM *LOW* (11/01/14 7:32 AM) RBC [4.70-6.10 M/CMM] 11.3 g/dL *LOW* (11/04/14 5:06 AM) 12.0 g/dL *LOW* (11/03/14 5:02 AM) 12.3 g/dL *LOW* (11/02/14:47 AM) Hgb [14.0-18.0 g/dL] 34.0 % *LOW* (11/04/14 5:06 AM) 36.0 % *LOW* (11/03/14 5:02 AM) 36.7 % *LOW* (11/02/1447 AM) Hct [42.0-54.0 %] 86.0 fL (11/04/14:06 AM) 86.1 fL (11/02/1447 AM) 85.8 fL (11/01/14:32 AM) MCV [80.0-94.0 fL] 28.5 pg (11/04/14:06 AM) 28.8 pg (11/02/1447 AM) 28.9 pg (11/01/14:32 AM) MCH [27.0-31.0 pg] 33.1 g/dL (11/04/14 5:06 AM) 33.5 g/dL (11/02/1447 AM) 33.7 g/dL (11/01/14 7:32 AM) MCHC [32.0-36.0 g/dL] 15.1 % *HI* (11/04/14:06 AM) 15.1 % *HI* (11/02/14:47 AM) 15.5 % *HI* (11/01/14:32 AM) RDW [11.5-14.5 %] 145 K/CMM (11/04/14 5:06 AM) 160 K/CMM (11/02/14:47 AM) 189 K/CMM (11/01/14 7:32 AM) Platelet [133-450 K/CMM] 10.0 fL (11/04/14 5:06 AM) 10.2 fL (11/02/14:47 AM) 10.6 fL *HI* (11/01/14 7:32 AM) MPV [7.4-10.4 fL] 61.1 % (11/04/14 5:06 AM) 50.5 % (11/02/14 5:47 AM) 66.2 % (11/01/14 7:32 AM) Segs [45.0-75.0 %] 22.6 % (11/04/14 5:06 AM) 32.9 % (11/02/14 5:47 AM) 18.2 % *LOW* (11/01/14 7:32 AM) Lymphocytes [20.0-40.0 %] 9.7 % (11/04/14 5:06 AM) 8.7 % (11/02/14 5:47 AM) 8.5 % (11/01/14 7:32 AM) Monocytes [2.0-12.0 %] 5.9 % *HI* (11/04/14 5:06 AM) 7.3 % *HI* (11/02/14 5:47 AM) 6.4 % *HI* (11/01/14 7:32 AM) Eosinophils [0.0-4.0 %] 0.7 % (11/04/14 5:06 AM) 0.6 % (11/02/14 5:47 AM) 0.7 % (11/01/14 7:32 AM) Basophils [0.0-1.0 %] 5.1 K/CMM (11/04/14 5:06 AM) 3.3 K/CMM (11/02/14 5:47 AM) 6.7 K/CMM (11/01/14 7:32 AM) Segs-Bands # [1.5-8.1 K/CMM] 1.9 K/CMM (11/04/14 5:06 AM) 2.2 K/CMM (11/02/14 5:47 AM) 1.8 K/CMM (11/01/14 7:32 AM) Lymphocytes # [1.0-5.5 K/CMM] 0.8 K/CMM (11/04/14 5:06 AM) 0.6 K/CMM (11/02/14 5:47 AM) 0.9 K/CMM *HI* (11/01/14 7:32 AM) Monocytes # [0.0-0.8 K/CMM] 0.5 K/CMM (11/04/14 5:06 AM) 0.5 K/CMM (11/02/14 5:47 AM) 0.6 K/CMM *HI* (11/01/14 7:32 AM) Eosinophils # [0.0-0.5 K/CMM] 0.1 K/CMM (11/04/14 5:06 AM) 0.1 K/CMM (11/01/14 7:32 AM) Basophils # [0.0-0.2 K/CMM] 13.4 seconds (11/02/14 5:47 AM) PT [12.0-14.7 seconds] 1.02 5 (11/02/14 5:47 AM) INR [0.85-1.17] 31.8 seconds 6 (11/01/14 7:32 AM) PTT [22.9-35.8 seconds] 5Interpretive Data: RECOMMENDED RANGES FOR PROTIME INR: 2.0-3.0 for most medical and surgical thromboembolic states. 2.5-3.5 for artificial heart valves and recurrent embolism. INR SHOULD BE USED ONLY FOR PATIENTS ON STABLE ANTICOAGULANT THERAPY. 6Interpretive Data: Heparin Therapeutic Range: 57 - [...] Plan Extracted from: Title: Clinical Document Author: Ping Corrales Date: 11/04/14 Progress Note - Daily [facility] Completed: Oct, 21:34 by Ping Corrales RM: 89 - 1D, SE [id number] (: 1975) M Attending: Randell Ellison MDPhone: Service: Internal Medicine Reason for Admission: RECTAL PAIN, FEVER Working DRG: Anal & stomal procedures w CC Code status: Full Code [Ordered]Current diet: Isolation: None Documented Allergies: Other Food Allergy(coconut), Zofran, traMADol, Nelson C, Ultram, naproxen, Toradol, penicillins SUBJECTIVE Pt seen and examined. Feeling much better at this time. Denies fever, chills, n/v/d/c, abdominal pain or dysuria. OBJECTIVE 24hr Labs 11/04 0506 WBC8.4 RBC3.95 L Hgb11.3 L Hct34.0 L MCV86.0 MCH28.5 MCHC33.1 RDW15.1 H Swjhfdrm452 MPV10.0 Segs61.1 Monocytes9.7 Pyafzyymgys54.6 Eosinophils5.9 H Basophils0.7 Segs-Bands #5.1 Lymphocytes #1.9 Monocytes #0.8 Eosinophils #0.5 Basophils #0.1 Mendoza still necessary (Yes/No): Line still necessary (Yes/No): VitalsTmp(F)[id number] 11/04 13:05----28148/61-------- 11/04 11:4798.63291/5416------ 11/04 09:26 1694 21% 11/04 08:0498.457866/717151--- 11/04 03:5398.872940/7316------ 24 Hr Tmax: 98.8F (37.11c) at 11/04 11:47Vital Signs are the last 5 in the past 48 hours. DateWt(kg)Wt(lb)Ht(cm)Ht(in)Method 11/04 88.64 195.00Measured 11/01 (initial) 88.64 195.00Measured 11/01172.72 68.00Stated I&ORecordInOutBal 11/0424hr Tot 910 0 910 10/823hr Tot 2937 0 2937 Medications (0) Active Scheduled Meds: None Unscheduled Meds: None PRN Meds: None One Time Meds: None Continuous Infusions: None ASSESSMENT & EXAM GENERAL APPEARANCE: Awake, alert, oriented x 3. Resting comfortably, pain controlled at this time. HEENT: Normocephalic and atraumatic. Pupils equal, reactive to light. Conjunctiva is clear. NECK: Supple. No jugular venous distention. LUNGS: Clear to auscultation bilaterally without rales, rhonchi or wheezes. CARDIOVASCULAR: S1, S2, regular rate and rhythm. ABDOMEN: Soft, nondistended, nontender. Positive bowel sounds. EXTREMITIES: No cyanosis, clubbing, or edema noted. MUSCULOSKELETAL: Moving all extremities. SKIN: Warm and dry. No rashes noted. PLAN & TREATMENT d/c home today increase levothyroxine pain meds per pain management DIAGNOSES & PROBLEMS 1. Rectal bleeding. 2. Rectal pain. 3. Anxiety. 4. Chronic back pain. 5. Hypothyroidism. 6. History of gastroesophageal reflux diseas Ready for Discharge (Yes/No)? TEACHING ATTESTATION Extracted from: Title: Clinical Document Author: Denice Vasquez MD Date: 11/02/14 PREOPERATIVE DIAGNOSIS: Rectal bleeding internal hemorrhoid with complication. POSTOPERATIVE DIAGNOSIS: Rectal bleeding internal hemorrhoid with complication. PROCEDURE Transanal hemorrhoidal dearterialization. SURGEON: Dr. Vasquez ENGINEERING EXECUTIVE: None ANESTHESIA: General IV FLUIDS: 250 mL URINE OUTPUT: No M[place]za. ESTIMATED BLOOD LOSS: 20 cc COMPLICATIONS: None FINDINGS: Grade III internal hemorrhoids with minor active bleeding was noted. Right lateral Rubber band ligation site placed by GI is healing well. Rubber band removed. DISPOSITION: Tolerated the procedure well, extubated in the operating room and transferred to postop anesthesia care unit in stable hemodynamic condition. COUNTS: Needle, sponge and correct x 2. INDICATIONS FOR PROCEDURE: The patient is a 39-year-old man who presents for a transanal hemorrhoidal dearterialization procedure for chronically prolapsing and bleeding internal hemorrhoids. A previously placed rubber band by GI service did not improve his symptoms as he still has bleeding and anal pain. He reports prolapsing internal hemorrhoids. Informed consent was obtained. All questions were answered to his satisfaction. PROCEDURE IN DETAIL: The patient was brought to the operating room, placed on the table in supine position. General endotracheal anesthesia was induced successfully. Subsequently, the patient was placed on candy canes in the lithotomy position and the perineum was prepped and draped in usual standard sterile fashion. Using the transanal hemorrhoidal dearterialization kit, we identified Grade III internal hemorrhoids with minor active bleeding. A Right lateral Rubber band ligation site placed by GI was healing well. The Rubber band was removed and minor devitalized internal hemorrhoidal tissue was sharply debrided and passed to pathology. We idendified five arterial signals at 1:00, 3:00, 6:00, 7:00 and 9:00 respectively. At 4 cm above the dentate line, we placed a 2-0 Vicryl in a [id number] fashion under Doppler ultrasound guidance and confirmed cessation of the arterial signal in each side. Subsequently, we ran each suture over the prolapsing internal hemorrhoidal mucosa up to a centimeter above the dentate line and incorporating the friable internal hemorrhoids with bleeding. We retracted each hemorrhoid back to the distal rectum and performed a hemorrhoidopexy and mucopexy and confirmed complete hemostasis and a mucopexy of each hemorrhoid. Surgicel was left in place. One vial of Exparel was injected for local anesthesia. The Exparel was diluted with 10 mL of normal saline. The procedure was completed. Surgicel was left in place. Extracted from: Title: Clinical Document Author: Aby Patton Date: 11/01/14 COLON & RECTAL SURGERY CONSULT: Denice Vasquez MD, FACS, FASCRS Attending: Randell Ellison MDPhone: Service: Internal Medicine Code status: Full Code [Ordered] Reason for Admission: RECTAL BLEEDING Working DRG: None Documented Isolation: None Documented Consulting Physicians: Devendra Dee MDOffice: MSO: [id number]: Gastroenterology Denice Vasquez MDOffice: MSO: [id number]: Colon and Rectal Surgery DATE OF CONSULT: 11/01/14 REFERRING PHYSICIAN: Dr. Dee REASON FOR CONSULT: REctal pain HPI: The pt is a 39 year old male who presented to the ER w/ exquisite rectal pain x12 hours. He reports a hx of intermittent rectal pain and bleeding x years in which he tried OTC and Rx creams w/o relief in sxs. He was recently seen by GI- Dr. Kafrouni at which time the pt underwent a colonoscopy-results unknown, as well as RBL of internal hemorrhoids last week. He states after the RBL his sxs improved. However, at ~11pm last night he developed acute rectal pain to the point he cannot sit/stand/walk as well as BRBPR and dark blood filling up the toilet water. Denies constipation, diarrhea, other significant medical hx. He currently smokes a ppd x~30 years. He also has a hx of chronic back pain, and currently takes [place] and has a fentanyl patch at home. Per the nurse's report, he is not currently taking either of these medications ROS: General: Denies chills, fever, weight loss, weight gain, loss of appetite Eyes: Denies vision loss, retina problems Ears/Nose/Throat: Denies ringing in ears, hearing problems, congestion, dental problems, hoarseness, difficulty swallowing, recent sore throat Cardiovascular: Denies irregular heartbeat, chest pain, heart murmur, abnormal heart valve Pulmonary: Denies productive cough with sputum, shortness of breath, wheezing Genitourinary: Denies frequent urination, blood in urine, urinary incontinence, difficulty urinating, pneumaturia, fecaluria, vaginal discharge Abdominal/GI: bloody or dark stools; Denies nausea/vomiting, diarrhea, constipation, indigestion, abdominal pain, incontinence of stool, mucus with stools Musculoskeletal: Denies back pain, joint pain, joint swelling Skin: Denies skin rashes, skin itching Neurologic: Denies numbness, weakness, headaches, memory loss, seizures, fainting/blackouts, migraines Psychiatric: Denies anxiety, depression, suicidal thoughts Endocrine: Denies heat/cold intolerance, excessive hunger, excessive thirst, excessive urination, hormonal abnormalities Liver: Denies jaundice Hematologic/Lymphatic: Denies abnormal bleeding, abnormal bruising, enlarged lymph glands PMH: as per HPI anxiety/panic attacks OCD PAST SURGICAL HISTORY: as per HPI SOCIAL HISTORY: denies alcohol or illicit drug use currently a smoker and trying to quit FAMILY HISTORY: denies history of colon cancer Allergies: Other Food Allergy(coconut), Zofran, traMADol, Nelson C, Ultram, naproxen, Toradol, penicillins MEDICATIONS: See JUN EXAM: VitalsTmp(F)[id number] 11/01 14:49----[id number]--- 11/01 11:33----[id number]--- 11/01 09:28----[id number]--- 11/01 06:[id number]--- 24 Hr Tmax: 97.9F (36.61c) at 11/01 06:47Vital Signs are the last 5 in the past 48 hours. Labs (Last four charted values) WBC 10.0(NOV 01) Hgb L 12.6(NOV 01) Hct L 37.4(NOV 01) Plt 189(NOV 01) Na 140(NOV 01) K L 3.4(NOV 01) CO2 26(NOV 01) Cl 106(NOV 01) Cr 1.0(NOV 01) BUN 12(NOV 01) Glucose Random 90(NOV 01) Ca 9.1(NOV 01) PTT 31.8(NOV 01)I&ORecordInOutBal 10/623hr Tot 1060 0 1060 10/523hr Tot 0 0 0 IMAGING: PHYSICAL EXAM: General: Well developed, well nourished, in no acute distress. Head & Neck: Normocephalic, neck supple, no palpable thyroid masses. Eyes: Extra ocular muscles intact, sclera anicteric, pupils within normal limits. Ear, Nose, & Throat: No abnormalities noted. Genitourinary: Normal genitalia. Extremities: Normal muscle tone and range of motion; no cyanosis or tenderness. Skin: Normal color, turgor, no rash or cyanosis. Lymphatic: No palpable lymph nodes. Neurologic: Normal sensation and strength, normal gait and speech, moves all extremities. Psychiatric: Alert and oriented, normal judgment, mood and affect. Abdomen is soft nontender in all quadrants, nondistended, no rebound, guarding, or peritonitis Anorectal: Inspection and anoscopy at the bedside reveals old dark blood at the perianal skin verge; no evidence of prolapsing or thrombosed external hemorrhoids, no evidence of thrombosed internal hemorrhoids, no evidence external fistulous orifice or drainage, or fissure. However. the pt was exquisitely tender during the exam and the exam was therefore limited due to pain DIAGNOSES: rectal pain rectal bleeding ASSESSMENT AND PLAN: No evidence of thrombosed external hemorrhoids, fistula, abscess, or fissure or thrombosed internal hemorrhoids at this time. However, the pt was exquisitely tender during the exam today thereby limiting a more thorough exam. Recommend admission w/ IV analgesics as directed, NPO after midnight. Will attempt examination at the bedside tomorrow. If he cannot tolerate an exam, he understands he will likely need to undergo examination under anesthesia, possible ligation of internal hemorrhoids, possible removal of rubber band (as this could also be contributing to his pain), and all other indicated pr ocedures. recommend ct pelvis w/ po/iv contrast to r/o perirectal abscess all questions were answered to the pt's satisfaction and he agrees with the plan. will ctn to monitor the pt was also seen by Dr. John Rodriguez, who is covering for Dr. Vasquez, and agrees with the plan total exam, coordination of care >45 minutes w/ 50% spent in education of the patient ATTENDING NOTE: Patient seen and examined I have reviewed Ms. Aby patton's note and agree with her assessment and plan Plan re evaluation with examine under anesthesia if pain level remains high
--- OUTSIDE RECORDS SUMMARY | 2018-02-27 18:12 | XMS REPORT | Summary of Care ---
Author Author [facility] Organization [facility] Address Unknown Phone Unavailable Encounter OCTAVIO Navarro(SHAHNAZ) [id number] Date(s): 05/23/16 - 05/23/16 [facility] [address] [place] [address]- Discharge Disposition: Home or Self Care Attending Physician: Lenny Acosta MD Referring Physician: Lenny Acosta MD Vital Signs 1 2 3 Most recent to oldest [Reference Range]: 177.8 cm (05/21/16 4:57 PM) Height 95.5 DegF *LOW* (05/21/16 4:57 PM) Temperature Oral [96.4-99.1 DegF] 119/69 mmHg (05/23/16 11:45 AM) 128/84 mmHg (05/23/16 11:15 AM) 132/82 mmHg (05/23/16 11:00 AM) Blood Pressure [90-140/60-90 mmHg] 14 BRMIN (05/23/16 11:45 AM) 14 BRMIN (05/23/16 11:15 AM) 14 BRMIN (05/23/16 11:00 AM) Respiratory Rate [14-20 BRMIN] 82 bpm (05/21/16 4:57 PM) Peripheral Pulse Rate [60-100 bpm] 94.591 kg (05/21/16 4:57 PM) Weight 29.92 m2 (05/21/16 4:57 PM) Body Mass Index Problem List Condition Effective Dates Status Health Status Informant Back Active injuries(Confirmed)1 Chronic back Active pain(Confirmed) GERD Active (gastroesophageal reflux disease)(Confirmed) Hypothyroidism(Confi Active rmed) Kidney Resolved calculus(Confirmed) Neck Active injuries(Confirmed) Obesity(Confirmed) Active Psychiatric(Confirme Active d) Stent(Confirmed) Resolved 1Herniated disk Allergies, Adverse Reactions, Alerts Substance Reaction Severity Status naproxen Active Other Food Allergy coconut Active penicillins Active [place] C Active Toradol Active traMADol Active Ultram Active Zofran Active Medications albuterol 0.5% inhalation solution 2.5 mg, INHALATION, Q6H, PRN wheezing, # 20 ea, 0 Refill(s) Start Date: 05/21/16 Status: Ordered albuterol-ipratropium 2.5-0.5 mg inhalation solution 3 mL, Route: NEB, Dosing Weight 94.591, kg, ONCE, STAT, Start date: 05/23/16 8:5 5:00 [employer], Stop date: 05/23/16 8:55:00 [employer] Start Date: 05/23/16 Stop Date: 05/23/16 Status: Discontinued ANES acetaminophen 1,000 mg, Route: PO, Drug form: TAB, ONCE, Dosing Weight 94.591, kg, PRN Pain Sc ore 1-3, Start date: 05/23/16 10:10:00 [employer], Duration: 1 doses or times, Stop johnny e: Limited # of times Start Date: 05/23/16 Stop Date: 05/24/16 Status: Discontinued ANES diphenhydrAMINE 12.5 mg, Route: IVP, Drug form: INJ, Q6H, Dosing Weight 94.591, kg, PRN Itching, Start date: 05/23/16 10:10:00 [employer], Duration: 30 day, Stop date: 06/22/16 10:09: 00 [employer] Start Date: 05/23/16 Stop Date: 05/24/16 Status: Discontinued ANES esmolol 10 mg, Route: IVP, Q5Min, Dosing Weight 94.591, kg, PRN Other -See Comment, Star t date: 05/23/16 10:10:00 [employer], Duration: 5 doses or times, Stop date: Limited # of times Start Date: 05/23/16 Stop Date: 05/24/16 Status: Discontinued ANES flumazenil 0.2 mg, Route: IVP, PRN, Dosing Weight 94.591, kg, PRN Benzodiazepine Reversal, Initial dose, Start date: 05/23/16 10:10:00 [employer], Duration: 30 day, Stop date: 10:09:00 [employer] Start Date: 05/23/16 Stop Date: 05/24/16 Status: Discontinued ANES hydrALAZINE 10 mg, Route: IVP, Q20Min, Dosing Weight 94.591, kg, PRN Elevated BP, Start date : 05/23/16 10:10:00 [employer], Duration: 2 doses or times, Stop date: Limited # of romero es Start Date: 05/23/16 Stop Date: 05/24/16 Status: Discontinued ANES HYDROmorphone 0.5 mg, Route: IVP, Q5Min, Dosing Weight 94.591, kg, PRN Pain Score 7-10, Start date: 05/23/16 10:10:00 [employer], Duration: 4 doses or times, Stop date: Limited # of times Start Date: 05/23/16 Stop Date: 05/24/16 Status: Discontinued ANES labetalol 10 mg, Route: IVP, Q5Min, Dosing Weight 94.591, kg, PRN Elevated BP, Start date: 05/23/16 10:10:00 [employer], Duration: 5 doses or times, Stop date: Limited # of times Start Date: 05/23/16 Stop Date: 05/24/16 Status: Discontinued ANES meperidine 12.5 mg, Route: IVP, Q30Min, Dosing Weight 94.591, kg, PRN Other -See Comment, F or shivering, Start date: 05/23/16 10:10:00 [employer], Duration: 2 doses or times, Sto p date: Limited # of times Start Date: 05/23/16 Stop Date: 05/24/16 Status: Discontinued ANES naloxone 0.4 mg, Route: IVP, Q2MIN, Dosing Weight 94.591, kg, PRN Narcotic Reversal, Star t date: 05/23/16 10:10:00 [employer], Duration: 8 doses or times, Stop date: Limited # of times Start Date: 05/23/16 Stop Date: 05/24/16 Status: Discontinued ANES oxyCODONE 10 mg, Route: PO, Drug form: TAB, Q4H, Dosing Weight 94.591, kg, PRN Pain Score 7-10, Start date: 05/23/16 10:10:00 [employer], Duration: 30 day, Stop date: 06/22/16 1 0:09:00 [employer] Start Date: 05/23/16 Stop Date: 05/24/16 Status: Discontinued ANES oxyCODONE 5 mg, Route: PO, Drug form: TAB, Q4H, Dosing Weight 94.591, kg, PRN Pain Score 4 -6, Start date: 05/23/16 10:10:00 [employer], Duration: 30 day, Stop date: 06/22/16 10: 09:00 [employer] Start Date: 05/23/16 Stop Date: 05/24/16 Status: Discontinued ANES promethazine 6.25 mg, Route: IVPB, ONCE, Dosing Weight 94.591, kg, PRN Nausea & Vomiting, Start date: 05/23/16 10:10:00 [employer] Start Date: 05/23/16 Stop Date: 05/23/16 Status: Completed Breo Ellipta INHALATION, Daily, 0 Refill(s) Start Date: 05/21/16 Status: Ordered Cipro 400 mg, Route: IVPB, [id number], Dosing Weight 99.716, kg, Start date: 05/18/16 9:0 0:00 [employer], Duration: 30 day, Stop date: 06/16/16 21:00:00 [employer] Start Date: 05/18/16 Stop Date: 05/24/16 Status: Discontinued dexamethasone (ANES) Route: IV, Drug form: INJ, ONCE, Stop date: 05/23/16 9:56:00 [employer] Start Date: 05/23/16 Stop Date: 05/23/16 Status: Completed famotidine (ANES) Route: IV, Drug form: INJ, ONCE, Stop date: 05/23/16 9:56:00 [employer] Start Date: 05/23/16 Stop Date: 05/23/16 Status: Completed fentaNYL (ANES) Route: IV, Drug form: INJ, ONCE, Stop date: 05/23/16 10:01:00 [employer] Start Date: 05/23/16 Stop Date: 05/23/16 Status: Completed Lactated Ringers Injection IV 1000 mL 1,000 mL, Rate: 125 ml/hr, Infuse over: 8 hr, Route: IV, Dosing Weight 94.591 kg , Total Volume: 1,000, Start date: 05/23/16 10:10:00 [employer], Duration: 30 day, Stop date: 06/22/16 10:09:00 [employer] Start Date: 05/23/16 Stop Date: 05/24/16 Status: Discontinued Lactated Ringers Injection IV 1000 mL 1,000 mL, Rate: 25 ml/hr, Infuse over: 40 hr, Route: IV, Dosing Weight 94.591 kg , Total Volume: 1,000, Start date: 05/23/16 8:55:00 [employer], Duration: 30 day, Stop date: 06/22/16 8:54:00 [employer] Start Date: 05/23/16 Stop Date: 05/23/16 Status: Discontinued lidocaine (ANES) Route: IV, Drug form: INJ, ONCE, Stop date: 05/23/16 10:01:00 [employer] Start Date: 05/23/16 Stop Date: 05/23/16 Status: Completed LR 1000 mL INJ (ANES) Route: IV, Total Volume: 1,000, Start date: 05/23/16 9:05:00 [employer], Stop date: 10:05:00 [employer] Start Date: 05/23/16 Stop Date: 05/23/16 Status: Completed metoclopramide (ANES) Route: IV, Drug form: INJ, ONCE, Stop date: 05/23/16 9:56:00 [employer] Start Date: 05/23/16 Stop Date: 05/23/16 Status: Completed midazolam (ANES) Route: IV, Drug form: SOLN, ONCE, Stop date: 05/23/16 9:46:00 [employer] Start Date: 05/23/16 Stop Date: 05/23/16 Status: Completed [place] 10/325 oral tablet 1 tab, PO, Q6H, 0 Refill(s) Start Date: 05/21/16 Status: Ordered propofol (ANES) Route: IV, Drug form: INJ, ONCE, Stop date: 05/23/16 10:01:00 [employer] Start Date: 05/23/16 Stop Date: 05/23/16 Status: Completed Sodium Chloride 0.9% IV 500 mL 500 mL, Rate: 125 ml/hr, Infuse over: 4 hr, Route: IV, Dosing Weight 94.591 kg, Total Volume: 500, Start date: 05/23/16 10:10:00 [employer], Duration: 30 day, Stop johnny e: 06/22/16 10:09:00 [employer] Start Date: 05/23/16 Stop Date: 05/24/16 Status: Discontinued Sodium Chloride 0.9% IV 500 mL 500 mL, Rate: 25 ml/hr, Infuse over: 20 hr, Route: IV, Dosing Weight 94.591 kg, Total Volume: 500, Start date: 05/23/16 8:55:00 [employer], Duration: 30 day, Stop date : 06/22/16 8:54:00 [employer] Start Date: 05/23/16 Stop Date: 05/23/16 Status: Discontinued trazodone PO, 0 Refill(s) Start Date: 05/21/16 Status: Ordered Tylenol PM oral liquid 30 ml, PO, Bedtime, PRN for sleep, # 240 ml, 0 Refill(s) Start Date: 05/21/16 Stop Date: 05/29/16 Status: Ordered Results ELECTROLYTES Most recent to 1 oldest [Reference Range]: Sodium Lvl [135-145 137 mEq/L mEq/L] (05/21/16 4:55 PM) Potassium Lvl 4.0 mEq/L [3.5-5.1 mEq/L] (05/21/16 4:55 PM) Chloride Lvl [95-109 101 mEq/L mEq/L] (05/21/16 4:55 PM) CO2 [24-32 mEq/L] 29 mEq/L (05/21/16 4:55 PM) AGAP [10.0-20.0 11.0 mEq/L mEq/L] (05/21/16 4:55 PM) CHEM PANEL Most recent to 1 oldest [Reference Range]: Creatinine Lvl 1.00 mg/dL [0.50-1.40 mg/dL] (05/21/16 4:55 PM) eGFR 92 mL/min/1.73m2 1 *NA* (05/21/16 4:55 PM) BUN [7-22 mg/dL] 10 mg/dL (05/21/16 4:55 PM) Glucose Lvl [70-99 81 mg/dL mg/dL] (05/21/16 4:55 PM) Calcium Lvl 9.7 mg/dL [8.5-10.5 mg/dL] (05/21/16 4:55 PM) 1Result Comment: The eGFR is calculated using [...] be mul tiplied by the estimated BMI. HEMATOLOGY Most recent to 1 oldest [Reference Range]: WBC [3.7-10.4 K/CMM] 10.6 K/CMM *HI* (05/21/16 4:55 PM) RBC [4.70-6.10 5.45 M/CMM M/CMM] (05/21/16 4:55 PM) Hgb [14.0-18.0 g/dL] 15.4 g/dL (05/21/16 4:55 PM) Hct [42.0-54.0 %] 46.7 % (05/21/16 4:55 PM) MCV [80.0-94.0 fL] 85.6 fL (05/21/16 4:55 PM) MCH [27.0-31.0 pg] 28.3 pg (05/21/16 4:55 PM) MCHC [32.0-36.0 33.1 g/dL g/dL] (05/21/16 4:55 PM) RDW [11.5-14.5 %] 17.5 % *HI* (05/21/16 4:55 PM) Platelet [133-450 292 K/CMM K/CMM] (05/21/16 4:55 PM) MPV [7.4-10.4 fL] 9.6 fL (05/21/16 4:55 PM) Segs [45.0-75.0 %] 72.5 % (05/21/16 4:55 PM) Lymphocytes 20.7 % [20.0-40.0 %] (05/21/16 4:55 PM) Monocytes [2.0-12.0 4.8 % %] (05/21/16 4:55 PM) Eosinophils [0.0-4.0 1.2 % %] (05/21/16 4:55 PM) Basophils [0.0-1.0 0.8 % %] (05/21/16 4:55 PM) Segs-Bands # 7.7 K/CMM [1.5-8.1 K/CMM] (05/21/16 4:55 PM) Lymphocytes # 2.2 K/CMM [1.0-5.5 K/CMM] (05/21/16 4:55 PM) Monocytes # [0.0-0.8 0.5 K/CMM K/CMM] (05/21/16 4:55 PM) Eosinophils # 0.1 K/CMM [0.0-0.5 K/CMM] (05/21/16 4:55 PM) Basophils # [0.0-0.2 0.1 K/CMM K/CMM] (05/21/16 4:55 PM) Immunizations Given and Recorded Vaccine Date Status [...]
--- OUTSIDE RECORDS SUMMARY | 2018-02-27 18:13 | XMS REPORT ---
Author Author Miladis Raphael Organization [employer] Address Unknown Phone Unavailable Care Team Providers Care Booster Pump Operator Name Role Phone Miladis Raphael CP Unavailable Allergies No Known Allergies Problems Problem Type Condition Code Onset Dates Condition Status Problem Bipolar depression F31.30 Active Problem OCD (obsessive compulsive disorder) F42 Active Problem Insomnia G47.00 Active Problem COPD with exacerbation J44.1 Active Problem Gastroesophageal reflux disease without esophagitis K21.9 Active Problem Chronic obstructive pulmonary disease with acute lower respiratory infection J44.0 Active Problem COPD suggested by initial evaluation J44.9 Active Problem Encounter for tobacco use cessation counseling Z71.6 Active Problem Mucopurulent chronic bronchitis J41.1 Active Problem Nephrolithiasis N20.0 Active Problem Lumbago with sciatica, left side M54.42 Active Problem Hypothyroid E03.9 Active Problem Acute recurrent frontal sinusitis J01.11 Active Problem Anxiety F41.9 Active Problem Headache R51 Active Problem Annual physical exam Z00.00 Active Medications Medication Code System Code Instructions Start Date End Date Status Dosage Benzonatate [facility] [id number] 200 MG Orally Three times a day Mar 26, 2017 Apr 05, 2017 Active 1 capsule Results No Known Results Summary Purpose [employer] Submission
--- OUTSIDE RECORDS SUMMARY | 2018-02-27 18:13 | XMS REPORT ---
Author Author Miladis Raphael Organization [employer] Address Unknown Phone Unavailable Care Team Providers [employer] Name Role Phone Miladis Raphael Unavailable Allergies, Adverse Reactions, Alerts Substance Reaction Event Type penicillin anaphylaxis Drug Allergy Zofran Info Not Available Drug Allergy Encounters Encounter Location Date sick visit [facility] [place] [facility] [place] Mar 14, 2016 Unknown [facility] [place] Dec 08, 2015 [facility]NUAL [facility]YS[facility] [place] November 25, 2015 dr Raphael only [facility] [place] [facility] [place] Feb 06, 2016 Problems Problem Type Condition ICD-9 Code Onset Dates Condition Status Problem Insomnia G47.00 Active Problem Hypothyroid E03.9 Active Problem Bipolar depression F31.30 Active Problem COPD suggested by initial evaluation J44.9 Active Problem Encounter for tobacco use cessation counseling Z71.6 Active Problem COPD with exacerbation J44.1 Active Problem OCD (obsessive compulsive disorder) F42 Active Problem Lumbago with sciatica, left side M54.42 Active Problem Annual physical exam Z00.00 Active Problem Anxiety F41.9 Active Assessment Bilateral impacted cerumen H61.23 Active Assessment COPD with exacerbation J44.1 Active Problem Headache R51 Active Problem Acute recurrent frontal sinusitis J01.11 Active Medications Medication Code System Code Instructions Start Date End Date Status Dosage Protonix MEDISPAN [address]-39 40 MG Orally Once a day Active 1 tablet MethylPREDNISolone MEDISPAN [address]-80 4 MG Orally as directed Mar 14, 2016 Active as directed Quetiapine Fumarate [facility] 97858641069 400MG Active TAKE TWO TABLETS BY MOUTH AT BEDTIME ONCE EVERY NIGHT FOR 15 DAYS Percocet [facility] [address]-78 10-325 MG Orally every 6 hrs Active 1 tablet as needed Permethrin MEDISPAN [address]-51 1 % Externally as directed Feb 06, 2016 Active as directed Fentanyl [facility] [address]-98 25 MCG/HR Transdermal Active 1 patch to skin Seroquel MEDISPAN [address]-48 400 MG Orally once every night Active 2 tablet at bedtime Trazodone HCl [facility] [address]-55 50 mg Orally Once a day Active 1 tablet at bedtime as needed Carbamide Peroxide [facility] [address]-40 6.5 % Otic as directed Mar 14, 2016 Active as directed Tizanidine HCl [facility] [address]-28 4 mg Orally twice a day (bid) Active 1 tablet as needed Albuterol Sulfate [facility] [address]-09 0.083 Inhalation every 6 hrs Active 3 ml as needed Xanax [facility] [address]-89 2 MG Orally Three times a day Active 1 tablet Levofloxacin [facility] [address]-50 500 MG Orally Once a day Mar 14, 2016 Mar 24, 2016 Active 1 tablet Gabapentin [facility] [address]-84 600 MG Orally Three times a day Active 1 tablet Synthroid [facility] [address]-46 75 MCG Orally Once a day July 14, 2015 Active 1 tablet Social History Social History Element Qualifiers Date Reported Tobacco Use: . Are you a: current smoker Mar 14, 2016 Alcohol Screening: . Points: 0, Interpretation: Negative Mar 14, 2016 Sexual Hx: . Had sex in the last 12 months (vaginal, oral, or anal)?: No, Have you ever had an STD?: No Mar 14, 2016 Do you have pets? . Status: Yes, Type: dog(s) Mar 14, 2016 Use of recreational / street drugs? . Answer: No Mar 14, 2016 Marital Status: . Single Mar 14, 2016 Caffeine intake? . Status: Yes, What type: Soft Drinks Mar 14, 2016 Do you exercise? . Answer: Yes, Type: walking Mar 14, 2016 Do you drink alcohol? . Status: No Mar 14, 2016 Travel outside [place]: . no Mar 14, 2016 Occupation: . Employed Mar 14, 2016 Vital Signs Date/Time: Mar 14, 2016 Weight 212 lbs Height 69 in Temperature 97.1 F Blood Pressure Diastolic 79 mm Hg Blood Pressure Systolic 123 mm Hg Immunizations Vaccine Administration Date DEPO MEDROL 40 mg Mar 14, 2016 Rocephin 250 mg Mar 14, 2016 Summary Purpose [employer] Submission
--- OUTSIDE RECORDS SUMMARY | 2018-02-27 18:13 | XMS REPORT | Summary of Care ---
Author Author [facility] Organization [facility] Address Unknown Phone Unavailable Encounter HQ Ramon(SHAHNAZ) [id number] Date(s): 03/30/17 - 04/03/17 [facility] [id number] [place] [address]- Discharge Disposition: Home or Self Care Attending Physician: Miladis Raphael MD Admitting Physician: Miladis Raphael MD Vital Signs 1 2 3 Most recent to oldest [Reference Range]: 175.26 cm (03/30/17 3:04 PM) 175.26 cm (03/30/17 9:58 AM) Height 98.1 DegF (04/03/17 11:52 AM) 97.9 DegF (04/03/17 8:44 AM) 97.9 DegF (04/03/17 4:32 AM) Temperature Oral [96.4-99.1 DegF] 144/85 mmHg *HI* (04/03/17 11:52 AM) 112/71 mmHg (04/03/17 8:44 AM) 113/68 mmHg (04/03/17 4:32 AM) Blood Pressure [90-140/60-90 mmHg] 20 BRMIN (04/03/17 11:52 AM) 20 BRMIN (04/03/17 11:01 AM) 18 BRMIN (04/03/17 8:44 AM) Respiratory Rate [14-20 BRMIN] 79 bpm (04/03/17 11:52 AM) 68 bpm (04/03/17 8:44 AM) 76 bpm (04/03/17 4:32 AM) Peripheral Pulse Rate [60-100 bpm] 95 kg (04/03/17 12:01 PM) 95.455 kg (03/30/17 3:04 PM) 95.455 kg (03/30/17 9:58 AM) Weight 31.08 m2 (03/30/17 3:04 PM) 31.08 m2 (03/30/17 9:58 AM) Body Mass Index Problem List Condition [...] Adverse Reactions, Alerts Substance Reaction Severity Status penicillins breathing trouble Active naproxen Active Toradol Active Zofran Active Ultram Active Other Food Allergy coconut Active Makoti C Active lamoTRIgine rash Active traMADol Active Medications acetylcysteine 20% inhalation solution 400 mg, 2 mL, Route: NEB, Drug Form: SOLN, Dosing Weight 95.455, kg, RQID, Start date: 03/31/17 15:00:00 ZIPPER SEWING MACHINE OPERATOR, Stop date: 04/30/17 11:00:00 ZIPPER SEWING MACHINE OPERATOR Start Date: 03/31/17 Stop Date: 04/03/17 Status: Discontinued acetylcysteine 20% inhalation solution 0.6 gm=3 mL, NEB, QID, X 30 day, # 360 mL, 0 Refill(s), Pharmacy: [email or web address] [id number] Start Date: 04/03/17 Stop Date: 05/03/17 Status: Ordered albuterol 0.083% inhalation solution 2.49 mg, 3 mL, Route: NEB, Drug form: SOLN, RQ4H, Dosing Weight 95.455, kg, Star t date: 03/30/17 23:00:00 ZIPPER SEWING MACHINE OPERATOR, Duration: 30 day, Stop date: 04/29/17 19:00:00 CS T Notes: SEE RT DOCUMENTATION (Same as: Kvng) Start Date: 03/30/17 Stop Date: 04/01/17 Status: Discontinued ALPRAZOLam 0.5 mg oral tablet 0.5 mg, 1 tab, Route: PO, Drug form: TAB, QID, Dosing Weight 95.455, kg, PRN Anx iety, Start date: 03/30/17 15:29:00 ZIPPER SEWING MACHINE OPERATOR, Duration: 30 day, Stop date: 04/29/17 1 5:28:00 ZIPPER SEWING MACHINE OPERATOR Notes: With food or milk(Same as: Xanax) Start Date: 03/30/17 Stop Date: 04/03/17 Status: Discontinued ALPRAZOLam 0.5 mg oral tablet 0.5 mg=1 tab, PO, QID, PRN as needed for anxiety, 0 Refill(s) Start Date: 03/30/17 Status: Ordered amitriptyline 25 mg, 1 tab, Route: PO, Drug form: TAB, Bedtime, Dosing Weight 95.455, kg, Star t date: 03/30/17 21:00:00 ZIPPER SEWING MACHINE OPERATOR, Duration: 30 day, Stop date: 04/28/17 21:00:00 CS T Notes: (Same as: Janelll) Start Date: 03/30/17 Stop Date: 04/01/17 Status: Discontinued amitriptyline 50 mg, 1 tab, Route: PO, Drug form: TAB, Bedtime, Dosing Weight 95.455, kg, Star t date: 04/01/17 21:00:00 ZIPPER SEWING MACHINE OPERATOR, Duration: 30 day, Stop date: 04/30/17 21:00:00 CS T Notes: (Same as: Rakesh) Start Date: 04/01/17 Stop Date: 04/03/17 Status: Discontinued baclofen 20 mg, 1 tab, Route: PO, Drug form: TAB, QID, Dosing Weight 95.455, kg, Start da te: 03/30/17 17:00:00 ZIPPER SEWING MACHINE OPERATOR, Duration: 30 day, Stop date: 04/29/17 13:00:00 ZIPPER SEWING MACHINE OPERATOR Notes: (Same As: Leandro) Start Date: 03/30/17 Stop Date: 04/03/17 Status: Discontinued baclofen 10 mg oral tablet 20 mg=2 tab, PO, QID, 0 Refill(s) Start Date: 03/30/17 Status: Ordered doxycycline hyclate 100 mg oral capsule 100 mg, 1 cap, Route: PO, [id number], Dosing Weight 95.455, kg, Start date: 7 14:00:00 ZIPPER SEWING MACHINE OPERATOR, Duration: 30 day, Stop date: 04/29/17 2:00:00 ZIPPER SEWING MACHINE OPERATOR Start Date: 03/30/17 Stop Date: 03/30/17 Status: Deleted doxycycline hyclate 100 mg oral tablet 100 mg=1 tab, PO, Q12H, X 7 day, # 14 tab, 0 Refill(s), Pharmacy: [facility] [id number] Start Date: 04/03/17 Stop Date: 04/10/17 Status: Ordered DuoNeb inhalation solution 3 ml, Route: NEB, Drug Form: SOLN, Dosing Weight 95.455, kg, PRN, PRN Respirator y Protocol, Start date: 03/30/17 10:19:00 ZIPPER SEWING MACHINE OPERATOR, Duration: 30 day, Stop date: 05/16 10:18:00 ZIPPER SEWING MACHINE OPERATOR Notes: (Same as: Duoneb) Start Date: 03/30/17 Stop Date: 04/03/17 Status: Discontinued DuoNeb inhalation solution 3 mL, Route: NEB, Drug Form: SOLN, RQ4H, Start date: 04/01/17 11:00:00 ZIPPER SEWING MACHINE OPERATOR, Dura tion: 30 day, Stop date: 05/01/17 7:00:00 ZIPPER SEWING MACHINE OPERATOR Notes: (Same as: Duoneb) Start Date: 04/01/17 Stop Date: 04/03/17 Status: Discontinued Flonase 0.05 mg/inh nasal spray 2 spray, Route: NASAL, Drug Form: SPRY, Dosing Weight 95.455, kg, BID, PRN Aller gies, Start date: 03/30/17 15:29:00 ZIPPER SEWING MACHINE OPERATOR, Duration: 30 day, Stop date: 04/29/17 1 5:28:00 ZIPPER SEWING MACHINE OPERATOR Notes: (Same as: Flonase) Start Date: 03/30/17 Stop Date: 04/03/17 Status: Discontinued Flonase 0.05 mg/inh nasal spray 2 spray, NASAL, BID, PRN Allergies, 0 Refill(s) Start Date: 03/30/17 Status: Ordered gabapentin 400 mg oral capsule 800 mg, 2 cap, Route: PO, Drug form: CAP, TID, Dosing Weight 95.455, kg, Start d ate: 04/01/17 9:00:00 ZIPPER SEWING MACHINE OPERATOR, Duration: 30 day, Stop date: 05/01/17 8:00:00 ZIPPER SEWING MACHINE OPERATOR Notes: (Same as: Neurontin) Start Date: 04/01/17 Stop Date: 04/03/17 Status: Discontinued influenza virus vaccine, inactivated 0.5 mL, Route: IM, Drug Form: SUSP, Daily, Start date: 03/31/17 15:00:00 ZIPPER SEWING MACHINE OPERATOR, Du ration: 1 doses or times, Stop date: 03/31/17 15:00:00 ZIPPER SEWING MACHINE OPERATOR Notes: (Same as: Fluzone Quadrivalent, Fluarix Quadrivalent)For 3 years of age a nd older (0.5 mL IM)Shake well before use Start Date: 03/31/17 Stop Date: 03/31/17 Status: Completed ipratropium 0.5 mg, 2.5 mL, Route: NEB, Drug form: SOLN, RQ4H, Dosing Weight 95.455, kg, Sta rt date: 03/30/17 23:00:00 ZIPPER SEWING MACHINE OPERATOR, Duration: 30 day, Stop date: 04/29/17 19:00:[address] Notes: SEE RT DOCUMENTATION(Same as:Atrovent) Start Date: 03/30/17 Stop Date: 04/01/17 Status: Discontinued Levaquin 500 mg, 2 tab, Route: PO, Drug form: TAB, [id number], Dosing Weight 95.455, kg, Sta rt date: 03/30/17 20:00:00 ZIPPER SEWING MACHINE OPERATOR, Stop date: 04/03/17 20:00:00 ZIPPER SEWING MACHINE OPERATOR, ABX Indication : Pneumonia Notes: Do not give w/antacids, dairy pdt & minerals Take 1 hr before or 2 hr after dairy pdt (Same as:Levaquin) Start Date: 03/30/17 Stop Date: 04/03/17 Status: Discontinued Levaquin 500 mg oral tablet 500 mg=1 tab, PO, Q24H, X 7 day, # 7 tab, 0 Refill(s), Pharmacy: [id number] Start Date: 04/03/17 Stop Date: 04/10/17 Status: Ordered levothyroxine 75 microgram, 1 tab, Route: PO, Drug form: TAB, [id number], Dosing Weight 95.455, kg , Start date: 03/31/17 6:30:00 ZIPPER SEWING MACHINE OPERATOR, Duration: 30 day, Stop date: 04/29/17 6:30:0 0 ZIPPER SEWING MACHINE OPERATOR Notes: Take 1 hour before or 2 hours after meal; Enteral feeds may interefere wi th the absorption of this medication. (Same as:Synthroid, Levothroid) Start Date: 03/31/17 Stop Date: 04/03/17 Status: Discontinued morphine Sulfate 4 mg, 2 mL, Route: PO, Drug form: SOLN, Q4H, Dosing Weight 95.455, kg, PRN Pain Score 6-10, Start date: 04/02/17 10:52:00 ZIPPER SEWING MACHINE OPERATOR, Duration: 30 day, Stop date: 08/14 10:51:00 ZIPPER SEWING MACHINE OPERATOR, Pain Score 6-9 Notes: (Same as:MORPhine Sulfate) Start Date: 04/02/17 Stop Date: 04/03/17 Status: Discontinued morphine Sulfate 2 mg, 1 mL, Route: PO, Drug form: SOLN, Q4H, Dosing Weight 95.455, kg, PRN Pain Score 6-10, Start date: 04/01/17 13:22:00 ZIPPER SEWING MACHINE OPERATOR, Duration: 30 day, Stop date: 07/14 13:21:00 ZIPPER SEWING MACHINE OPERATOR, Pain Score 6-9 Notes: (Same as:MORPhine Sulfate) Start Date: 04/01/17 Stop Date: 04/02/17 Status: Discontinued pantoprazole 40 mg, 1 tab, Route: PO, Drug form: ECTAB, Daily, Dosing Weight 95.455, kg, Star t date: 03/31/17 9:00:00 ZIPPER SEWING MACHINE OPERATOR, Duration: 30 day, Stop date: 04/29/17 9:00:00 ZIPPER SEWING MACHINE OPERATOR Notes: Tablet should not be chewed or crushed.(Same as: Protonix) Start Date: 03/31/17 Stop Date: 04/03/17 Status: Discontinued Percocet 10/325 oral tablet 1 tab, Route: PO, Drug Form: TAB, Dosing Weight 95.455, kg, Q6H, PRN Pain Score 7-10, Start date: 03/30/17 15:29:00 ZIPPER SEWING MACHINE OPERATOR, Duration: 30 day, Stop date: 04/29/17 1 5:28:00 ZIPPER SEWING MACHINE OPERATOR Start Date: 03/30/17 Stop Date: 03/30/17 Status: Deleted Percocet 10/325 oral tablet 1 tab, PO, Q6H, PRN Pain Score 7-10, 0 Refill(s) Start Date: 03/30/17 Status: Ordered pneumococcal 23-valent vaccine 0.5 mL, Route: IM, Drug Form: INJ, Daily, Start date: 03/31/17 15:00:00 ZIPPER SEWING MACHINE OPERATOR, Dur ation: 1 doses or times, Stop date: 03/31/17 15:00:00 ZIPPER SEWING MACHINE OPERATOR Notes: (Same as: Pneumovax 23) Refrigerate Start Date: 03/31/17 Stop Date: 04/01/17 Status: Deleted Pneumovax 23 0.5 mL, Route: IM, Drug Form: INJ, Daily, Start date: 04/01/17 17:30:00 ZIPPER SEWING MACHINE OPERATOR, Dur ation: 1 doses or times, Stop date: 04/01/17 17:30:00 ZIPPER SEWING MACHINE OPERATOR Notes: (Same as: Pneumovax 23) Refrigerate Start Date: 04/01/17 Stop Date: 04/01/17 Status: Completed predniSONE 10 mg oral tablet See Instructions, 2 tabs daily x 1 week then 10 mg daily, # 40 tab, 0 Refill(s), Pharmacy: [facility] [id number] Start Date: 04/03/17 Stop Date: 05/11/17 Status: Ordered PROzac 20 mg, 2 cap, Route: PO, Drug form: CAP, Daily, Dosing Weight 95.455, kg, Start date: 03/31/17 9:00:00 ZIPPER SEWING MACHINE OPERATOR, Duration: 30 day, Stop date: 04/29/17 9:00:00 ZIPPER SEWING MACHINE OPERATOR Notes: (Same as: Prozac) Start Date: 03/31/17 Stop Date: 04/03/17 Status: Discontinued PROzac 20 mg oral capsule 20 mg=1 cap, PO, Daily, 0 Refill(s) Start Date: 03/30/17 Status: Ordered QUEtiapine 600 mg, 6 tab, Route: PO, Drug form: TAB, Bedtime, Dosing Weight 95.455, kg, Sta rt date: 03/30/17 21:00:00 ZIPPER SEWING MACHINE OPERATOR, Stop date: 04/28/17 21:00:00 ZIPPER SEWING MACHINE OPERATOR Notes: (Same as: SEROquel) Start Date: 03/30/17 Stop Date: 04/03/17 Status: Discontinued Rocephin + sterile water 10 mL 1 gm, Route: IV, ONCE, Dosing Weight 95.455, kg, Priority: STAT, Start date: 06/15 13:35:00 ZIPPER SEWING MACHINE OPERATOR, Stop date: 03/30/17 13:35:00 ZIPPER SEWING MACHINE OPERATOR, ABX Indication: Skin/Soft Tissue Infection Notes: (Same As: Rocephin).Use with 100 mL NS and infuse over 30 min MEDICA TION WASTE Product Size: 1000 mgProduct Wasted: __0_ mg Start Date: 03/30/17 Stop Date: 03/30/17 Status: Discontinued Roxicodone 10 mg, 2 tab, Route: PO, Drug form: TAB, Q6H, PRN Pain Score 7-10, Start date: 05/31/16 15:41:00 ZIPPER SEWING MACHINE OPERATOR, Duration: 30 day, Stop date: 04/29/17 15:40:00 ZIPPER SEWING MACHINE OPERATOR Notes: (Same as: Roxicodone) Start Date: 03/30/17 Stop Date: 04/03/17 Status: Discontinued Saline Flush 0.9% 10 mL, Route: IVP, Drug Form: INJ, Dosing Weight 95.455, kg, PRN, PRN Line Flush , Start date: 03/30/17 10:19:00 ZIPPER SEWING MACHINE OPERATOR, Duration: 30 day, Stop date: 04/29/17 10:18 :00 ZIPPER SEWING MACHINE OPERATOR Notes: (Same as: BD Posiflush) Start Date: 03/30/17 Stop Date: 03/31/17 Status: Discontinued Solu-MEDROL 30 mg, 0.75 mL, Route: IVP, Drug form: INJ, Q12H, Dosing Weight 95.455, kg, Star t date: 03/31/17 21:00:00 ZIPPER SEWING MACHINE OPERATOR, Duration: 30 day, Stop date: 04/30/17 9:00:00 ZIPPER SEWING MACHINE OPERATOR Notes: (Same as:Solu-MEDROL, A-Methapred) Start Date: 03/31/17 Stop Date: 04/03/17 Status: Discontinued Solu-MEDROL 60 mg, 0.96 mL, Route: IVP, Drug form: INJ, Q6H, Dosing Weight 95.455, kg, Start date: 03/31/17 0:00:00 ZIPPER SEWING MACHINE OPERATOR, Duration: 30 day, Stop date: 04/29/17 18:00:00 ZIPPER SEWING MACHINE OPERATOR Notes: (Same as:Solu-MEDROL, A-Methapred) Start Date: 03/31/17 Stop Date: 03/31/17 Status: Discontinued trazodone 200 mg, 4 tab, Route: PO, Drug form: TAB, Bedtime, Dosing Weight 95.455, kg, PRN Insomnia, Start date: 04/02/17 9:37:00 ZIPPER SEWING MACHINE OPERATOR, Duration: 30 day, Stop date: 9:36:00 ZIPPER SEWING MACHINE OPERATOR Notes: (Same As: Desyrel) Start Date: 04/02/17 Stop Date: 04/03/17 Status: Discontinued Tylenol 325 mg, 1 tab, Route: PO, Drug form: TAB, Q6H, PRN Pain Score 7-10, Start date: 03/30/17 15:42:00 ZIPPER SEWING MACHINE OPERATOR, Duration: 30 day, Stop date: 04/29/17 15:41:00 ZIPPER SEWING MACHINE OPERATOR Notes: Do not exceed 4 gm/day. (Same as: Tylenol) Start Date: 03/30/17 Stop Date: 04/03/17 Status: Discontinued Tylenol 650 mg, 2 tab, Route: PO, Drug form: TAB, ONCE, Dosing Weight 95.455, kg, Priori ty: STAT, Start date: 03/30/17 13:42:00 ZIPPER SEWING MACHINE OPERATOR, Stop date: 03/30/17 13:42:00 ZIPPER SEWING MACHINE OPERATOR Notes: Do not exceed 4 gm/day. (Same as: Tylenol) Start Date: 03/30/17 Stop Date: 03/30/17 Status: Completed Vibramycin 100 mg, 2 cap, Route: PO, Drug form: CAP, [id number], Start date: 03/30/17 14:00:00 ZIPPER SEWING MACHINE OPERATOR, Duration: 30 day, Stop date: 04/29/17 2:00:00 ZIPPER SEWING MACHINE OPERATOR Notes: (Same as: Vibramycin) No milk/antacids/iron. Take 1 hour before or 2 tessa rs after dairy products Start Date: 03/30/17 Stop Date: 04/03/17 Status: Discontinued Results ELECTROLYTES Most recent to 1 2 oldest [Reference Range]: Sodium Lvl [135-145 137 mEq/L 139 mEq/L mEq/L] (03/31/17 3:47 AM) (03/30/17 11:14 AM) Potassium Lvl 4.2 mEq/L 3.9 mEq/L [3.5-5.1 mEq/L] (03/31/17 3:47 AM) (03/30/17 11:14 AM) Chloride Lvl [95-109 99 mEq/L 99 mEq/L mEq/L] (03/31/17 3:47 AM) (03/30/17 11:14 AM) CO2 [24-32 mEq/L] 30 mEq/L 33 mEq/L (03/31/17 3:47 AM) *HI* (03/30/17 11:14 AM) AGAP [10.0-20.0 12.2 mEq/L 10.9 mEq/L mEq/L] (03/31/17 3:47 AM) (03/30/17 11:14 AM) CHEM PANEL Most recent to 1 2 oldest [Reference Range]: Creatinine Lvl 0.96 mg/dL 0.92 mg/dL [0.50-1.40 mg/dL] (03/31/17 3:47 AM) (03/30/17 11:14 AM) eGFR 97 mL/min/1.73m2 1 101 mL/min/1.73m2 2 *NA* *NA* (03/31/17 3:47 AM) (03/30/17 11:14 AM) BUN [7-22 mg/dL] 12 mg/dL 10 mg/dL (03/31/17 3:47 AM) (03/30/17 11:14 AM) B/C Ratio [6-25] 11 (03/30/17 11:14 AM) Glucose Lvl [70-99 120 mg/dL 96 mg/dL mg/dL] *HI* (03/30/17 11:14 AM) (03/31/17 3:47 AM) Total Protein 7.5 g/dL [6.4-8.4 g/dL] (03/30/17 11:14 AM) Albumin Lvl [3.5-5.0 3.7 g/dL g/dL] (03/30/17 11:14 AM) Globulin [2.7-4.2 3.8 g/dL g/dL] (03/30/17 11:14 AM) A/G Ratio [0.7-1.6] 1.0 (03/30/17 11:14 AM) Calcium Lvl 9.0 mg/dL 8.7 mg/dL [8.5-10.5 mg/dL] (03/31/17 3:47 AM) (03/30/17 11:14 AM) Magnesium Lvl 2.3 mg/dL [1.8-2.4 mg/dL] (03/30/17 11:14 AM) ALT [0-65 unit/L] 13 unit/L (03/30/17 11:14 AM) AST [0-37 unit/L] 12 unit/L (03/30/17 11:14 AM) Alk Phos [39-136 115 unit/L unit/L] (03/30/17 11:14 AM) Bili Total [0.2-1.3 0.4 mg/dL mg/dL] (03/30/17 11:14 AM) Lactic Acid Lvl 0.6 mMol/L [0.5-2.2 mMol/L] (03/30/17 11:14 AM) 1Result Comment: The eGFR is calculated [...] be mul tiplied by the estimated BMI. CARDIAC ENZYMES Most recent to 1 2 oldest [Reference Range]: Total CK [12-191 68 unit/L unit/L] (03/30/17 11:14 AM) CK MB [0.5-3.6 1.0 ng/mL ng/mL] (03/30/17 11:14 AM) CK MB Index 1.5 [0.0-2.5] (03/30/17 11:14 AM) Troponin-I <0.02 ng/mL [0.00-0.40 ng/mL] (03/30/17 11:14 AM) BNP [<=100 pg/mL] 34 pg/mL (03/30/17 11:14 AM) HEMATOLOGY Most recent to 1 2 oldest [Reference Range]: WBC [3.7-10.4 K/CMM] 10.9 K/CMM 12.3 K/CMM *HI* *HI* (03/31/17 3:47 AM) (03/30/17 11:14 AM) RBC [4.70-6.10 4.95 M/CMM 5.04 M/CMM M/CMM] (03/31/17 3:47 AM) (03/30/17 11:14 AM) Hgb [14.0-18.0 g/dL] 13.9 g/dL 14.1 g/dL *LOW* (03/30/17 11:14 AM) (03/31/17 3:47 AM) Hct [42.0-54.0 %] 41.6 % 42.4 % *LOW* (03/30/17 11:14 AM) (03/31/17 3:47 AM) MCV [80.0-94.0 fL] 84.1 fL 84.1 fL (03/31/17 3:47 AM) (03/30/17 11:14 AM) MCH [27.0-31.0 pg] 28.0 pg 28.0 pg (03/31/17 3:47 AM) (03/30/17 11:14 AM) MCHC [32.0-36.0 33.3 g/dL 33.3 g/dL g/dL] (03/31/17 3:47 AM) (03/30/17 11:14 AM) RDW [11.5-14.5 %] 16.9 % 17.0 % *HI* *HI* (03/31/17 3:47 AM) (03/30/17 11:14 AM) Platelet [133-450 179 K/CMM 192 K/CMM K/CMM] (03/31/17 3:47 AM) (03/30/17 11:14 AM) MPV [7.4-10.4 fL] 9.8 fL 9.8 fL (03/31/17 3:47 AM) (03/30/17 11:14 AM) Segs [45.0-75.0 %] 90.7 % 71.6 % *HI* (03/30/17 11:14 AM) (03/31/17 3:47 AM) Lymphocytes 6.0 % 17.4 % [20.0-40.0 %] *LOW* *LOW* (03/31/17 3:47 AM) (03/30/17 11:14 AM) Monocytes [2.0-12.0 2.6 % 8.0 % %] (03/31/17 3:47 AM) (03/30/17 11:14 AM) Eosinophils [0.0-4.0 0.6 % 2.6 % %] (03/31/17 3:47 AM) (03/30/17 11:14 AM) Basophils [0.0-1.0 0.1 % 0.4 % %] (03/31/17 3:47 AM) (03/30/17 11:14 AM) Segs-Bands # 9.8 K/CMM 8.8 K/CMM [1.5-8.1 K/CMM] *HI* *HI* (03/31/17 3:47 AM) (03/30/17 11:14 AM) Lymphocytes # 0.6 K/CMM 2.1 K/CMM [1.0-5.5 K/CMM] *LOW* (03/30/17 11:14 AM) (03/31/17 3:47 AM) Monocytes # [0.0-0.8 0.3 K/CMM 1.0 K/CMM K/CMM] (03/31/17 3:47 AM) *HI* (03/30/17 11:14 AM) Eosinophils # 0.1 K/CMM 0.3 K/CMM [0.0-0.5 K/CMM] (03/31/17 3:47 AM) (03/30/17 11:14 AM) PT [12.0-14.7 11.2 seconds seconds] *LOW* (03/30/17 11:14 AM) INR [0.85-1.17] 0.81 *LOW* (03/30/17 11:14 AM) VIRAL - SEROLOGY Most recent to 1 2 oldest [Reference Range]: Influ A [Negative] Negative (03/30/17 10:35 AM) Influ B [Negative] Negative (03/30/17 10:35 AM) Immunizations Given and Recorded Vaccine Date Status Refusal Reason pneumococcal 23-valent vaccine 04/02/17 Given influenza virus vaccine, inactivated 04/01/17 Given influenza virus vaccine, inactivated 02/20/07 Given Procedures [...] 365 Days Yes; Reg Smoking Cessation Counseling Yes; Tobacco use per day: 20; Assessment and Plan Extracted from: Title: Clinical Document Author: Miladis Raphael MD Date: 04/03/17 Hospitalist Discharge Summary Patient was admitted on 03/31/2017 Date of Discharge: April 03, 2017 Diagnoses: Acute bronchitis, unspecified (J20.9) Chronic obstructive pulmonary disease with (acute) exacerbation (J44.1) Dyspnea, unspecified (R06.00) Hypoxemia (R09.02) Consulting Physicians: Rosendo Ardon MDOffice: service: Medicine Yobani Pat MDOffice: Service: Pulmonary, Medicine Markell Oviedo MDOffice: (no service on file) Laurence Nix MDOffice: Service: Anesthesiology Procedures: None Discharge Meds: Please see separate discharge medication reconciliation Disposition: Home Activity: As recommended Diet : As Recommended TIme spent on discharge summary thirty minutes. Follow-Up with: PCP: Dr. Raphael Consultants: Dr. Pat Hospital Course: Briefly 40-year-old male was admitted to the hospital due to acute exacerbation of COPD failed outpatient treatment. Patient was treated with IV steroids, IV antibiotics, and nebulized bronchodilators. Patient's recovery was quite slow. As his condition improved he was weaned off oxygen. He was able to tolerate activity. He is being discharged home in stable condition advised to follow-up with primary care physician. Subjective & Interval history: Patient seen and examined. Objective: Vital Signs (last 24 hrs) Last Charted Temp Oral 98.1 DegF (APR 03:) Heart Rate Peripheral 79 bpm (APR 03:) Resp Rate 20 BRMIN (APR 03:) SBP H 144 mmHg (APR 03:) DBP 85 mmHg (APR 03:) SpO2 96 % (APR 03:) Weight 95 kg (APR 03:) Medications and labs reviewed as below. PHYSICAL EXAM: GENERAL: AAO NAD HEENT: NCAT, perrl, eomi NECK: Supple, midline trachea LUNGS: CTAB, No rales, rhonchi or wheezes. non labored breathing. CARDIOVASCULAR: S1, S2 normal. No M/G/R. ABDOMEN: Soft, ND, NT. BS + EXTREMITIES: No C/C , or Edema SKIN: No rashes. MUSCULOSKELETAL: Moving all extremities. Neuro: No new motor or sensory deficits IMPRESSION: Acute exacerbation of COPD failed outpatient treatment shortness of breath diabetes mellitus complicated by peripheral neuropathy Hypertension Chronic mood disorder with anxiety and depression Input/Output RecordInOutBal 03/624hr Tot [phone] 03/524hr Tot 1210 0 1210 Scheduled Meds: None Unscheduled Meds: None PRN Meds: None One Time Meds: None Continuous Infusions: None Labs Most Recent Results Previous Results Previous Results Previous Results WBC H 10.9 (MAR 31) H 12.3 (MAR 30) -- -- Hgb L 13.9 (MAR 31) 14.1 (MAR 30) -- -- Hct L 41.6 (MAR 31) 42.4 (MAR 30) -- -- Plt 179 (MAR 31) 192 (MAR 30) -- -- Na 137 (MAR 31) 139 (MAR 30) -- -- K 4.2 (MAR 31) 3.9 (MAR 30) -- -- CO2 30 (MAR 31) H 33 (MAR 30) -- -- Cl 99 (MAR 31) 99 (MAR 30) -- -- Cr 0.96 (MAR 31) 0.92 (MAR 30) -- -- BUN 12 (MAR 31) 10 (MAR 30) -- -- Glucose Random H 120 (MAR 31) 96 (MAR 30) -- -- Mg 2.3 (MAR 30) -- -- -- Ca 9.0 (MAR 31) 8.7 (MAR 30) -- -- PT L 11.2 (MAR 30) -- -- -- INR L 0.81 (MAR 30) -- -- -- Troponin <0.02 (MAR 30) -- -- -- CK MB 1.0 (MAR 30) -- -- -- Total CK 68 (MAR 30) [facility], -- [facility], -- [facility], -- Extracted from: Title: Clinical Document Author: Bridger Villalpando MD Date: 04/03/17 Pulmonary/Critical Care Medicine progess note Bridger Villalpando MD SUBJECTIVE: Seen and examined. Patient ambulating in the hallway. He is currently on room air. He still complaining of cough and unable to expectorate. Events and records reviewed. OBJECTIVE: VitalsTmp(F)Tmp(C)[id number] 04/03 11:[id number]/85---7920--------- 04/03 11:01 2096------ 04/03 08:4497.936.85xfae840/71---6818--------- 04/03 04:3297.936.54faoj371/68---[id number]------ 04/02 23:2998.036.88egcz133/73---[id number]------ 24 Hr Tmax: 98.1F (36.72c) at 04/03 11:52Vital Signs are the last 5 in the past 48 hours. 24 Hr Tmin: 97.9F (36.61c) at 04/03 08:44Weights are the last 5 in 60 days, plus initial. DateWt(kg)Wt(lb)Ht(cm)Ht(in)MethodBMIBSA 04/03 95.00 209.00Estimated 03/30 (initial) 95.45 210.00Estimated 31.12.16 75.26 69.00Stated (no point of care glucose results charted in last 24 hours) Most Recent Scores: 04/03/17Pain Intensity NRS (0-10)0 04/03/17Glasgow Coma Score15 04/03/17Braden Score19 04/03/17[place] Fall Score4 (all previously charted lines have been discontinued) (no surgical procedures documented) Labs Most Recent Results Previous Results Previous Results Previous Results WBC H 10.9 (MAR 31) H 12.3 (MAR 30) -- -- Hgb L 13.9 (MAR 31) 14.1 (MAR 30) -- -- Hct L 41.6 (MAR 31) 42.4 (MAR 30) -- -- Plt 179 (MAR 31) 192 (MAR 30) -- -- Na 137 (MAR 31) 139 (MAR 30) -- -- K 4.2 (MAR 31) 3.9 (MAR 30) -- -- CO2 30 (MAR 31) H 33 (MAR 30) -- -- Cl 99 (MAR 31) 99 (MAR 30) -- -- Cr 0.96 (MAR 31) 0.92 (MAR 30) -- -- BUN 12 (MAR 31) 10 (MAR 30) -- -- Glucose Random H 120 (MAR 31) 96 (MAR 30) -- -- Mg 2.3 (MAR 30) -- -- -- Ca 9.0 (MAR 31) 8.7 (MAR 30) -- -- PT L 11.2 (MAR 30) -- -- -- INR L 0.81 (MAR 30) -- -- -- Troponin <0.02 (MAR 30) -- -- -- CK MB 1.0 (MAR 30) -- -- -- Total CK 68 (MAR 30) [facility], -- [facility], -- [facility], -- RADIOLOGY: ASSESSMENT & EXAM: HEENT:normocephalic,atraumatic Skin:no rash Chest: symmetrical expansion, mild wheezing,no rales, no crackles Heart: Regular rhythm, no murmurs Abdomen: Soft, nontender, bowel sounds present Ext: no edema EMISSIONS INSPECTOR: alert and oriented, no focal neurological defecits DIAGNOSES & PROBLEMS: COPD exacerbation Nonspecific interstitial disease Tobacco use disorder PLAN & TREATMENT: Seen and evaluated earlier this morning. Multiple questions answered to patient. Patient is requesting Mucomyst nebulizer solution, prescription was sent to his pharmacy. Okay to discharge him on prednisone and oral antibiotics. He will follow-up as outpatient. He will require a repeat CAT scan in few months and pulmonary function test. Smoking cessation discussed with patient. Extracted from: Title: Clinical Document Author: Jamaica Ross Date: 04/03/17 Pain Management Progress Note Jamaica Ross PA-C SUBJECTIVE The patient states that pain is stable. History of chronic low back pain. Reports chest pain when coughing. No acute events overnight. Current pain: 8/10 The pain medications are tolerated well. No side effects. Regular diet. Sleeping well overnight. REVIEWS OF SYSTEMS: Negative unless otherwise stated above. OBJECTIVE GENERAL: Awake, alert and oriented. The patient appears to be in no apparent distress. Lying comfortably in bed. SKIN: Warm and moist throughout. No cyanosis. No jaundice. EYES: EOMI. Conjunctiva pink. MOUTH/ THROAT/ NECK: Supple. No masses. Trachea midline. RESPIRATORY: Normal respiratory effort. Symmetric rise of the chest wall. No accessory muscle use. CARDIOVASCULAR: Regular rate. GASTROINTESTINAL: Soft. Nontender. Nondistended. MUSCULOSKELETAL: No musculoskeletal tenderness. NEUROLOGICAL: Moves all limbs spontaneously. Strength intact. Sensation grossly intact to light touch. EXTREMITIES: No clubbing. No edema. ASSESSMENT AND PLAN Mr. Joseph is a 41-year-old male with past medical history significant for anxiety, chronic back pain, GERD, hypothyroidism and kidney calculus. He is currently admitted for acute exacerbation of chronic obstructive pulmonary disease. We have been consulted at this is the patient's pain management during his hospital stay. From pain management standpoint, patient is stable. Will continue home regimen of PO Oxycodone 10mg every 6 hours as needed for baseline pain. Will continue PO Morphine solution 4mg every 4 hours as needed for breakthrough pain. May continue Baclofen 20mg every 6 hours for myofascial component of pain. May continue Gabapentin 800mg every 8 hours for neuropathic component of pain. Discussed proper medication use with the patient today. Patient is known to our service as we see him on an outpatient basis. The patient is scheduled to follow up in our clinic on 04/16/2017 at 11:15 a.m. We left a prescription on the chart for Percocet 10/325mg #60, ctrl [id number] for upon discharge. We will continue to monitor and make adjustments as needed. Please call with any questions or concerns. Attending: Miladis Raphael MDPhone: Service: Internal Medicine Code status: None Specified=FULL CODE Reason for Admission: DYSPNEA, ACUTE BRONCHITIS, HYPOXIA Working DRG: Chronic obstructive pulmonary disease w/o CC/RESIDENTIAL Isolation: None Documented Consulting Physicians: Rosendo Ardon MDOffice: service: Medicine Yobani Pat MDOffice: Service: Pulmonary, Medicine Markell Oviedo MDOffice: (no service on file) Laurence Nix MDOffice: Service: Anesthesiology Scheduled Meds (12): 03/31/17 FLUoxetine (PROzac) 20 mg PO Daily 03/30/17 QUEtiapine 600 mg PO Bedtime 03/31/17 acetylcysteine (acetylcysteine 20% inhalation solution) 400 mg NEB RQID 04/01/17 albuterol-ipratropium (DuoNeb inhalation solution) 3 mL NEB RQ4H 04/01/17 amitriptyline 50 mg PO Bedtime 03/30/17 baclofen 20 mg PO QID 03/30/17 doxycycline (Vibramycin) 100 mg PO [id number] 04/01/17 gabapentin (gabapentin 400 mg oral capsule) 800 mg PO TID 03/30/17 levofloxacin (Levaquin) 500 mg PO [id number] 03/31/17 levothyroxine 75 microgram PO Q630AM 03/31/17 methylPREDNISolone (Solu-MEDROL) 30 mg IVP Q12H 03/31/17 pantoprazole 40 mg PO Daily PRN Meds (7): 03/30/17 ALPRAZOLam (ALPRAZOLam 0.5 mg oral tablet) 0.5 mg PO QID 03/30/17 acetaminophen (Tylenol) 325 mg PO Q6H 03/30/17 albuterol-ipratropium (DuoNeb inhalation solution) 3 ml NEB PRN 03/30/17 fluticasone nasal (Flonase 0.05 mg/inh nasal spray) 2 spray NASAL BID 04/02/17 morphine Sulfate 4 mg PO Q4H 03/30/17 oxyCODONE (Roxicodone) 10 mg PO Q6H 04/02/17 trazodone 200 mg PO Bedtime VitalsTmp(F)[id number] 04/03 08:4497.190057/7118------ 04/03 04:3297.951591/809646--- 04/02 23:2998.092850/599076--- 04/02 20:15 1495--- 04/02 19:2498.281598/520293--- 24 Hr Tmax: 99.1F (37.28c) at 04/02 16:37Vital Signs are the last 5 in the past 48 hours. Lines, Tubes, and Drains: 03/30/2017 11:23 Peripheral Lines: Antecubital Left 20 gauge Over the needle catheter I&ORecordInOutBal 03/524hr Tot 1210 0 1210 03/424hr Tot 1906 0 1906 DateWt(kg)Wt(lb)Ht(cm)Ht(in)Method 03/30 (initial) 95.45 210.00Estimated 75.26 69.00Stated None Specified=FULL CODE Allergies: penicillins(breathing trouble), lamoTRIgine(rash), Other Food Allergy(coconut), Zofran, traMADol, Makoti C, Ultram, naproxen, Toradol
--- OUTSIDE RECORDS SUMMARY | 2018-02-27 18:13 | XMS REPORT ---
Author Author Miladis Raphael Organization [employer] Address Unknown Phone Unavailable Care Team Providers Care Performance Makeup Artist Name Role Phone Miladis Raphael Unavailable Encounters Encounter Location Date sick visit [facility] Mar 14, 2016 Sick Visit [facility] May 09, 2016 Unknown [facility] July 05, 2016 Unknown [facility] Dec 08, 2015 ANNUAL PHYSICAL [facility] November 25, 2015 dr Raphael only [facility] Feb 06, 2016 Problems Problem Type Condition ICD-9 Code Onset Dates Condition Status Problem Lumbago with sciatica, left side M54.42 Active Problem Anxiety F41.9 Active Problem OCD (obsessive compulsive disorder) F42 Active Problem Nephrolithiasis N20.0 Active Problem Mucopurulent chronic bronchitis J41.1 Active Problem COPD with exacerbation J44.1 Active Problem Encounter for tobacco use cessation counseling Z71.6 Active Problem Annual physical exam Z00.00 Active Problem Gastroesophageal reflux disease without esophagitis K21.9 Active Problem COPD suggested by initial evaluation J44.9 Active Problem Acute recurrent frontal sinusitis J01.11 Active Problem Insomnia G47.00 Active Problem Bipolar depression F31.30 Active Problem Headache R51 Active Problem Hypothyroid E03.9 Active Medications Medication Code System Code Instructions Start Date End Date Status Dosage Flonase MEDISPAN [address]-21 50 MCG/ACT Nasally Once a day July 05, 2016 Active 2 spray in each nostril Social History Social History Element Qualifiers Date Reported Tobacco Use: . Are you a: current smoker May 09, 2016 Alcohol Screening: . Points: 0, Interpretation: Negative May 09, 2016 Sexual Hx: . Had sex in the last 12 months (vaginal, oral, or anal)?: No, Have you ever had an STD?: No May 09, 2016 Do you have pets? . Status: Yes, Type: dog(s) May 09, 2016 Use of recreational / street drugs? . Answer: No May 09, 2016 Marital Status: . Single May 09, 2016 Caffeine intake? . Status: Yes, What type: Soft Drinks May 09, 2016 Do you exercise? . Answer: Yes, Type: walking May 09, 2016 Do you drink alcohol? . Status: No May 09, 2016 Travel outside [place]: . no May 09, 2016 Occupation: . Employed May 09, 2016 Summary Purpose eClinicalWorks Submission
--- OUTSIDE RECORDS SUMMARY | 2018-02-27 18:13 | XMS REPORT ---
Author Author Miladis Raphael [facility] [place] eClinicalWorks Address Unknown Phone Unavailable Care Team Providers Care Typesetting Machine Operator/Tender Name Role Phone Miladis Raphael CP Unavailable Allergies, Adverse Reactions, Alerts Substance Reaction Event Type penicillin anaphylaxis Drug Allergy Encounters Encounter Location Date Unknown [facility] [place] Dec 08, 2015 ANNUAL PHYSICAL [facility] [place] November 25, 2015 Problems Problem Type Condition ICD-9 Code Onset Dates Condition Status Assessment Annual physical exam Z00.00 Active Problem Acute recurrent frontal sinusitis J01.11 Active Problem Headache R51 Active Problem Anxiety F41.9 Active Problem OCD (obsessive compulsive disorder) F42 Active Problem Annual physical exam Z00.00 Active Problem Bipolar depression F31.30 Active Problem Insomnia G47.00 Active Problem Lumbago with sciatica, left side M54.42 Active Problem Hypothyroid E03.9 Active Assessment Hypothyroid E03.9 Active Assessment Lumbago with sciatica, left side M54.42 Active Assessment Insomnia G47.00 Active Assessment OCD (obsessive compulsive disorder) F42 Active Assessment Bipolar depression F31.30 Active Assessment Anxiety F41.9 Active Medications Medication Code System Code Instructions Start Date End Date Status Dosage [facility] [address]-36 25 MCG/HR Transdermal Active 1 patch to skin Albuterol Sulfate [facility] [address]-79 0.083 Inhalation every 6 hrs Active 3 ml as needed Synthroid [facility] [address]-66 75 MCG Orally Once a day July 14, 2015 Active 1 tablet [facility]izanidine HCl [facility] [address]-54 4 mg Orally twice a day (bid) Active 1 tablet as needed [facility]ercocet [facility] [address]-55 10-325 MG Orally every 6 hrs Active 1 tablet as needed Gabapentin [facility] [address]-31 600 MG Orally Three times a day Active 1 tablet Acetaminophen-Codeine #3 [facility] [address]-17 300-30 MG Orally twice a day (bid) as needed (prn) November 25, 2015 Dec 10, 2015 Active 1 tablet as needed Seroquel [facility] [address]-84 400 MG Orally once every night Active 2 tablet at bedtime Xanax [facility] [address]-75 2 MG Orally Three times a day Active 1 tablet Trazodone HCl [facility] [address]-03 50 mg Orally Once a day Active 1 tablet at bedtime as needed Protonix [facility] [address]-06 40 MG Orally Once a day Active 1 tablet Social History Social History Element Qualifiers Date Reported Tobacco Use: . Are you a: current smoker November 25, 2015 Alcohol Screening: . Points: 0, Interpretation: Negative November 25, 2015 Sexual Hx: . Had sex in the last 12 months (vaginal, oral, or anal)?: No, Have you ever had an STD?: No November 25, 2015 Do you have pets? . Status: Yes, Type: dog(s) November 25, 2015 Use of recreational / street drugs? . Answer: No November 25, 2015 Marital Status: . Single November 25, 2015 Caffeine intake? . Status: Yes, What type: Soft Drinks November 25, 2015 Do you exercise? . Answer: Yes, Type: walking November 25, 2015 Do you drink alcohol? . Status: No November 25, 2015 Travel outside [place]: . no November 25, 2015 Occupation: . Employed November 25, 2015 Vital Signs Date/Time: November 25, 2015 Weight 214 lbs Height 69 in Temperature 97.3 F Blood Pressure Diastolic 76 mm Hg Blood Pressure Systolic 107 mm Hg Summary Purpose eClinicalWorks Submission
--- OUTSIDE RECORDS SUMMARY | 2018-02-27 18:13 | XMS REPORT ---
Author Author Miladis Raphael [facility] eClinicalWorks Address Unknown Phone Unavailable Care Team Providers Care Analytical Engineer Name Role Phone Miladis Raphael Unavailable Allergies, Adverse Reactions, Alerts Substance Reaction Event Type penicillin anaphylaxis Drug Allergy Zofran Info Not Available Drug Allergy Encounters Encounter Location Date sick visit [facility] Mar 14, 2016 Sick Visit [facility] May 09, 2016 Unknown [facility] Dec [...] COPD suggested by initial evaluation J44.9 Active Assessment Mucopurulent chronic bronchitis J41.1 Active Assessment Right lower quadrant abdominal pain R10.31 Active Assessment Gastroesophageal reflux disease without esophagitis K21.9 Active Problem Acute recurrent frontal sinusitis J01.11 Active Problem Insomnia G47.00 Active Assessment Nephrolithiasis N20.0 Active Problem Bipolar depression F31.30 Active Problem Headache R51 Active Problem Hypothyroid E03.9 Active Medications Medication Code System Code Instructions Start Date End Date Status Dosage Protonix MEDISPAN [address]-37 40 MG Orally Once a day Active 1 tablet Gabapentin [facility] [address]-67 800 MG Orally Three times a day Active 1 tablet Perm[facility] [address]-12 1 % Externally as directed Feb 06, 2016 Active as directed Synthroid MEDISPAN [address]-07 75 MCG Orally Once a day July 14, 2015 Active 1 tablet Quetiapine Fumarate [facility] 58136332754 400MG Active TAKE TWO TABLETS BY MOUTH AT BEDTIME ONCE EVERY NIGHT FOR 15 DAYS Breo Ellipta [facility] [address]-49 100-25 MCG/INH Inhalation Once a day May 09, 2016 October 06, 2016 Active 1 puff Xanax [facility] [address]-97 2 MG Orally Three times a day Active 1 tablet Seroquel [facility] [address]-90 400 MG Orally once every night Active 2 tablet at bedtime Tizanidine HCl [facility] [address]-88 4 mg Orally twice a day (bid) Active 1 tablet as needed Medrol [facility] [address]-32 4 MG Orally as directed May 09, 2016 Active as directed MethylPREDNISolone [facility] [address]-10 4 MG Orally as directed Mar 14, 2016 Active as directed Carbamide Peroxide [facility] [address]-44 6.5 % Otic as directed Mar 14, 2016 Active as directed Albuterol Sulfate [facility] [address]-93 0.083 Inhalation every 6 hrs Active 3 ml as needed Trazodone HCl [facility] [address]-36 50 mg Orally Once a day Active 1 tablet at bedtime as needed Albuterol Sulfate HFA [facility] [address]-73 108 (90 Base) MCG/ACT Inhalation every 4 hrs May 09, 2016 Active 2 puffs as needed Fentanyl [facility] [address]-31 25 MCG/HR Transdermal Active 1 patch to skin Percocet [facility] [address]-74 10-325 MG Orally every 6 hrs Active 1 tablet as needed Social History Social History Element Qualifiers Date [...] 2016 Occupation: . Employed May 09, 2016 Vital Signs Date/Time: May 09, 2016 Weight 220 lbs Height 69 in Temperature 97.3 F Blood Pressure Diastolic 83 mm Hg Blood Pressure Systolic 123 mm Hg Summary Purpose eClinicalWorks Submission
--- OUTSIDE RECORDS SUMMARY | 2018-02-27 18:13 | XMS REPORT ---
Author Author Miladis Raphael [facility] [place] eClinicalWorks Address Unknown Phone Unavailable Care Team Providers Care Gym Instructor Name Role Phone Miladis Raphael CP Unavailable Encounters Encounter Location Date Unknown [facility] [place] Dec 08, 2015 Problems Problem Type Condition ICD-9 Code Onset Dates Condition Status Problem Acute recurrent frontal sinusitis J01.11 Active Problem Headache R51 Active Problem Anxiety F41.9 Active Problem OCD (obsessive compulsive disorder) F42 Active Problem Annual physical exam Z00.00 Active Problem Bipolar depression F31.30 Active Problem Insomnia G47.00 Active Problem Lumbago with sciatica, left side M54.42 Active Problem Hypothyroid E03.9 Active Medications Medication Code System Code Instructions Start Date End Date Status Dosage Xanax MEDISPAN [address]-95 2 MG Orally Three times a day Active 1 tablet Acetaminophen-Codeine #3 [facility] [address]-04 300-30 MG Orally twice a day (bid) as needed (prn) November 25, 2015 Jan 07, 2016 Active 1 tablet as needed Seroquel MED[facility] [address]-62 400 MG Orally once every night Active 2 tablet at bedtime Social History Social History Element Qualifiers Date [...] 2015 Occupation: . Employed November 25, 2015 Summary Purpose eClinicalWorks Submission
--- OUTSIDE RECORDS SUMMARY | 2018-02-27 18:13 | XMS REPORT ---
Author Author Miladis Raphael Organization [employer] Address Unknown Phone Unavailable Care Team Providers Care Mechanical Project Engineer Name Role Phone Miladis Raphael CP Unavailable [...] Problem Annual physical exam Z00.00 Active Medications No Known Medications Results No Known Results Summary Purpose eClinicalWorks Submission
--- OUTSIDE RECORDS SUMMARY | 2018-02-27 18:13 | XMS REPORT ---
Author Author Miladis Raphael [facility] eClinicalWorks Address Unknown Phone Unavailable Care Team Providers Care Auto Parts Salesperson Name Role Phone Miladis Raphael Unavailable Allergies, Adverse Reactions, Alerts Substance Reaction Event Type penicillin anaphylaxis Drug Allergy Zofran Info Not Available Drug Allergy Encounters Encounter Location Date Unknown [facility] [place] Dec 08, 2015 ANNUAL PHYSICAL [facility] [place] November 25, 2015 dr Raphael only [facility] [place] Feb 06, 2016 Problems Problem Type Condition ICD-9 Code Onset Dates Condition Status Problem Acute recurrent frontal sinusitis J01.11 Active Problem Bipolar depression F31.30 Active Problem Insomnia G47.00 Active Problem Encounter for tobacco use cessation counseling Z71.6 Active Problem Annual physical exam Z00.00 Active Problem COPD suggested by initial evaluation J44.9 Active Problem Lumbago with sciatica, left side M54.42 Active Problem Hypothyroid E03.9 Active Problem Anxiety F41.9 Active Problem OCD (obsessive compulsive disorder) F42 Active Assessment COPD suggested by initial evaluation J44.9 Active Assessment Scabies B86 Active Assessment Currently attempting to quit smoking Z72.0 Active Assessment Rash R21 Active Assessment Encounter for tobacco use cessation counseling Z71.6 Active Problem Headache R51 Active Medications Medication Code System Code Instructions Start Date End Date Status Dosage [facility] [address]-31 4 mg Orally twice a day (bid) Active 1 tablet as needed Trazodone HCl [facility] [address]-99 50 mg Orally Once a day Active 1 tablet at bedtime as needed [facility] [address]-61 10-325 MG Orally every 6 hrs Active 1 tablet as needed Protonix [facility] [address]-04 40 MG Orally Once a day Active [address] [facility] [address]-08 75 MCG Orally Once a day July 14, 2015 Active [address] [facility] [address]-32 400 MG Orally once every night Active 2 tablet at bedtime Xanax [facility] [address]-12 2 MG Orally Three times a day Active [address] [facility] [address]-48 25 MCG/HR Transdermal Active 1 patch to skin Permethrin [facility] [address]-81 1 % Externally as directed Feb 06, 2016 Active as directed Gabapentin [facility] [address]-50 600 MG Orally Three times a day Active [address] [facility] [address]-22 0.083 Inhalation every 6 hrs Active 3 ml as needed Quetiapine Fumarate [facility] 77399980162 400MG Active TAKE TWO TABLETS BY MOUTH AT BEDTIME ONCE EVERY NIGHT FOR 15 DAYS Social History Social History Element Qualifiers Date Reported Tobacco Use: . Are you a: current smoker Feb 06, 2016 Alcohol Screening: . Points: 0, Interpretation: Negative Feb 06, 2016 Sexual Hx: . Had sex in the last 12 months (vaginal, oral, or anal)?: No, Have you ever had an STD?: No Feb 06, 2016 Do you have pets? . Status: Yes, Type: dog(s) Feb 06, 2016 Use of recreational / street drugs? . Answer: No Feb 06, 2016 Marital Status: . Single Feb 06, 2016 Caffeine intake? . Status: Yes, What type: Soft Drinks Feb 06, 2016 Do you exercise? . Answer: Yes, Type: walking Feb 06, 2016 Do you drink alcohol? . Status: No Feb 06, 2016 Travel outside [place]: . no Feb 06, 2016 Occupation: . Employed Feb 06, 2016 Vital Signs Date/Time: Feb 06, 2016 Weight 210 lbs Height 69 in Temperature 97.4 F Blood Pressure Diastolic 75 mm Hg Blood Pressure Systolic 123 mm Hg Summary Purpose eClinicalWorks Submission
[2018-02-27] MEDS ORDERED: ONDANSETRON HCL INJ 2 MG/ML VIAL IV STA (18:21)
[2018-02-27] MEDS ORDERED: MORPHINE SULFATE 2 MG/ML SYR IV STA (18:21)
[2018-02-27] MEDS ORDERED: MORPHINE SULFATE INJ 4 MG/ML INJ IV ONE (18:30)
[2018-02-27] MEDS ORDERED: SODIUM CHLORIDE 0.9% 1000ML 1,000 ML IV SCH (18:30)
[2018-02-27] MEDS ORDERED: PROMETHAZINE 12.5MG/ NACL 0.9% 12.5 MG/50 ML BAG IV ONE (18:45)
[2018-02-27 19:03] LABS: BASOPHILS # (AUTO) 0.1 (0.0-0.1); BASOPHILS % 0.7 % (0.0-1.0); EOSINOPHILS # (AUTO) 0.3 (0.0-0.4); EOSINOPHILS % 3.4 % (0.0-6.0); HEMATOCRIT 43.1 % (38.2-49.6); LYMPHOCYTES # (AUTO) 2.6 (1.0-3.2); LYMPHOCYTES % 27.5 % (18.0-39.1); MEAN CORPUSCULAR HEMOGLOBIN 28.5 pg (28-32); MEAN CORPUSCULAR HGB CONC 32.5 g/dL (31-35); MEAN CORPUSCULAR VOLUME 87.8 fL (81-99); MONOCYTES # (AUTO) 0.7 (0.2-0.8); NEUTROPHILS # (AUTO) 5.8 (2.1-6.9); NEUTROPHILS % 61.2 % (38.7-80.0); PLATELET COUNT 207 x10e3/uL (140-360); RED BLOOD COUNT 4.91 x10e6/uL (4.3-5.7); RED CELL DISTRIBUTION WIDTH 17.9 % (11.7-14.4)
[2018-02-27 19:08] LABS: CLARITY,URINE SL CLOUDY (CLEAR); COLOR,URINE RED (YELLOW); KETONES,URINE NEGATIVE (NEGATIVE); LEUKOCYTE ESTERASE ,URINE TRACE (NEGATIVE); NITRITE,URINE NEGATIVE (NEGATIVE); PROTEIN,URINE DIPSTICK NEGATIVE (NEGATIVE)
[2018-02-27 19:09] LABS: BILIRUBIN,URINE NEGATIVE (NEGATIVE); URINE UROBILINOGEN 0.2 mg/dL (0.2 - 1)
[2018-02-27 19:19] LABS: RBC,URINE >50 /HPF (0-5)
[2018-02-27 19:32] LABS: ALBUMIN/GLOBULIN RATIO 1.1 (0.8-2.0); ANION GAP 12.1 mmol/L (8-16); CALCIUM 9.7 mg/dL (8.4-10.2); CREATININE, SERUM 1.37 mg/dL (0.72-1.25); POTASSIUM 4.1 mmol/L (3.5-5.1)
--- NOTE | 2018-02-27 19:55 | Diagnostic Imaging Report ---
EXAMINATION: CT of the abdomen and pelvis without contrast. TECHNIQUE: Spiral CT images of the abdomen and pelvis were performed from the lung bases to the lesser trochanters. No intravenous contrast was given per renal stone protocol. Coronal and sagittal reformatted images were obtained. COMPARISON: None available. CLINICAL HISTORY:Right-sided flank pain DISCUSSION: ABSENCE OF INTRAVENOUS CONTRAST DECREASES SENSITIVITY FOR DETECTION OF FOCAL LESIONS AND VASCULAR PATHOLOGY. ABDOMEN/PELVIS: LOWER THORAX: Linear opacities in the lateral lingula and posterior and lateral left lower lobe, likely representing scarring. HEPATOBILIARY: Normal hepatic size and contour. No focal lesions. No intra or extrahepatic biliary ductal dilation. GALLBLADDER: Cholecystectomy clips. SPLEEN: No splenomegaly. PANCREAS: No focal masses or ductal dilatation. ADRENALS: No adrenal nodules. KIDNEYS/URETERS: 2 punctate nonobstructing calculi in the right interpolar region (series 3, images 50 and 54). No other renal or ureteral calculi. No hydronephrosis, hydroureter or evidence of obstruction. No renal contour abnormalities or significant perinephric stranding. PELVIC ORGANS/BLADDER: Bladder is unremarkable, without focal lesions, wall thickening or bladder calculi. Prostate is unremarkable. PERITONEUM/RETROPERITONEUM: No free air or fluid. LYMPH NODES: No intra-abdominal,retroperitoneal, pelvic or inguinal lymphadenopathy. VESSELS: Minimal atherosclerotic calcification of the distal abdominal aorta. GI TRACT: No bowel dilation or evidence of obstruction. No pericolonic inflammatory changes. Metallic clips in the distal cecum and likely from prior appendectomy. BONES AND SOFT TISSUES: No aggressive lytic lesions. Small fat-containing umbilical hernia (series 3, image 97). IMPRESSION: 1. 2 punctate nonobstructing calculi in the right interpolar region. No other renal calculi. 2. No ureteral calculi, hydronephrosis or obstruction. Signed by: Dr. Tommy Johnson M.D. on 02/27/2018 7:51 PM
[2018-02-27] MEDS ORDERED: FENTANYL CITRATE/PF 100MCG/2 ML INJ IV ONE (20:15)
[2018-02-27] MEDS ORDERED: PROMETHAZINE HC25 M1 PO (20:15)
[2018-02-27] MEDS ORDERED: TYLENOL WITH C1 EACH PO (20:15)
[2018-02-27 21:59] VITALS: BP 126/84
== END 2018-02-27 22:03 | disposition home or self-care (01) ==
LOC: ER 18:04
DX: R10.31 Right lower quadrant pain (principal); M54.5 Low back pain; R31.29 Other microscopic hematuria; Z88.0 Allergy status to penicillin; Z88.8 Allergy status to other drugs, medicaments and biological substances; Z91.018 Allergy to other foods; Z87.442 Personal history of urinary calculi; J45.909 Unspecified asthma, uncomplicated; F31.9 Bipolar disorder, unspecified; F41.9 Anxiety disorder, unspecified; F17.210 Nicotine dependence, cigarettes, uncomplicated; Z83.3 Family history of diabetes mellitus; Z82.49 Family history of ischemic heart disease and other diseases of the circulatory system
CPT/HCPCS: 36415; 74176; 80053; 81001; 85025; 99284; J2270; J2550; J7030

== ENCOUNTER → 2021-08-01 | Day surgery (SDC) | payer BC ==
[2021-07-28 13:48] LABS: BASOPHILS # (AUTO) 0.1 (0.0-0.1); BASOPHILS % 1.1 % (0.0-1.0); EOSINOPHILS # (AUTO) 0.2 (0.0-0.4); EOSINOPHILS % 2.9 % (0.0-6.0); HEMATOCRIT 42.7 % (38.2-49.6); HEMOGLOBIN 13.6 g/dL (14.0-18.0); LYMPHOCYTES # (AUTO) 1.8 (1.0-3.2); LYMPHOCYTES % 25.4 % (18.0-39.1); MEAN CORPUSCULAR HEMOGLOBIN 29.9 pg (28-32); MEAN CORPUSCULAR HGB CONC 31.9 g/dL (31-35); MEAN CORPUSCULAR VOLUME 93.8 fL (81-99); MONOCYTES # (AUTO) 0.5 (0.2-0.8); MONOCYTES % 7.1 % (4.4-11.3); NEUTROPHILS # (AUTO) 4.5 (2.1-6.9); NEUTROPHILS % 63.2 % (38.7-80.0); PLATELET COUNT 190 x10e3/uL (140-360); RED BLOOD COUNT 4.55 x10e6/uL (4.3-5.7); RED CELL DISTRIBUTION WIDTH 14.9 % (11.7-14.4)
[2021-07-28 14:00] LABS: ANION GAP 11.5 mmol/L (8-16); CREATININE, SERUM 1.02 mg/dL (0.72-1.25); POTASSIUM 4.5 mmol/L (3.5-5.1)
[~2021-08-01] MED LIST changes: +ATORVASTATIN CA20 MG PO; +BUPIVACAINE 0.25% 30ML SDV ONE; +DEXAMETHASONE SOD PHOS INJ 4 MG/ML SDV ONE; +DICLOFENAC PO; +FENTANYL CITRATE/PF 100MCG/2 ML INJ ONE; +GLYCOPYRROLATE INJ 0.2 MG/ML VIAL ONE; +HYDROCODON-ACE1 EA11 PO; +HYDROCODON-ACE1 EAC9 PO; +LIDOCAINE HCL 2% LOCAL INJ 5 ML SDV VIAL INJ ONE; +LORATADINE10 MG PO; +MIDAZOLAM HCL 2 MG/2 ML VIAL ONE; +POVIDONE IODINE 0.05% 0.05 % ML PO ONE; +PROAIR DIGIHAL90 MCG INH; +PROMETHAZINE HC25 M1 PO; +PROPOFOL IV EMULSION 10 MG/ML 20 ML VIAL ONE; +QUETIAPINE FUM100 MG PO; +SEVOFLURANE INHAL SOLN 250 ML PEN BTL ONE; +SODIUM CHLORIDE 0.9% 250ML 250 ML ONE; +SYNTHROID75 MCG PO; +Vancomycin IV 1 GM VIAL ONE; -XANAX0.5 MG; +XANAX0.5 MG PO
[2021-08-01 09:40] VITALS: BP 110/74
== END | disposition home or self-care (01) ==
LOC: OR 05:42
PROVIDERS: ATTEND Surgery
DX: C81.95 Hodgkin lymphoma, unspecified, lymph nodes of inguinal region and lower limb (principal); G89.29 Other chronic pain; E03.9 Hypothyroidism, unspecified; K21.9 Gastro-esophageal reflux disease without esophagitis; E66.9 Obesity, unspecified; R00.1 Bradycardia, unspecified; M51.9 Unspecified thoracic, thoracolumbar and lumbosacral intervertebral disc disorder; F41.0 Panic disorder [episodic paroxysmal anxiety]; F43.10 Post-traumatic stress disorder, unspecified; F31.9 Bipolar disorder, unspecified; F17.290 Nicotine dependence, other tobacco product, uncomplicated; Z88.6 Allergy status to analgesic agent; Z88.0 Allergy status to penicillin; Z88.8 Allergy status to other drugs, medicaments and biological substances; Z91.018 Allergy to other foods; Z01.810 Encounter for preprocedural cardiovascular examination; Z01.812 Encounter for preprocedural laboratory examination; Z01.818 Encounter for other preprocedural examination; Z20.822 Contact with and (suspected) exposure to COVID-19; Z79.899 Other long term (current) drug therapy; Z68.34 Body mass index [BMI] 34.0-34.9, adult; Z80.6 Family history of leukemia
CPT/HCPCS: 36415; 38531; 71046; 80048; 85025; 87071; 87075; 87102; 87205; 87206; 88305; 93005; J1100; J2001; J2250; J2704; J3010; J3370; J7050; U0002

== ENCOUNTER 2024-11-16 15:26 | Emergency (ER) | payer BC, OTHER ==
[~2024-11-16] VITALS: Ht 172.7 cm; Wt 94.3 kg
[~2024-11-16 15:26] MED LIST changes: -BUPIVACAINE 0.25% 30ML SDV ONE; -DEXAMETHASONE SOD PHOS INJ 4 MG/ML SDV ONE; -FENTANYL CITRATE/PF 100MCG/2 ML INJ ONE; -GLYCOPYRROLATE INJ 0.2 MG/ML VIAL ONE; -LIDOCAINE HCL 2% LOCAL INJ 5 ML SDV VIAL INJ ONE; -MIDAZOLAM HCL 2 MG/2 ML VIAL ONE; -POVIDONE IODINE 0.05% 0.05 % ML PO ONE; -PROPOFOL IV EMULSION 10 MG/ML 20 ML VIAL ONE; -SEVOFLURANE INHAL SOLN 250 ML PEN BTL ONE; -SODIUM CHLORIDE 0.9% 250ML 250 ML ONE; -Vancomycin IV 1 GM VIAL ONE
[2024-11-16 16:48] LABS: BASOPHILS % 0.5 % (0.0-1.0); EOSINOPHILS % 3.7 % (0.0-6.0); LYMPHOCYTES % 13.0 % (18.0-39.1); MONOCYTES % 7.3 % (4.4-11.3); NEUTROPHILS % 75.1 % (38.7-80.0); RED CELL DISTRIBUTION WIDTH 19.1 % (11.7-14.4)
[2024-11-16] MEDS: SODIUM CHLORIDE 0.9% 1000ML 1,000 ML IV STA (17:03)
[2024-11-16] MEDS: ONDANSETRON HCL INJ 2MG/ML 2ML 2 MG/ML VIAL IV STA (17:04)
[2024-11-16 17:06] LABS: EST GLOMERULAR FILTRATION RATE 67.0 ML/MIN (>=60)
[2024-11-16] MEDS: ACETAMINOPHEN 325 MG TAB PO STA (19:11)
[2024-11-16 19:50] LABS: LEUKOCYTE ESTERASE ,URINE SMALL (NEGATIVE); PROTEIN,URINE DIPSTICK NEGATIVE (NEGATIVE); URINE UROBILINOGEN 0.2 mg/dL (0.2 - 1)
[2024-11-16 20:01] LABS: EPITHELIAL CELLS,URINE FEW /LPF
[2024-11-16 20:13] VITALS: TEMP 98.9
[2024-11-16] MEDS: HYDROCODONE/APAP 5MG-325MG TAB PO STA (21:18)
[2024-11-16 21:21] VITALS: PULSE 76; RESP 17
[2024-11-16 21:27] VITALS: BP 111/79; PULSE 76; RESP 17; TEMP 98.9; O2SAT 97
== END 2024-11-16 21:36 | disposition home or self-care (01) ==
LOC: ER 16:44
DX: R53.83 Other fatigue (principal); R10.31 Right lower quadrant pain; N20.0 Calculus of kidney; K76.0 Fatty (change of) liver, not elsewhere classified; F41.9 Anxiety disorder, unspecified; R94.31 Abnormal electrocardiogram [ECG] [EKG]
CPT/HCPCS: 36415; 74176; 80053; 81001; 82550; 83690; 84484; 85025; 93005; 99284; J2405; J7030